=== PATIENT | male | born 1945 | race Hispanic/Latino ===

== ENCOUNTER 2019-07-13 21:02 | Inpatient (IN) | payer MEDICARE, SELFPAY ==
[2019-07-13 21:03] VITALS: BP 137/89; PULSE 111; RESP 26; TEMP 36.3; O2SAT 98; BMI 26.0
--- NOTE | 2019-07-13 21:26 | EKG12_ITS ---
Test Reason : DYSRHYTHMIA Blood Pressure : / mmHG Vent. Rate : 101 BPM Atrial Rate : 101 BPM P-R Int : 154 ms QRS Dur : 106 ms QT Int : 360 ms P-R-T Axes : 062 -73 074 degrees QTc Int : 466 ms Sinus tachycardia Left anterior fascicular block Poor R wave progression Abnormal ECG Confirmed by CHERELLE MALIN, MARINA ([id number]), publications editor SALEEM LAMB ([id number] on 07/15/2019 10:43:49 AM Referred By: Confirmed By:MARINA VILLARREAL MD
[2019-07-13] MEDS: 0.9% Normal Saline 1,000 ML 1000 ML IV (21:28)
--- NOTE | 2019-07-13 21:29 | ED.RN ---
NO OLD EKGS IN MUSE
[2019-07-13] MEDS: Ondansetron 4 MG/2 ML Vial IV (21:30)
[2019-07-13 21:37] LABS: Absolute Lymphocyte Count 0.58 X10^3/uL (0.83-4.51); Absolute Neutrophil Count 22.4 X10^3/uL (2.0-7.7); Basophil# 0.06 X10^3/uL; Basophil% 0.2 % (0-1); Hematocrit 54.5 % (40-54); Hemoglobin 17.1 g/dL (13.0-16.5); Lymphocyte # 0.58 X10^3/ul (4.0); Lymphocyte % 2.4 % (19-41); Mean Corp Hgb Conc 31.4 g/dL (32-36); Mean Corpuscular Hgb 31.5 pg (27.0-32.0); Mean Corpuscular Volume 100.6 fL (80-94); Mean Platelet Vol. 12.5 fl (6.2-12.0); Monocyte# 1.29 X10^3/uL; Monocyte% 5.2 % (0-10); NRBC Flagged by Analyzer 0 % (0-5); Neutrophil % 90.8 % (47-70); POSITIVE DIFFERENTIAL YES; Platelet Count 283 K/mm3 (150-450); RBC Distribution Width CV 12.6 % (11.6-14.6); RBC Distribution Width SD 46.9 fl (35.1-43.9); Red Blood Count 5.42 M/mm3 (4.6-6.2); White Blood Count 24.7 K/mm3 (4.4-11.0)
[2019-07-13 21:41] LABS: Differential Indicated SCAN CRITERIA MET
[2019-07-13 21:54] LABS: Bacteria 0 SEEN /hpf (None Seen); Mucous, Urine 0 SEEN /hpf (<or=2+); Red Blood Cells-Urine 0 SEEN /hpf (0-5); Squamous Epithelial Cells - UA 0 SEEN /hpf (0-5); White Blood Cells 0 SEEN /hpf (0-5)
--- NOTE | 2019-07-13 21:57 | RAD_ITS ---
HISTORY: SOB, NAUSEA/VOMITING, WEAKNESS X1 WEEKPATIENT UNABLE TO COOPERATE WITH BREATHING INSTRUCTIONS EXAM: XR Chest 2 Views: COMPARISON: None FINDINGS: # of images incl. paperwork: 3 Atherosclerotic plaque within the aortic arch Lungs are clear. Heart is not enlarged. Thoracic kyphosis with multiple anterior enthesophytes Pulmonary vascularity is distinct. No effusions. RAD/Chest PA and Lateral IMPRESSION: No acute cardiopulmonary disease perceived. at 2212 Reported and signed by: Shayne Bennett MD Electronically Signed: Shayne Bennett MD at 22:11 EDT Tel , Service support ,
[2019-07-13 21:59] LABS: Color, Urine Yellow (Yellow); Glucose, Dipstick 1000 mg/dl (Normal); Leukocyte Esterase-Dipstick Negative /ul (Negative); Nitrite-Dipstick Negative (Negative); Occult Blood-Urine 25 /ul (Negative); Protein-Dipstick 15 mg/dl (Negative); Specific Gravity, Urine 1.015 (1.002-1.030); Urine Bilirubin Dipstick Negative (Negative); Urine Clarity Clear (Clear); Urine Urobilinogen Normal (Normal)
[2019-07-13 22:01] LABS: Ketone-Dipstick 150 mg/dl (Negative)
[2019-07-13 22:02] LABS: AST(SGOT) 14 U/L (15-37); Alanine Aminotransfer ALT/SGPT 36 U/L (16-61); Albumin, Serum 4.2 g/dL (3.2-5.0); Alkaline Phosphatase 144 U/L (45-117); Anion Gap 35 (5-15); BUN 66 mg/dL (7-18); BUN/Creat Ratio 22.4 RATIO (10-20); Calcium,Total 9.4 mg/dL (8.5-10.1); Chloride 81 mmol/L (98-107); Creatinine, Serum 2.95 mg/dL (0.70-1.30); EST Glomerular Filtration Rate 22 mL/min (>60); Est Glom Filt Rate - Afr Amer 27 mL/min (>60); Estimated Creatinine Clearance 21.47 ml/min; Globulin 4.1 g/dL (2.2-4.2); Glucose 1345 mg/dL (74-106); Lactic Acid 4.3 mmol/L (0.4-1.9); Potassium 4.5 mmol/L (3.5-5.1); Protein, Total 8.3 g/dL (6.4-8.2); Sodium Level 124 mmol/L (136-145)
[2019-07-13 22:04] LABS: Anisocytosis RARE; Differential Comment SEE COMMENTS; Macrocytosis RARE; Platelet Estimate ADEQUATE (ADEQ); Red Cell Morphology N CHROM NORMAL (NORM C&C)
[2019-07-13 22:05] VITALS: BP 173/101; PULSE 105; RESP 24; TEMP 36.6; O2SAT 98
--- NOTE | 2019-07-13 22:16 | HP.PCM_ITS ---
Problem List (1) DKA (diabetic ketoacidoses) Status: Acute Qualifiers: Diabetes mellitus type: other specified (including IGNACIO) Diabetes mellitus complication detail: without coma Qualified Code(s): E13.10 - Other specified diabetes mellitus with ketoacidosis without coma (2) Lactic acidosis Status: Acute (3) GILBERTO (acute kidney injury) Status: Acute (4) Elevated BP without diagnosis of hypertension Status: Acute (5) Alcohol abuse Status: Chronic (6) Former tobacco use Status: Chronic History of Present Illness Date of Admission: 07/13/19 Chief Complaint: Dyspnea, N/V, malaise x 1 week The patient is a 73 y/o M w/ PMHx: EtOH Abuse (notes sober x 3 months), Former Tobacco use not on any medications who presents to the [facility] ED on 07/13/19 with history of dyspnea, increased urination, increased thirst x 1 week with onset now nausea today with emesis x 2 on day of ED presentation with lightheadedness not improving and worsening over the last 24 hours prompting ED presentation. He denies any cough, congestion, fever or chills, body aches or muscle aches, diarrhea but does admit that he has a alteration described per him as a loss of sense of taste starting 4 days prior however notes that he can still smell things. He denies any ill contacts. Work-up in the ED included T 97.9, heart rate initially 111, BP 137/89 with repeat 173/101, respiratory rate 26, 98% on room air, CBC with WBC 24.7, hemoglobin 17.1, platelet 283 with significant left shift with also concurrent lymphopenia, CMP with sodium 124, chloride 81, carbon oxide 8, anion gap 35, BUN/creatinine 66/2.95, glucose 1345, lactic acid 4.3, total bilirubin 1.10, AST/ALT 14/36, alk phos 144, urinalysis with specific gravity 1.015, protein 15, glucose 1000, ketones 150, occult blood 25 otherwise unremarkable, ethyl alcohol 4, chest x-ray with no acute cardiopulmonary findings, EKG w/ sinus tachycardia with no acute evidence of ischemia. In the ED patient administered Zofran, normal saline as well as initiated on an insulin drip. Discussed with ED physician and lower suspicion for COVID but given patient's symptoms to be cautious placed in COVID precautions with COVID testing requested. Past Medical History Past Medical History (Chronic Problems): Chronic Problems Alcohol abuse (Chronic) Former tobacco use (Chronic) Allergies No Known Allergies Allergy (Verified 07/13/19 21:05) Home Medications: Ambulatory Orders Medication Instructions Recorded NK 07/13/19 Surgical History: no surgical history Psychiatric History: No pertinent psych hx Lives: Spouse/ Significant Other Smoking Status: Former smoker Tobacco Use: Non-smoker Alcohol: Sober - Notes sober x 3 months. Drugs: None - *Family History Maternal History Items: - - Patient denies any market maternal or paternal family history including heart disease, diabetes or cancer. Paternal History Items: - - Patient denies any market maternal or paternal family history including heart disease, diabetes or cancer. Review of Systems Constitutional: Reports: Anorexia, Malaise, Weakness, Fatigue. Denies: Chills, Fever, Weight Change HEENT: Denies: Head Aches, Post Nasal Drip, Sinus Congestion, Sinus Drainage, Sore Throat, Visual Changes Cardiovascular: Reports: Light Headedness. Denies: Chest Pain, Chest Pressure, Chest Tightness, Orthopnea, Palpitations, Paroxysmal Noc. Dyspnea, Syncope Respiratory: Reports: Shortness of Breath. Denies: Cough, Shortness of breath at rest, Shortness of breath upon exertion, Sputum production, Wheezing Gastrointestinal: Reports: Nausea, Vomiting. Denies: Abdominal Pain, Constipation, Diarrhea Genitourinary: Denies: Dysuria Musculoskeletal: Denies: Joint Pain, Joint Tenderness, Muscle pain Skin: Denies: Rash, Wounds Neurological: Denies: Numbness, Tingling, Focal weakness Psychiatric: Denies: Anxiety, Depression, Homicidal Ideations, Suicidal Ideations Endocrine: Reports: Polydipsia, Polyuria Hematologic/ Lymphatic: Denies: Easy Bruising, Easy Bleeding VTE Information - Inpt Only VTE Present on Admission: No VTE Mechan Device Prophylaxis: SCD's VTE Pharm Prophylaxis ordered?: Yes Patient Problems: Active and Suspected Problems DKA (diabetic ketoacidoses) (Acute) Lactic acidosis (Acute) GILBERTO (acute kidney injury) (Acute) Elevated BP without diagnosis of hypertension (Acute) Subjective: Seated upright in the ED bed, fatigued and ill-appearing, no obvious distress. Objective: Physical Examination: General: awake, alert, oriented x 3 and cooperative, seated upright in the ED bed, fatigued and ill-appearing, translations via his granddaughter who is present. Skin: normal color, turgor, no icterus, cyanosis. HEENT: AT/NC, EOMI, injected sclera, PERRLA, dry MM, no carotid bruits or JVD noted. Lungs: Diminished breath sounds, greater bases, mildly increased respiratory rate otherwise no obvious distress, no rales, ronchi or wheezing. Heart: Tachycardic with regular rhythm; no gallop, rub audible. Abdomen: soft, NTTP, ND, normal BS, positive HM. Extremities: no cyanosis, clubbing, or edema. Neurological: patient awake, alert, oriented as noted; cognitive function near baseline intact per discussion with granddaughter who is familiar with patient; pupils equally reactive to light and accomodation; cranial nerves II-XII grossly normal, moving all 4 extremities, no focal deficits, strength severely global decrease secondary to acute presentation. Psychiatric: affect appears fatigued, ill-appearing, no acute evidence of depressive or anxiety feelings. - Physical Exam Vitals/I&O's: Vital Signs Temp Pulse Resp BP Pulse Ox 97.9 F 105 H 24 H 173/101 H 98 07/13/19 22:05 07/13/19 22:05 07/13/19 22:05 07/13/19 22:05 07/13/19 22:05 Oxygen Delivery Method Room Air Weight: 170 lb Body Mass Index (BMI) 26.0 Laboratory Results 07/13/19 21:30: WBC 24.7 H, RBC 5.42, Hgb 17.1 H, Hct 54.5 H, MCV 100.6 H, MCH 31.5, MCHC 31.4 L, RDW Std Deviation 46.9 H, RDW Coeff of Oscar 12.6, Plt Count 283, MPV 12.5 H, Immature Gran % (Auto) 1.400 H, Neut % (Auto) 90.8 H, Lymph % (Auto) 2.4 L, [place] % (Auto) 5.2, Eos % (Auto) 0.0, Baso % (Auto) 0.2, Absolute Neuts (auto) 22.4 H, Absolute Lymphs (auto) 0.58 L, Nucleated RBC % 0, Differential Comment SEE COMMENTS, Diff Path Review May foll, Platelet Estimate ADEQUATE, RBC Morphology N CHROM, Anisocytosis RARE, Macrocytosis RARE 07/13/19 21:30: Sodium 124 L, Potassium 4.5, Chloride 81 L, Carbon Dioxide 8.0 L*, Anion Gap 35 H, BUN 66 H, Creatinine 2.95 H, Estim Creat Clear Calc 21.47, Est GFR (MDRD) Af Amer 27 L, Est GFR (MDRD) Non-Af 22 L, BUN/Creatinine Ratio 22.4 H, Glucose 1345 H*, Calcium 9.4, Total Bilirubin 1.10 H, AST 14 L, ALT 36, Alkaline Phosphatase 144 H, Total Protein 8.3 H, Albumin 4.2, Globulin 4.1, Albumin/Globulin Ratio 1.0 07/13/19 21:30: Ethyl Alcohol 4.0 07/13/19 21:30: Lactic Acid 4.3 H* 07/13/19 21:50: Urine Color Yellow, Urine Clarity Clear, Urine pH 5.0, Ur Specific [place] 1.015, Urine Protein 15 H, Urine Glucose (UA) 1000 H, Urine Ketones 150 H, Urine Occult Blood 25 H, Urine Nitrite Negative, Urine Bilirubin Negative, Urine Urobilinogen Normal, Ur Leukocyte Esterase Negative, Urine RBC 0 SEEN, Urine WBC 0 SEEN, Ur Squamous Epith Cells 0 SEEN, Urine Bacteria 0 SEEN, Urine Mucus 0 SEEN Current Medications Sodium Chloride () 1,000 mls @ 1,000 mls/hr IV .Q1H ONE Stop: 07/13/19 22:24 Last Admin: 07/13/19 21:28 Dose: 1,000 mls/hr Documented by: Sodium Chloride () 1,000 mls @ 999 mls/hr IV .Q1H1M ONE Stop: 07/13/19 23:10 Insulin Human Lispro 100 unit/ (Sodium Chloride) 100 mls @ 7.711 mls/hr IV .[id number] [facility]; Protocol Assessment/Plan All Active Problems DKA (diabetic ketoacidoses) (Acute) Lactic acidosis (Acute) GILBERTO (acute kidney injury) (Acute) Elevated BP without diagnosis of hypertension (Acute) The patient is a 73 y/o M w/ PMHx: EtOH Abuse (notes sober x 3 months), Former Tobacco use not on any medications who presents to the [facility] ED on 07/13/19 with history of dyspnea, increased urination, increased thirst x 1 week with onset now nausea today with emesis x 2 on day of ED presentation with lightheadedness not improving and worsening over the last 24 hours prompting ED presentation. 1. DKA w/ Presumed New Onset Diabetes mellitus type II: Patient started on an insulin drip in the ED. Will admit to the ICU with ICU consultation, obtain ABG given notable CMP findings, continue on insulin drip, check serial K+, glucose w/ IVF changes pending these levels, serial chemistry, obtain mag, phos daily w/ repletion as needed, obtain HgbA1c, transition to SC regimen when gap closed w/ overlap on drip, nutrition consultation. Encouraged diet and insulin regimen compliance. Given patient reported alteration to sense of taste COVID testing has been requested but low suspicion. Will maintain on precautions pending these test results. 2. Lactic acidosis: Secondary to #1, admission LA 4.3, continue aggressive h ydration and trend per facility protocol. 3. Presumed Acute kidney injury: Secondary to acute presentation #1. Admission BUN/Cr 66/2.95, unclear prior baseline, will continue to aggressively hydrate as noted, hold any nephrotoxic regimen, if no improvement would obtain FeNa and renal US. 4. Elevated BP without HTN Diagnosis: Initial BP normal range, repeat elevated, continue to closely monitor and add regimen if appropriate, PRN hydralazine in interim. 5. History of alcohol abuse: Noted sobriety x3 months now, ethyl alcohol level unremarkable, case management consulted, magnesium and phosphorus levels requested as noted. Once patient clinically improved with resolution of nausea and emesis would initiate multivitamin thiamine and folic acid. 6. GERD: Maintain on protonix. 7. DVT Prophylaxis: SCDS, heparin. 8. CODE status: Patient does not have a healthcare power of sports attorney nor living will. Granddaughter is present and helping assist with translation. Discussed CODE status at length including difference between FULL code, DNR-CCA and DNR-CC status. Following discussions about the differences in these status, requested Full Code. Advanced Care Planning Face to Face Time: 16 minutes. Inpatient E&M: 79181 Init Hosp L3 Procedures: 61153 Advncd Care Plan 30 Min
[2019-07-13] MEDS: 0.9% Normal Saline 1,000 ML 999 ML IV (22:23)
--- NOTE | 2019-07-13 22:26 | ED.DCSUM_ITS ---
History of Present Illness Chief Complaint: Shortness of Breath Detail of Chief Complaint: Patient reports shortness of breath for the past couple of days. Informant: Patient, Family, - - Family members were interpreters Onset: Days Context: Sudden Onset Timing: Continuous Quality: Shortness of breath, nausea vomiting, polyuria, polydipsia Location: Not applicable Current Severity: Severe Maximum Severity: Severe Worsened by: Nothing Relieved by: Nothing Associated Symptoms: No other symptoms Narrative: Patient is a 73-year-old nonspeaking male who has been in the [place] for the past 3 months. He has no medical problems. Family states he drank daily until 3 months ago. He has had 1 drink in the past week. There is no history of PE or DVT. There is no past medical history. He denies chest pain. He denies abdominal pain. He denies joint pain or swelling. Prior similar symptoms: No Recent Illness/Hospitalization: No Past Medical History - Allergies and Home Meds Allergies/Adverse Reactions: Allergies No Known Allergies Allergy (Verified 07/13/19 21:05) Primary Care Physician: Care Physician,No Primary [Primary Care Provider] - Prior records reviewed: No Past Medical History: None Surgical History: noncontributory Lives: With Family Smoking Status: Never smoker Alcohol: Sober Drugs: None Review of Systems General: Reports: Malaise. Denies: Chills, Fever, Subjective Eyes: Denies: Visual changes - bilaterally, Blurred Vision - bilaterally ENT: Denies: Bilateral ear pain, Rhinorrhea, Sore throat Cardiovascular: Denies: Chest pain, Palpitations Respiratory: Reports: Dyspnea. Denies: Cough, Sputum, Dyspnea on exertion, Orthopnea, Paroxysmal nocturnal dyspnea, -, - Gastrointestinal: Reports: Nausea, Vomiting. Denies: Abdominal pain, Diarrhea, Constipation, Melena, Hematochezia, -, - Genitourinary: Denies: Dysuria, Hematuria, Frequency Musculoskeletal: Denies: Myalgias, Arthralgias, Neck pain, Back pain, Swelling, Extremity Pain, -, - Skin: Denies: Rash, Wounds Neurological: Reports: Weakness. Denies: Headache, Parasthesia, Numbness Psych: Denies: Depression, Anxiety Endocrine: Reports: Polyuria, Polydipsia. Denies: Heat intolerance, Cold intolerance Hematologic: Denies: Easy bruising, Easy bleeding Allergy: Denies: Uticaria, Swelling of the mouth, Swelling of the tongue Physical Exam Vital Signs/Narrative: Vital Signs Temp Pulse Resp BP Pulse Ox 07/13/19 22:05 97.9 F 105 H 24 H 173/101 H 98 07/13/19 21:03 97.4 F L 111 H 26 H 137/89 H 98 Inital Vital Signs reviewed: Yes General: Well nourished, Well developed, No Acute Distress Head: Normocephalic, Atraumatic Eyes: Perrl, EOMI ENT: No rhinorrhea, TM's clear, Dry mucous membranes. Negative for: Nasal congestion, Sinus tenderness Neck: Supple, Nontender, No lymphadenopathy, No JVD Cardiovascular: Regular rhythm, No murmurs, Tachycardia Respiratory: No distress, CTA bilaterally, Chest nontender, - - Patient is tachypneic. Abdomen: Soft, Nontender, Nondistended, Normal bowel sounds Back: Nontender, Normal Inspection. Negative for: CVA tenderness, Spinal tenderness Extremities: Nontender, No edema Skin: Normal color, No rash, No Trauma. Negative for: Cyanosis, Diaphoresis, Jaundice Neurological: Alert, Oriented x3, Cranial nerves II-XII grossly intact, Normal Strength, Normal Sensation, Normal DTR Psychological: Normal affect, Normal Mood Diagnostic/Tx/Re-eval Chest X-Ray - ED: 2 View, Read by Radiologist, Normal, Heart, Lungs, Mediastinum, Bony Structures, No Acute Disease Impressions Chest X-Ray 07/13/19 21:57 IMPRESSION: No acute cardiopulmonary disease perceived. at 2212 Reported and signed by: Shayne Bennett MD Electronically Signed: Shayne Bennett MD at 22:11 EDT Tel , Service support , 07/13/19 21:57 Chest PA and Lateral [RAD] Stat Laboratory Results 07/13/19 07/13/19 07/13/19 21:30 21:30 21:30 WBC 24.7 H RBC 5.42 Hgb 17.1 H Hct 54.5 H MCV 100.6 H MCH 31.5 MCHC 31.4 L RDW Std Deviation 46.9 H RDW Coeff of Oscar 12.6 Plt Count 283 MPV 12.5 H Immature Gran % (Auto) 1.400 H Neut % (Auto) 90.8 H Lymph % (Auto) 2.4 L [place] % (Auto) 5.2 Eos % (Auto) 0.0 Baso % (Auto) 0.2 Absolute Neuts (auto) 22.4 H Absolute Lymphs (auto) 0.58 L Nucleated RBC % 0 Differential Comment SEE COMMENTS Diff Path Review May foll Platelet Estimate ADEQUATE RBC Morphology N CHROM Anisocytosis RARE Macrocytosis RARE Sodium 124 L Potassium 4.5 Chloride 81 L Carbon Dioxide 8.0 L* Anion Gap 35 H BUN 66 H Creatinine 2.95 H Estim Creat Clear Calc 21.47 Est GFR (MDRD) Af Amer 27 L Est GFR (MDRD) Non-Af 22 L BUN/Creatinine Ratio 22.4 H Glucose 1345 H* Lactic Acid Calcium 9.4 Total Bilirubin 1.10 H AST 14 L ALT 36 Alkaline Phosphatase 144 H Total Protein 8.3 H Albumin 4.2 Globulin 4.1 Albumin/Globulin Ratio 1.0 Urine Color Urine Clarity Urine pH Ur Specific [place] Urine Protein Urine Glucose (UA) Urine Ketones Urine Occult Blood Urine Nitrite Urine Bilirubin Urine Urobilinogen Ur Leukocyte Esterase Urine RBC Urine WBC Ur Squamous Epith Cells Urine Bacteria Urine Mucus Ethyl Alcohol 4.0 Acetone Level 07/13/19 07/13/19 07/13/19 21:30 21:30 21:50 WBC RBC Hgb Hct MCV MCH MCHC RDW Std Deviation RDW Coeff of [place] Plt Count MPV Immature Gran % (Auto) Neut % (Auto) Lymph % (Auto) Green % (Auto) Eos % (Auto) Baso % (Auto) Absolute Neuts (auto) Absolute Lymphs (auto) Nucleated RBC % Differential Comment Diff Path Review Platelet Estimate RBC Morphology Anisocytosis Macrocytosis Sodium Potassium Chloride Carbon Dioxide Anion Gap BUN Creatinine Estim Creat Clear Calc Est GFR (MDRD) Af Amer Est GFR (MDRD) Non-Af BUN/Creatinine Ratio Glucose Lactic Acid 4.3 H* Calcium Total Bilirubin AST ALT Alkaline Phosphatase Total Protein Albumin Globulin Albumin/Globulin Ratio Urine Color Yellow Urine Clarity Clear Urine pH 5.0 Ur Specific [place] 1.015 Urine Protein 15 H Urine Glucose (UA) 1000 H Urine Ketones 150 H Urine Occult Blood 25 H Urine Nitrite Negative Urine Bilirubin Negative Urine Urobilinogen Normal Ur Leukocyte Esterase Negative Urine RBC 0 SEEN Urine WBC 0 SEEN Ur Squamous Epith Cells 0 SEEN Urine Bacteria 0 SEEN Urine Mucus 0 SEEN Ethyl Alcohol Acetone Level LARGE H Patient has elevated white count and elevated lactate will obtain blood cultures. Patient does not have source. Suspect the elevated white count are lactate are due to the DKA, stress reaction. - Rhythm Strip Rhythm Strip: Sinus Tach Rate: 122 Ectopy: None - EKG Initial EKG Interpretation: Sinus Tachycardia - Tachycardia rate of 101. There is evidence of a left anterior fascicular block. DE interval is 154 ms. QRS duration 106 ms. QT duration 360 ms. [place] to left. - Medical Decision Making Presents with shortness of breath. He is tachycardic and tachypneic. He is clinically profoundly dehydrated. Fact that he has had increased urination concern patient may have DKA. Doubt AKA. Doubt PE or DVT. Will obtain EKG, chest x-ray and appropriate labs. He did receive 1 L of normal saline. He will receive a second liter of normal saline prior to initiation of insulin at 0.1 units/kg. EKG was obtained to assess for hyperkalemia and ischemia which is not uncommon if patient in DKA. - Critical Care Time Critical care time (excluding procedures): 30-74 minutes - Critical care time 33 minutes including need for family members to obtain history, documentation, treatments., Discussing w/Patient &/or Family/Piece Worker - Use of interpreter for the deaf and history from family members., Discussing w/Consultants, Arranging Admission or Transfer ED Disposition - Plan for ED Patient: Disposition: Acute Care Hospital [facility] Diagnosis: Diabetic ketoacidosis, Leukocytosis, Lactic acidosis due to diabetes mellitus, Acute kidney injury Referrals: Care Physician,No Primary [Primary Care Provider] -
[2019-07-13 22:41] VITALS: BP 165/97; PULSE 105; RESP 24; TEMP 36.6; O2SAT 98
--- NOTE | 2019-07-13 22:53 | ED.RN ---
Dr Phillips notified accucheck reading hi. no need for serum glucose per
[2019-07-13 23:00] VITALS: BP 151/88; PULSE 104; RESP 24; TEMP 36.6; O2SAT 99
[2019-07-13 23:08] LABS: Blood Gas Specimen Type ART
[2019-07-13 23:09] LABS: Allen Test POS; O2 Delivery Device Room Air; SITE R RADIAL; Time Given 2158; pH 7.21 (7.35-7.45)
[2019-07-13 23:10] LABS: Base Excess -23 mmol/L (-2 to +2); Bicarbonate 4.5 mmol/L (22-26); PO2 125 mmHG (75-100); SO2 98 % (95-99); Total Carbon Dioxide < 5 mmol/L; pCO2 11.2 mmHg (35-45)
--- NOTE | 2019-07-13 23:15 | CPS ---
Critical values observed/read by Dr. Phillips. I didn't have enough blood to run another gas due to critically low pH (7.208)
--- NOTE | 2019-07-13 23:47 | ED.RN ---
report called to peter
[2019-07-14] VITALS (33 sets, daily range): BP systolic 102–143; BP diastolic 65–90; PULSE 75–115; RESP 13–24; TEMP 36.8–37.2; O2SAT 96–100; BMI 25.7
[2019-07-14] MEDS: 0.9% Normal Saline 1,000 ML 150 ML IV (00:30)
[2019-07-14 00:46] LABS: Lipase 12853 U/L (73-393); Magnesium 3.4 mg/dL (1.6-2.6); Phosphorus 6.6 mg/dL (2.5-4.9)
[2019-07-14 01:02] LABS: Anion Gap 27 (5-15); BUN 66 mg/dL (7-18); BUN/Creat Ratio 29.3 RATIO (10-20); Calcium,Total 8.2 mg/dL (8.5-10.1); Chloride 98 mmol/L (98-107); Creatinine, Serum 2.25 mg/dL (0.70-1.30); EST Glomerular Filtration Rate 31 mL/min (>60); Est Glom Filt Rate - Afr Amer 37 mL/min (>60); Estimated Creatinine Clearance 28.15 ml/min; Glucose 974 mg/dL (74-106); Potassium 3.6 mmol/L (3.5-5.1); Sodium Level 134 mmol/L (136-145)
[2019-07-14 01:10] LABS: Reflex Lactate? N
[2019-07-14 01:16] LABS: Bedside Glucose > 500 mg/dL (70-110)
[2019-07-14 01:16] LABS: Bedside Glucose > 500 mg/dL (70-110)
[2019-07-14 01:16] LABS: Bedside Glucose > 500 mg/dL (70-110)
[2019-07-14 01:17] LABS: Lactic Acid 2.6 mmol/L (0.4-1.9)
--- NOTE | 2019-07-14 01:43 | US_ITS ---
STUDY: ABDOMINAL ULTRASOUND - RIGHT UPPER QUADRANT REASON FOR VISIT: Male, 73 years old ACUTE PANCREATITIS -- LANGUAGE BARRIER -- COVIG PRECAUTIONS TECHNIQUE: Ultrasound evaluation of the right upper quadrant was performed with real-time and static steel-scale imaging. TECHNICAL QUALITY: Limited. Examination limited by bowel gas. COMPARISON: None. FINDINGS: Liver: The liver measures 14.1 cm. There is normal echogenicity of the liver. The bile ducts are within normal limits. There is hepatic color flow. The direction of portal flow is hepatopetal. There is no demonstrated mass lesion. Gallbladder: Normal distended gallbladder. The gallbladder wall measures 2.5 mm. There is a negative sonographic Shearer''s sign. There is no pericholecystic fluid. There are no gallstones. Common Bile Duct (C.B.D.): The common bile duct measures 3.8 mm. Pancreas: Normal size of the head, body and tail of the pancreas. There is increased echogenicity of the pancreas. There is no demonstrated pancreatic mass or cyst. Right Kidney: Normal size of the right kidney. The right kidney measures 10.6 cm x 5.3 cm x 7.3 cm. Normal renal cortex. The right cortex measures 1.7 cm. There is no demonstrated renal mass or cyst. There is no right hydronephrosis. US/Abdomen Limited IMPRESSION: Normal right upper quadrant ultrasound examination. Electronically Signed: Grover Carlson, at 9:45 EDT , Service support ,
[2019-07-14 02:41] LABS: Glucose 709 mg/dL (74-106)
[2019-07-14 02:56] LABS: Bedside Glucose > 500 mg/dL (70-110)
[2019-07-14 04:06] LABS: Absolute Lymphocyte Count 0.99 X10^3/uL (0.83-4.51); Absolute Neutrophil Count 15.4 X10^3/uL (2.0-7.7); Basophil# 0.02 X10^3/uL; Basophil% 0.1 % (0-1); Hematocrit 44.5 % (40-54); Hemoglobin 15.4 g/dL (13.0-16.5); Lymphocyte # 0.99 X10^3/ul (4.0); Lymphocyte % 5.5 % (19-41); Mean Corp Hgb Conc 34.6 g/dL (32-36); Mean Corpuscular Hgb 31.2 pg (27.0-32.0); Mean Corpuscular Volume 90.1 fL (80-94); Monocyte# 1.48 X10^3/uL; Monocyte% 8.2 % (0-10); NRBC Flagged by Analyzer 0 % (0-5); Neutrophil # 15.44 X10^3/uL (2.7-7.7); Neutrophil % 85.5 % (47-70); POSITIVE MORPHOLOGY YES; Platelet Count 210 K/mm3 (150-450); RBC Distribution Width CV 11.9 % (11.6-14.6); RBC Distribution Width SD 39.3 fl (35.1-43.9); Red Blood Count 4.94 M/mm3 (4.6-6.2); White Blood Count 18.1 K/mm3 (4.4-11.0)
[2019-07-14 04:26] LABS: Blood Gas Specimen Type VEN; O2 Delivery Device Room Air; SITE OTHER
[2019-07-14 04:27] LABS: Time Given 404; VBG BASE EXCESS -19 mmol/L (-1.0-3.5); VBG Bicarbonate 9 mmol/L (22-26); VBG PO2 44 mmHg (25-40); VBG SO2 71 % (50-70); VBG pCO2 23.1 mmHg (41-51); VBG pH 7.21 (7.32-7.42)
[2019-07-14 04:28] LABS: Differential Indicated SCAN CRITERIA MET
[2019-07-14 04:29] LABS: Differential Comment SCANNED
[2019-07-14 04:30] LABS: ALB/GLOB Ratio 0.9 RATIO (0.9-2.4); AST(SGOT) 16 U/L (15-37); Alanine Aminotransfer ALT/SGPT 30 U/L (16-61); Albumin, Serum 3.4 g/dL (3.2-5.0); Alkaline Phosphatase 131 U/L (45-117); Anion Gap 22 (5-15); BUN 68 mg/dL (7-18); BUN/Creat Ratio 33.5 RATIO (10-20); Calcium,Total 8.3 mg/dL (8.5-10.1); Chloride 103 mmol/L (98-107); Cholesterol 163 mg/dL (200); Creatinine, Serum 2.03 mg/dL (0.70-1.30); EST Glomerular Filtration Rate 35 mL/min (>60); Est Glom Filt Rate - Afr Amer 42 mL/min (>60); Globulin 3.6 g/dL (2.2-4.2); Glucose 659 mg/dL (74-106); High Density Lipoprotein 41 mg/dL; Phosphorus 1.2 mg/dL (2.5-4.9); Potassium 4.2 mmol/L (3.5-5.1); Sodium Level 136 mmol/L (136-145); Triglycerides 135 mg/dL; Very Low Density Lipoprotein 27 mg/dL (5-40)
[2019-07-14] MEDS: Sodium Bicarbonate 8.4% 50 ML Syringe 100 MEQ IV (04:42)
[2019-07-14] MEDS: 0.9% Saline Lock 10 ML Syringe IV ×2 (04:45→05:35)
[2019-07-14 04:57] LABS: Reflex Lactate? Y
--- NOTE | 2019-07-14 06:18 | CON.PCM_ITS ---
Reason for Consult Date of Consultation: 07/14/19 Reason for Consultation: Diabetic ketoacidosis History of Present Illness: The patient is a 73-year-old male, with a history as outlined below, who presented to the emergency department on July 12 with complaints of shortness of breath, nausea, vomiting and polyuria. The patient is a citizen of [place], but has been residing with family here in the [place] for the last 3 months. He is non- French speaking. He does have a longstanding history of alcohol dependency, which has apparently been in remission over the last 3 months. History pertinent to the patient's hospitalization was obtained with the assistance of his granddaughter, present at the bedside, who provided translational services. The patient was never previously diagnosed with diabetes mellitus. He previously used to drink a combination of both beer and tequila daily. He has apparently cut back significantly since being in the [facility]. However, he did admit to me that on several days over the course of the last week he did consume beer. On presentation to the emergency department, the patient was noted to be afebrile and hemodynamically stable. He was, nevertheless, tachycardic and tachypneic. Laboratory evaluation revealed an elevated white blood cell count to 25,000. Chemistry profile was notable for a sodium of 124, chloride of 81, bicarbonate of 8.0, anion gap of 35 and creatinine of 2.95. Glucose was elevated to 1345. Hemoglobin A1c was noted to be 11.0. Initial lactate was elevated to 4.3. Lipase was elevated to 12,853. Serum alcohol level was negative. Acetone level was large. COVID testing was negative. The patient was ordered to receive supplemental IV fluid hydration and was placed on a continuous insulin infusion. He was subsequently admitted to the medical intensive care unit for management of diabetic ketoacidosis. Past Medical History Past Medical History (Chronic Problems): Chronic Problems Alcohol abuse (Chronic) Former tobacco use (Chronic) Allergies No Known Allergies Allergy (Verified 07/13/19 21:05) Home Medications: Ambulatory Orders Medication Instructions Recorded NK 07/13/19 Surgical History: no surgical history Psychiatric History: No pertinent psych hx Lives: Spouse/ Significant Other Smoking Status: Never smoker Tobacco Use: Non-smoker Alcohol: Sober - Notes sober x 3 months. Drugs: None - *Family History Maternal History Items: - - Patient denies any market maternal or paternal family history including heart disease, diabetes or cancer. Paternal History Items: - - Patient denies any market maternal or paternal family history including heart disease, diabetes or cancer. Review of Systems Constitutional: Denies: Chills, Fever Eyes: Denies: Blurred vision, Double vision HEENT: Denies: Difficulty Hearing, Difficulty Swallowing Cardiovascular: Denies: Chest Pain, Chest Tightness Respiratory: Reports: Shortness of Breath Gastrointestinal: Reports: Abdominal Pain, Nausea, Vomiting Genitourinary: Reports: Frequency Musculoskeletal: Denies: Joint Pain, Joint Tenderness Skin: Denies: Rash, Wounds Neurological: Denies: Numbness, Tingling, Focal weakness Psychiatric: Denies: Anxiety, Depression, Homicidal Ideations, Suicidal Ideations Hematologic/ Lymphatic: Denies: Easy Bruising, Easy Bleeding Patient Problems: Active and Suspected Problems DKA (diabetic ketoacidoses) (Acute) Lactic acidosis (Acute) GILBERTO (acute kidney injury) (Acute) Elevated BP without diagnosis of hypertension (Acute) Diabetic ketoacidosis (Acute) Leukocytosis (Acute) Lactic acidosis due to diabetes mellitus (Acute) Acute kidney injury (Acute) Objective: The patient's most recent lab work, culture data and imaging studies have all been personally reviewed. Coronavirus PCR was negative. - Physical Exam Vitals/I&O's: Vital Signs Temp Pulse Resp BP Pulse Ox 98.9 F 98 19 H 121/75 H 97 07/14/19 04:00 07/14/19 06:00 07/14/19 06:00 07/14/19 06:00 07/14/19 06:00 Oxygen Delivery Method Room Air Weight: 167 lb 12.348 oz Body Mass Index (BMI) 25.7 Intake and Output for Last 24 Hours 07/12/19 07/13/19 07/14/19 23:59 23:59 23:59 Intake Total 744.69 / 744.69 Output Total 1600 / 1600 Balance -855.31 / -855.31 General: Alert, Cooperative, No apparent distress HEENT: Atraumatic, Normocephalic Oral: No Gingival or Mucosal Lesions/ Ulcerations Neck: Supple, No Nodes, Trachea Midline Lungs: No rhonchi, No wheeze, No rales, Diminished Cardiovascular: Normal S1, Normal S2, No murmurs, Tachycardic Abdomen: Bowel Sounds Present, Soft, Non Tender Extremities: No clubbing, No cyanosis, No edema Skin: No breakdown Musculoskeletal: No Muscle Wasting Lymphatic: No Cervical, Supraclavicular, or Inguinal Adenopathy Neurological: Neuro grossly intact Psych/Mental Status: Normal Affect Labs (Last 48 Hours) 07/13/19 07/13/19 07/13/19 21:30 21:30 21:30 WBC 24.7 H RBC 5.42 Hgb 17.1 H Hct 54.5 H MCV 100.6 H MCH 31.5 MCHC 31.4 L RDW Std Deviation 46.9 H RDW Coeff of Oscar 12.6 Plt Count 283 MPV 12.5 H Immature Gran % (Auto) 1.400 H Neut % (Auto) 90.8 H Lymph % (Auto) 2.4 L [place] % (Auto) 5.2 Eos % (Auto) 0.0 Baso % (Auto) 0.2 Absolute Neuts (auto) 22.4 H Absolute Lymphs (auto) 0.58 L Nucleated RBC % 0 Differential Comment SEE COMMENTS Diff Path Review May foll Platelet Estimate ADEQUATE RBC Morphology N CHROM Anisocytosis RARE Macrocytosis RARE Specimen Type Sample Site pH Bicarbonate Actual POC Total CO2 Base Excess O2 Saturation ABG pCO2 ABG pO2 Rod Test VBG pH VBG pO2 VBG O2 Sat (Calc) VBG O2 Content VBG Base Excess POC Mix VBG pCO2 Pt Tmp O2 Delivery Device Blood Gas Notified Whom Blood Gas Notified Time Sodium 124 L Potassium 4.5 Chloride 81 L Carbon Dioxide 8.0 L* Anion Gap 35 H BUN 66 H Creatinine 2.95 H Estim Creat Clear Calc 21.47 Est GFR (MDRD) Af Amer 27 L Est GFR (MDRD) Non-Af 22 L BUN/Creatinine Ratio 22.4 H Glucose 1345 H* Hemoglobin A1c Lactic Acid Calcium 9.4 Phosphorus Magnesium Total Bilirubin 1.10 H AST 14 L ALT 36 Alkaline Phosphatase 144 H Troponin I Total Protein 8.3 H Albumin 4.2 Globulin 4.1 Albumin/Globulin Ratio 1.0 Triglycerides Cholesterol LDL Cholesterol VLDL Cholesterol HDL Cholesterol Lipase Urine Color Urine Clarity Urine pH Ur Specific [place] Urine Protein Urine Glucose (UA) Urine Ketones Urine Occult Blood Urine Nitrite Urine Bilirubin Urine Urobilinogen Ur Leukocyte Esterase Urine RBC Urine WBC Ur Squamous Epith Cells Urine Bacteria Urine Mucus Ethyl Alcohol 4.0 Acetone Level COVID-19 (MISSY) POC Glucose 07/13/19 07/13/19 07/13/19 21:30 21:30 21:30 WBC RBC Hgb Hct MCV MCH MCHC RDW Std Deviation RDW Coeff of Oscar Plt Count MPV Immature Gran % (Auto) Neut % (Auto) Lymph % (Auto) [place] % (Auto) Eos % (Auto) Baso % (Auto) Absolute Neuts (auto) Absolute Lymphs (auto) Nucleated RBC % Differential Comment Diff Path Review Platelet Estimate RBC Morphology Anisocytosis Macrocytosis Specimen Type Sample Site pH Bicarbonate Actual POC Total CO2 Base Excess O2 Saturation ABG pCO2 ABG pO2 Rod Test VBG pH VBG pO2 VBG O2 Sat (Calc) VBG O2 Content VBG Base Excess POC Mix VBG pCO2 Pt Tmp O2 Delivery Device Blood Gas Notified Whom Blood Gas Notified Time Sodium Potassium Chloride Carbon Dioxide Anion Gap BUN Creatinine Estim Creat Clear Calc Est GFR (MDRD) Af Amer Est GFR (MDRD) Non-Af BUN/Creatinine Ratio Glucose Hemoglobin A1c Lactic Acid 4.3 H* Calcium Phosphorus 6.6 H Magnesium 3.4 H Total Bilirubin AST ALT Alkaline Phosphatase Troponin I 0.017 Total Protein Albumin Globulin Albumin/Globulin Ratio Triglycerides Cholesterol LDL Cholesterol VLDL Cholesterol HDL Cholesterol Lipase 24415 H Urine Color Urine Clarity Urine pH Ur Specific [place] Urine Protein Urine Glucose (UA) Urine Ketones Urine Occult Blood Urine Nitrite Urine Bilirubin Urine Urobilinogen Ur Leukocyte Esterase Urine RBC Urine WBC Ur Squamous Epith Cells Urine Bacteria Urine Mucus Ethyl Alcohol Acetone Level LARGE H COVID-19 (MISSY) POC Glucose 07/13/19 07/13/19 07/13/19 21:30 21:50 21:58 WBC RBC Hgb Hct MCV MCH MCHC RDW Std Deviation RDW Coeff of Oscar Plt Count MPV Immature Gran % (Auto) Neut % (Auto) Lymph % (Auto) [place] % (Auto) Eos % (Auto) Baso % (Auto) Absolute Neuts (auto) Absolute Lymphs (auto) Nucleated RBC % Differential Comment Diff Path Review Platelet Estimate RBC Morphology Anisocytosis Macrocytosis Specimen Type ART Sample Site R RADIAL pH 7.21 L Bicarbonate Actual 4.5 L POC Total CO2 < 5 Base Excess -23 L O2 Saturation 98 ABG pCO2 11.2 L* ABG pO2 125 H Rod Test POS VBG pH VBG pO2 VBG O2 Sat (Calc) VBG O2 Content VBG Base Excess POC Mix VBG pCO2 Pt Tmp O2 Delivery Device Room Air Blood Gas Notified Whom ED Blood Gas Notified Time 215 Sodium Potassium Chloride Carbon Dioxide Anion Gap BUN Creatinine Estim Creat Clear Calc Est GFR (MDRD) Af Amer Est GFR (MDRD) Non-Af BUN/Creatinine Ratio Glucose Hemoglobin A1c 11.0 H Lactic Acid Calcium Phosphorus Magnesium Total Bilirubin AST ALT Alkaline Phosphatase Troponin I Total Protein Albumin Globulin Albumin/Globulin Ratio Triglycerides Cholesterol LDL Cholesterol VLDL Cholesterol HDL Cholesterol Lipase Urine Color Yellow Urine Clarity Clear Urine pH 5.0 Ur Specific [place] 1.015 Urine Protein 15 H Urine Glucose (UA) 1000 H Urine Ketones 150 H Urine Occult Blood 25 H Urine Nitrite Negative Urine Bilirubin Negative Urine Urobilinogen Normal Ur Leukocyte Esterase Negative Urine RBC 0 SEEN Urine WBC 0 SEEN Ur Squamous Epith Cells 0 SEEN Urine Bacteria 0 SEEN Urine Mucus 0 SEEN Ethyl Alcohol Acetone Level COVID-19 (MISSY) POC Glucose 07/13/19 07/13/19 07/13/19 22:29 22:57 23:30 WBC RBC Hgb Hct MCV MCH MCHC RDW Std Deviation RDW Coeff of Oscar Plt Count MPV Immature Gran % (Auto) Neut % (Auto) Lymph % (Auto) [place] % (Auto) Eos % (Auto) Baso % (Auto) Absolute Neuts (auto) Absolute Lymphs (auto) Nucleated RBC % Differential Comment Diff Path Review Platelet Estimate RBC Morphology Anisocytosis Macrocytosis Specimen Type Sample Site pH Bicarbonate Actual POC Total CO2 Base Excess O2 Saturation ABG pCO2 ABG pO2 Rod Test VBG pH VBG pO2 VBG O2 Sat (Calc) VBG O2 Content VBG Base Excess POC Mix VBG pCO2 Pt Tmp O2 Delivery Device Blood Gas Notified Whom Blood Gas Notified Time Sodium Potassium Chloride Carbon Dioxide Anion Gap BUN Creatinine Estim Creat Clear Calc Est GFR (MDRD) Af Amer Est GFR (MDRD) Non-Af BUN/Creatinine Ratio Glucose Hemoglobin A1c Lactic Acid Calcium Phosphorus Magnesium Total Bilirubin AST ALT Alkaline Phosphatase Troponin I Total Protein Albumin Globulin Albumin/Globulin Ratio Triglycerides Cholesterol LDL Cholesterol VLDL Cholesterol HDL Cholesterol Lipase Urine Color Urine Clarity Urine pH Ur Specific [place] Urine Protein Urine Glucose (UA) Urine Ketones Urine Occult Blood Urine Nitrite Urine Bilirubin Urine Urobilinogen Ur Leukocyte Esterase Urine RBC Urine WBC Ur Squamous Epith Cells Urine Bacteria Urine Mucus Ethyl Alcohol Acetone Level COVID-19 (MISSY) POC Glucose > 500 H* > 500 H* > 500 H* 07/14/19 07/14/19 07/14/19 00:19 00:20 00:20 WBC RBC Hgb Hct MCV MCH MCHC RDW Std Deviation RDW Coeff of Oscar Plt Count MPV Immature Gran % (Auto) Neut % (Auto) Lymph % (Auto) [place] % (Auto) Eos % (Auto) Baso % (Auto) Absolute Neuts (auto) Absolute Lymphs (auto) Nucleated RBC % Differential Comment Diff Path Review Platelet Estimate RBC Morphology Anisocytosis Macrocytosis Specimen Type Sample Site pH Bicarbonate Actual POC Total CO2 Base Excess O2 Saturation ABG pCO2 ABG pO2 Rod Test VBG pH VBG pO2 VBG O2 Sat (Calc) VBG O2 Content VBG Base Excess POC Mix VBG pCO2 Pt Tmp O2 Delivery Device Blood Gas Notified Whom Blood Gas Notified Time Sodium 134 L Potassium 3.6 Chloride 98 Carbon Dioxide 9.0 L* Anion Gap 27 H BUN 66 H Creatinine 2.25 H Estim Creat Clear Calc 28.15 Est GFR (MDRD) Af Amer 37 L Est GFR (MDRD) Non-Af 31 L BUN/Creatinine Ratio 29.3 H Glucose 974 H* Hemoglobin A1c Lactic Acid 2.6 H* Calcium 8.2 L Phosphorus Magnesium Total Bilirubin AST ALT Alkaline Phosphatase Troponin I Total Protein Albumin Globulin Albumin/Globulin Ratio Triglycerides Cholesterol LDL Cholesterol VLDL Cholesterol HDL Cholesterol Lipase Urine Color Urine Clarity Urine pH Ur Specific [place] Urine Protein Urine Glucose (UA) Urine Ketones Urine Occult Blood Urine Nitrite Urine Bilirubin Urine Urobilinogen Ur Leukocyte Esterase Urine RBC Urine WBC Ur Squamous Epith Cells Urine Bacteria Urine Mucus Ethyl Alcohol Acetone Level COVID-19 (MISSY) POC Glucose > 500 H* 07/14/19 07/14/19 07/14/19 01:15 02:05 03:55 WBC 18.1 H RBC 4.94 Hgb 15.4 Hct 44.5 MCV 90.1 D MCH 31.2 MCHC 34.6 D RDW Std Deviation 39.3 RDW Coeff of Oscar 11.9 Plt Count 210 MPV 12.0 Immature Gran % (Auto) 0.700 Neut % (Auto) 85.5 H Lymph % (Auto) 5.5 L [place] % (Auto) 8.2 Eos % (Auto) 0.0 Baso % (Auto) 0.1 Absolute Neuts (auto) 15.4 H Absolute Lymphs (auto) 0.99 Nucleated RBC % 0 Differential Comment SCANNED Diff Path Review Platelet Estimate RBC Morphology Anisocytosis Macrocytosis Specimen Type Sample Site pH Bicarbonate Actual POC Total CO2 Base Excess O2 Saturation ABG pCO2 ABG pO2 Rod Test VBG pH VBG pO2 VBG O2 Sat (Calc) VBG O2 Content VBG Base Excess POC Mix VBG pCO2 Pt Tmp O2 Delivery Device Blood Gas Notified Whom Blood Gas Notified Time Sodium Potassium Chloride Carbon Dioxide Anion Gap BUN Creatinine Estim Creat Clear Calc Est GFR (MDRD) Af Amer Est GFR (MDRD) Non-Af BUN/Creatinine Ratio Glucose 709 H* Hemoglobin A1c Lactic Acid Calcium Phosphorus Magnesium Total Bilirubin AST ALT Alkaline Phosphatase Troponin I Total Protein Albumin Globulin Albumin/Globulin Ratio Triglycerides Cholesterol LDL Cholesterol VLDL Cholesterol HDL Cholesterol Lipase Urine Color Urine Clarity Urine pH Ur Specific [place] Urine Protein Urine Glucose (UA) Urine Ketones Urine Occult Blood Urine Nitrite Urine Bilirubin Urine Urobilinogen Ur Leukocyte Esterase Urine RBC Urine WBC Ur Squamous Epith Cells Urine Bacteria Urine Mucus Ethyl Alcohol Acetone Level COVID-19 (MISSY) Pending POC Glucose 07/14/19 07/14/19 07/14/19 03:55 03:58 05:35 WBC RBC Hgb Hct MCV MCH MCHC RDW Std Deviation RDW Coeff of Oscar Plt Count MPV Immature Gran % (Auto) Neut % (Auto) Lymph % (Auto) [place] % (Auto) Eos % (Auto) Baso % (Auto) Absolute Neuts (auto) Absolute Lymphs (auto) Nucleated RBC % Differential Comment Diff Path Review Platelet Estimate RBC Morphology Anisocytosis Macrocytosis Specimen Type VIOLET Sample Site OTHER pH Bicarbonate Actual POC Total CO2 Base Excess O2 Saturation ABG pCO2 ABG pO2 Rod Test VBG pH 7.21 L VBG pO2 44 H VBG O2 Sat (Calc) 71 H VBG O2 Content Pending VBG Base Excess -19 L POC Mix VBG pCO2 Pt Tmp 23.1 L O2 Delivery Device Room Air Blood Gas Notified Whom [facility] Blood Gas Notified Time 404 Sodium 136 Potassium 4.2 Chloride 103 Carbon Dioxide 11.0 L Anion Gap 22 H BUN 68 H Creatinine 2.03 H Estim Creat Clear Calc 31.20 Est GFR (MDRD) Af Amer 42 L Est GFR (MDRD) Non-Af 35 L BUN/Creatinine Ratio 33.5 H Glucose 659 H* Pending Hemoglobin A1c Lactic Acid Calcium 8.3 L Phosphorus 1.2 L Magnesium 3.0 H Total Bilirubin 0.80 AST 16 ALT 30 Alkaline Phosphatase 131 H Troponin I Total Protein 7.0 Albumin 3.4 Globulin 3.6 Albumin/Globulin Ratio 0.9 Triglycerides 135 Cholesterol 163 LDL Cholesterol 95 VLDL Cholesterol 27 HDL Cholesterol 41 Lipase Urine Color Urine Clarity Urine pH Ur Specific [place] Urine Protein Urine Glucose (UA) Urine Ketones Urine Occult Blood Urine Nitrite Urine Bilirubin Urine Urobilinogen Ur Leukocyte Esterase Urine RBC Urine WBC Ur Squamous Epith Cells Urine Bacteria Urine Mucus Ethyl Alcohol Acetone Level COVID-19 (MISSY) POC Glucose Clinical Impression(s) from Imaging Studies Chest X-Ray 07/13/19 21:57 IMPRESSION: No acute cardiopulmonary disease perceived. at 2212 Reported and signed by: Shayne Bennett MD Electronically Signed: Shayne Bennett MD at 22:11 EDT Tel , Service support , Current Medications Acetaminophen (Tylenol) 650 mg PO Q6H PRN PRN PRN Reason: Pain Score 1-10/Temp > 100.7 F Al Hydroxide/Mg Hydroxide (Mylanta Ii) 30 ml PO Q6H PRN PRN PRN Reason: Gastric Burning Albuterol Sulfate (Ventolin Aerosols) 2.5 mg INHALATION Q2H PRN PRN PRN Reason: Dyspnea, wheezing Dextrose (D50w Syringe) 0 gm IV X1 PRN; Protocol PRN Reason: Hypoglycemia Glucagon () 1 mg IM .X1 PRN PRN Reason: Hypoglycemia Guaifenesin (Robitussin) 10 ml PO Q4H PRN PRN PRN Reason: COUGH Heparin Sodium (Porcine) (Heparin Na) 5,000 unit SC Q12 NORAH Hydralazine HCl (Apresoline Iv) 10 mg IV Q4H PRN PRN PRN Reason: SBP > 160 Insulin Human Lispro 100 unit/ (Sodium Chloride) 100 mls @ 7.711 mls/hr IV .[id number] NORAH; Protocol Last Titration: 07/14/19 05:35 Dose: 0.02 units/kg/hr, 1.4 mls/hr Documented by: Pantoprazole Sodium 40 mg/ (Sodium Chloride) 110 mls @ 330 mls/hr IV Q12 [facility] Last Infusion: 07/14/19 00:53 Dose: Infused Documented by: Sodium Chloride () 250 mls @ 15 mls/hr IV .[id number] PRN PRN Reason: Saline Flush Last Infusion: 07/14/19 05:33 Dose: 0 mls/hr Documented by: Potassium Chloride/Sodium Chloride (Kcl 20meq In 0.45% Ns 1000ml) 1,000 mls @ 150 mls/hr IV .[id number] [facility] Last Infusion: 07/14/19 06:07 Dose: 150 mls/hr Documented by: Sodium Phosphate 21 mm/ Sodium (Chloride) 257 mls @ 41.7 mls/hr IV X1 ONE Stop: 07/14/19 10:44 Last Admin: 07/14/19 05:33 Dose: 41.7 mls/hr Documented by: Magnesium Hydroxide (Milk Of Magnesia) 30 ml PO DAILY PRN PRN PRN Reason: Constipation Melatonin (Melatonin) 3 mg PO QHS PRN PRN PRN Reason: INSOMNIA Morphine Sulfate () 2 mg IV Q3H PRN PRN PRN Reason: Pain Score 6-10/10 Nitroglycerin (Nitrostat) 0.4 mg SUBLINGUAL Q5M PRN PRN Reason: CARDIAC/CHEST PAIN Ondansetron HCl (Zofran) 4 mg IV Q8H PRN PRN PRN Reason: NAUSEA/VOMITING Oxycodone HCl (Oxyir) 5 mg PO Q4H PRN PRN PRN Reason: Pain Score 4-5/10 Prochlorperazine Edisylate (Compazine Iv) 5 mg IV Q4H PRN PRN PRN Reason: Breakthrough Nausea/Vomiting Psyllium Hydrophilic Mucilloid (Metamucil) 1 packet PO DAILY PRN PRN PRN Reason: Constipation Senna/Docusate Sodium (Senokot-S, Kathie-Colace) 2 tablet PO BID PRN PRN PRN Reason: Constipation Sodium Chloride () 10 - 40 ml IV UD PRN PRN Reason: SALINE FLUSH Last Admin: 07/14/19 05:35 Dose: 40 ml Documented by: Throat Lozenges (Cepacol Sore Throat Lozenge) 1 lozenge MUCOUS MEM Q2H PRN PRN PRN Reason: SORE THROAT Assessment/Plan Active and Suspected Problems DKA (diabetic ketoacidoses) (Acute) Lactic acidosis (Acute) GILBERTO (acute kidney injury) (Acute) Elevated BP without diagnosis of hypertension (Acute) Diabetic ketoacidosis (Acute) Leukocytosis (Acute) Lactic acidosis due to diabetes mellitus (Acute) Acute kidney injury (Acute) RECOMMENDATIONS: 1. Continue DKA management per protocol with supplemental IV fluid hydration and continuous insulin infusion. 2. Once anion gap has been closed x2, the patient can be transitioned to basal and sliding scale insulin coverage. 3. Recheck lipase level. 4. Abdominal ultrasound is pending. 5. Diabetic education to be provided. 6. Continue appropriate DVT and GI prophylaxis. 7. Monitor for signs of alcohol withdrawal. IMPRESSIONS: 1. Diabetic ketoacidosis The patient reported that he was never previously diagnosed with diabetes. He has a hemoglobin A1c greater than 11. The patient will be managed per protocol with supplemental IV fluids and continuous insulin infusion until anion gap has been closed x2. Following this, the patient will be transitioned to basal insulin and sliding scale coverage. The patient to remain n.p.o. for now. The patient will require diabetic education and outpatient follow-up. 2. Acute pancreatitis Unclear precipitating etiology. The patient does have a longstanding history of alcohol dependency. Although there was initial report that he had been abstinent from alcohol for the last 3 months, he did admit to me that he had consumed alcohol on several occasions over the course of the last week. Therefore, alcohol may be a contributing factor. Right upper quadrant ultrasound is also pending to assess for any gallstones. Plan to continue conservative management with bowel rest and supplemental IV fluids. 3. Acute kidney injury Likely prerenal in etiology. The patient's creatinine and urine output is improving with supplemental IV fluid hydration. Continue to monitor urine output accordingly. No current indication for renal replacement therapy. 4. History of alcohol dependency Continue to monitor for any signs of alcohol withdrawal. This note was generated with T[employer]ation software. It may contain incorrect words, spelling, and punctuation that were not noted in checking the note before signing. Inpatient E&M: 09617 Init Hosp L3
[2019-07-14 06:48] LABS: Glucose 600 mg/dL (74-106)
[2019-07-14 06:48] LABS: VBG Oxygen Content 10 mmol/L (23-33)
--- NOTE | 2019-07-14 07:12 | PN_ITS ---
Patient Problems: Active and Suspected Problems DKA (diabetic ketoacidoses) (Acute) Lactic acidosis (Acute) GILBERTO (acute kidney injury) (Acute) Elevated BP without diagnosis of hypertension (Acute) Diabetic ketoacidosis (Acute) Leukocytosis (Acute) Lactic acidosis due to diabetes mellitus (Acute) Acute kidney injury (Acute) Reason for Visit: DKA, acute pancreatitis Subjective: Patient is a 73-year-old gentleman who presented with 1 week history of progressive generalized weakness shortness of breath nausea and vomiting. Patient assessment on admission was consistent with diabetic ketoacidosis as well as acute pancreatitis. Patient apparently has history of chronic alcohol use. Admitted to the intensive care unit for subsequent management Objective: GENERAL: cooperative HEENT: Atraumatic; EYES; Anicteric, Normal Conjunctiva NECK; supple, normal thyroid, RESPIRATORY: Diminished to auscultation CARDIOVASCULAR: Regular S1 S2, GI: soft, with epigastric tenderness : No Renal angle tenderness; EXTREMITIES: No edema, no clubbing, MUSCULOSKELETAL: no muscle waisting NEURO: Awake; no lateralizing signs. SKIN: No Rash PSYCH; Flat affect Vitals/I&O's: Vital Signs Temp Pulse Resp BP Pulse Ox 98.9 F 98 19 H 121/75 H 97 07/14/19 04:00 07/14/19 06:00 07/14/19 06:00 07/14/19 06:00 07/14/19 06:00 Oxygen Delivery Method Room Air Weight: 76.1 kg Body Mass Index (BMI) 25.7 Intake and Output for Last 24 Hours 07/12/19 07/13/19 07/14/19 23:59 23:59 23:59 Intake Total 951.44 / 951.44 Output Total 1600 / 1600 Balance -648.56 / -648.56 Laboratory Results 07/13/19 21:30: WBC 24.7 H, RBC 5.42, Hgb 17.1 H, Hct 54.5 H, MCV 100.6 H, MCH 31.5, MCHC 31.4 L, RDW Std Deviation 46.9 H, RDW Coeff of Oscar 12.6, Plt Count 283, MPV 12.5 H, Immature Gran % (Auto) 1.400 H, Neut % (Auto) 90.8 H, Lymph % (Auto) 2.4 L, Johnson % (Auto) 5.2, Eos % (Auto) 0.0, Baso % (Auto) 0.2, Absolute Neuts (auto) 22.4 H, Absolute Lymphs (auto) 0.58 L, Nucleated RBC % 0, Differential Comment SEE COMMENTS, Diff Path Review May foll, Platelet Estimate ADEQUATE, RBC Morphology N CHROM, Anisocytosis RARE, Macrocytosis RARE 07/13/19 21:30: Sodium 124 L, Potassium 4.5, Chloride 81 L, Carbon Dioxide 8.0 L*, Anion Gap 35 H, BUN 66 H, Creatinine 2.95 H, Estim Creat Clear Calc 21.47, Est GFR (MDRD) Af Amer 27 L, Est GFR (MDRD) Non-Af 22 L, BUN/Creatinine Ratio 22.4 H, Glucose 1345 H*, Calcium 9.4, Total Bilirubin 1.10 H, AST 14 L, ALT 36, Alkaline Phosphatase 144 H, Total Protein 8.3 H, Albumin 4.2, Globulin 4.1, Albumin/Globulin Ratio 1.0 07/13/19 21:30: Ethyl Alcohol 4.0 07/13/19 21:30: Lactic Acid 4.3 H* 07/13/19 21:30: Acetone Level LARGE H 07/13/19 21:30: Phosphorus 6.6 H, Magnesium 3.4 H, Troponin I 0.017, Lipase 24081 H 07/13/19 21:30: Hemoglobin A1c 11.0 H 07/13/19 21:50: Urine Color Yellow, Urine Clarity Clear, Urine pH 5.0, Ur Specific [place] 1.015, Urine Protein 15 H, Urine Glucose (UA) 1000 H, Urine Ketones 150 H, Urine Occult Blood 25 H, Urine Nitrite Negative, Urine Bilirubin Negative, Urine Urobilinogen Normal, Ur Leukocyte Esterase Negative, Urine RBC 0 SEEN, Urine WBC 0 SEEN, Ur Squamous Epith Cells 0 SEEN, Urine Bacteria 0 SEEN, Urine Mucus 0 SEEN 07/13/19 21:58: Specimen Type ART, Sample Site R RADIAL, pH 7.21 L, Bicarbonate Actual 4.5 L, POC Total CO2 < 5, Base Excess -23 L, O2 Saturation 98, ABG pCO2 11.2 L*, ABG pO2 125 H, Rod Test POS, O2 Delivery Device Room Air, Blood Gas Notified Whom ED , Blood Gas Notified Time 215707/13/19 22:29: POC Glucose > 500 H* 07/13/19 22:57: POC Glucose > 500 H* 07/13/19 23:30: POC Glucose > 500 H* 07/14/19 00:19: POC Glucose > 500 H* 07/14/19 00:20: Sodium 134 L, Potassium 3.6, Chloride 98, Carbon Dioxide 9.0 L*, Anion Gap 27 H, BUN 66 H, Creatinine 2.25 H, Estim Creat Clear Calc 28.15, Est GFR (MDRD) Af Amer 37 L, Est GFR (MDRD) Non-Af 31 L, BUN/Creatinine Ratio 29.3 H , Glucose 974 H*, Calcium 8.2 L 07/14/19 00:20: Lactic Acid 2.6 H* 07/14/19 01:15: COVID-19 (MISSY) Not Detected 07/14/19 02:05: Glucose 709 H* 07/14/19 03:55: WBC 18.1 H, RBC 4.94, Hgb 15.4, Hct 44.5, MCV 90.1 D, MCH 31.2, MCHC 34.6 D, RDW Std Deviation 39.3, RDW Coeff of Oscar 11.9, Plt Count 210, MPV 12.0, Immature Gran % (Auto) 0.700, Neut % (Auto) 85.5 H, Lymph % (Auto) 5.5 L, Johnson % (Auto) 8.2, Eos % (Auto) 0.0, Baso % (Auto) 0.1, Absolute Neuts (auto) 15.4 H, Absolute Lymphs (auto) 0.99, Nucleated RBC % 0, Differential Comment SCANNED 07/14/19 03:55: Sodium 136, Potassium 4.2, Chloride 103, Carbon Dioxide 11.0 L, Anion Gap 22 H, BUN 68 H, Creatinine 2.03 H, Estim Creat Clear Calc 31.20, Est GFR (MDRD) Af Amer 42 L, Est GFR (MDRD) Non-Af 35 L, BUN/Creatinine Ratio 33.5 H , Glucose 659 H*, Calcium 8.3 L, Phosphorus 1.2 L, Magnesium 3.0 H, Total Bilirubin 0.80, AST 16, ALT 30, Alkaline Phosphatase 131 H, Total Protein 7.0, Albumin 3.4, Globulin 3.6, Albumin/Globulin Ratio 0.9, Triglycerides 135, Cholesterol 163, LDL Cholesterol 95, VLDL Cholesterol 27, HDL Cholesterol 41 07/14/19 03:58: Specimen Type VIOLET, Sample Site OTHER, VBG pH 7.21 L, VBG pO2 44 H, VBG O2 Sat (Calc) 71 H, VBG O2 Content 10 L, VBG Base Excess -19 L, POC Mix VBG pCO2 Pt Tmp 23.1 L, O2 Delivery Device Room Air, Blood Gas Notified Whom HOSP , Blood Gas Notified Time 404 07/14/19 05:35: Glucose 600 H* Current Medications Acetaminophen (Tylenol) 650 mg PO Q6H PRN PRN PRN Reason: Pain Score 1-10/Temp > 100.7 F Al Hydroxide/Mg Hydroxide (Mylanta Ii) 30 ml PO Q6H PRN PRN PRN Reason: Gastric Burning Albuterol Sulfate (Ventolin Aerosols) 2.5 mg INHALATION Q2H PRN PRN PRN Reason: Dyspnea, wheezing Dextrose (D50w Syringe) 0 gm IV X1 PRN; Protocol PRN Reason: Hypoglycemia Glucagon () 1 mg IM .X1 PRN PRN Reason: Hypoglycemia Guaifenesin (Robitussin) 10 ml PO Q4H PRN PRN PRN Reason: COUGH Heparin Sodium (Porcine) (Heparin Na) 5,000 unit SC Q12 NORAH Hydralazine HCl (Apresoline Iv) 10 mg IV Q4H PRN PRN PRN Reason: SBP > 160 Insulin Human Lispro 100 unit/ (Sodium Chloride) 100 mls @ 7.711 mls/hr IV .[id number] NORAH; Protocol Last Titration: 07/14/19 06:50 Dose: 0.02 units/kg/hr, 1.4 mls/hr Documented by: Pantoprazole Sodium 40 mg/ (Sodium Chloride) 110 mls @ 330 mls/hr IV Q12 NORAH Last Infusion: 07/14/19 00:53 Dose: Infused Documented by: Sodium Chloride () 250 mls @ 15 mls/hr IV .[id number] PRN PRN Reason: Saline Flush Last Infusion: 07/14/19 05:33 Dose: 0 mls/hr Documented by: Potassium Chloride/Sodium Chloride (Kcl 20meq In 0.45% Ns 1000ml) 1,000 mls @ 150 mls/hr IV .[id number] NORAH Last Infusion: 07/14/19 06:07 Dose: 150 mls/hr Documented by: Sodium Phosphate 21 mm/ Sodium (Chloride) 257 mls @ 41.7 mls/hr IV X1 ONE Stop: 07/14/19 10:44 Last Admin: 07/14/19 05:33 Dose: 41.7 mls/hr Documented by: Magnesium Hydroxide (Milk Of Magnesia) 30 ml PO DAILY PRN PRN PRN Reason: Constipation Melatonin (Melatonin) 3 mg PO QHS PRN PRN PRN Reason: INSOMNIA Morphine Sulfate () 2 mg IV Q3H PRN PRN PRN Reason: Pain Score 6-10/10 Nitroglycerin (Nitrostat) 0.4 mg SUBLINGUAL Q5M PRN PRN Reason: CARDIAC/CHEST PAIN Ondansetron HCl (Zofran) 4 mg IV Q8H PRN PRN PRN Reason: NAUSEA/VOMITING Oxycodone HCl (Oxyir) 5 mg PO Q4H PRN PRN PRN Reason: Pain Score 4-5/10 Prochlorperazine Edisylate (Compazine Iv) 5 mg IV Q4H PRN PRN PRN Reason: Breakthrough Nausea/Vomiting Psyllium Hydrophilic Mucilloid (Metamucil) 1 packet PO DAILY PRN PRN PRN Reason: Constipation Senna/Docusate Sodium (Senokot-S, Kathie-Colace) 2 tablet PO BID PRN PRN PRN Reason: Constipation Sodium Chloride () 10 - 40 ml IV UD PRN PRN Reason: SALINE FLUSH Last Admin: 07/14/19 05:35 Dose: 40 ml Documented by: Throat Lozenges (Cepacol Sore Throat Lozenge) 1 lozenge MUCOUS MEM Q2H PRN PRN PRN Reason: SORE THROAT STROKE Vital Signs/Narrative: Vital Signs Temp Pulse Resp BP BP Pulse Ox 07/14/19 06:00 98 19 H 121/75 H 97 07/14/19 05:00 103 H 20 H 117/69 98 07/14/19 04:00 98.9 F 100 21 H 126/75 H 98 Medical Necessity - Tobacco Use Smoking Status: Never smoker Tobacco Use: Non-smoker Assessment/Plan All Active Problems DKA (diabetic ketoacidoses) (Acute) Lactic acidosis (Acute) GILBERTO (acute kidney injury) (Acute) Elevated BP without diagnosis of hypertension (Acute) Diabetic ketoacidosis (Acute) Leukocytosis (Acute) Lactic acidosis due to diabetes mellitus (Acute) Acute kidney injury (Acute) Patient is a 73-year-old gentleman who presented with 1 week history of progressive generalized weakness shortness of breath nausea and vomiting. Patient assessment on admission was consistent with diabetic ketoacidosis as well as acute pancreatitis. Patient apparently has history of chronic alcohol use. Admitted to the intensive care unit for subsequent management 1. Diabetic ketoacidosis ?New onset diabetic admitted to the intensive care unit. Managed with aggressive IV fluids and correction of electrolytes as well as use of insulin. Patient still remains in DKA 2. Acute kidney injury ?possibly pressure stated by above patient being managed with IV fluids with monitoring of electrolytes 3. Acute pancreatitis -And has history of alcohol use however denies any use of alcohol for the past 3 months. Patient being managed conservatively with bowel rest pain meds as well as use of PPI. He also had right upper quadrant ultrasound performed to rule out gallstones 4. Leukocytosis with relative lymphopenia -COVID ruled out 5. Elevated d-dimer ?Ordered venous duplex to rule out DVT. Do plan to obtain CT of the chest once patient kidney function improved patient was covered with therapeutic Lovenox whilst waiting for the kidney function to return to baseline 6. Lactic acidosis ?Sepsis ruled out patient lactic acidosis attributed to patient's DKA 7. DVT prophylaxis ?Patient on Lovenox Inpatient E&M: [id number] [facility] L3
[2019-07-14 08:30] LABS: Fibrinogen 258 mg/dl (203-444)
[2019-07-14 08:31] LABS: Anion Gap 18 (5-15); BUN 64 mg/dL (7-18); CPK Total, Creatine Kinase 123 U/L (39-308); Calcium,Total 8.2 mg/dL (8.5-10.1); Chloride 107 mmol/L (98-107); Creatinine, Serum 1.83 mg/dL (0.70-1.30); EST Glomerular Filtration Rate 39 mL/min (>60); Est Glom Filt Rate - Afr Amer 47 mL/min (>60); Estimated Creatinine Clearance 34.62 ml/min; Ferritin 533 ng/mL (26-388); Glucose 553 mg/dL (74-106); LDH 165 U/L (87-241); Potassium 4.5 mmol/L (3.5-5.1); Sodium Level 140 mmol/L (136-145)
[2019-07-14 08:56] LABS: D-Dimer Quantitative (DVT/PE) 1.45 FEU/ug/m (0.27-0.49)
[2019-07-14] MEDS: Heparin Injection (Vial) 5,000 UNIT/ML VIAL 5000 UNIT SC (09:28)
--- NOTE | 2019-07-14 09:33 | VDLE_ITS ---
Reason For Study: Elevated D-dimer RIGHT LEFT GSV is normal. GSV is normal. CFV is compressible, spontaneous, phasic, CFV is compressible, spontaneous, phasic, competent and demonstrates normal competent, and demonstrates normal augmentation. augmentation. FV is compressible, spontaneous, phasic, FV is compressible, spontaneous, phasic, competent and demonstrates normal competent and demonstrates normal augmentation. augmentation. POP V is compressible, spontaneous, phasic, POP V is compressible, spontaneous, phasic, competent and demonstrates normal competent and demonstrates normal augmentation. augmentation. T/P Trunk is compressible. T/P Trunk is compressible. PTV is compressible. PTV is compressible. RT PerV is compressible. LT PerV is compressible. Procedure Exam performed portable in patient room. A preliminary report was called and/or faxed to ICU. Interpretation Summary No evidence for acute deep venous thrombosis bilateral lower extremities with patent and compressible bilateral great saphenous veins. Ordering Physician: Kirby Leonard Performed By: Suzy Delatorre RVT
--- NOTE | 2019-07-14 09:45 | CASEMGMT ---
FIOR HERNANDEZ Face to Face with patient for initial transition planning/care coordination assessment. RN CM introduced self and role at [facility]. Patient lying in bed, alert and oriented. Patient does not speak Frisian, granddaughter at bedside to interpret. Patient willing to participate in assessment and is able to answer all questions appropriately. Care providers, pharmacy, and demographics verified. Patient wishes to discharge home, denies need for home health at this time. Patient and granddaughter state they have no further needs or concerns at this time. CM to follow for discharge planning needs that may arise. PCP: No PCP, list provided Specialists: None, will need to get established with ear flap binder Preferred Pharmacy: [facility] retail Insurance: [facility] Prescription Benefit: none Living Will/HPOA: none LNOK: daughter, granddaughter Living Arrangements: Patient lives with daughter and granddaughter in 2 story home with bed and bath on main level of house. 2 steps to enter the home. Patient independent at home. Transportation: daughter, granddaughter DME/HHC: Patient has cane at home. Denies any HHC or SNF. Disposition Plan: Patient to discharge home with family support and follow-up plans in place. Suzy SANDERSON, RN, CM
[2019-07-14 10:36] LABS: Bedside Glucose 464 mg/dL (70-110)
[2019-07-14 10:37] LABS: Procalcitonin 0.87 ng/mL (0.00-0.09)
[2019-07-14 10:58] LABS: Lipase 5068 U/L (73-393)
[2019-07-14 12:20] LABS: Bedside Glucose 421 mg/dL (70-110)
[2019-07-14 12:29] LABS: Pathologist Review Reviewed
[2019-07-14 12:49] LABS: Anion Gap 19 (5-15); BUN 57 mg/dL (7-18); BUN/Creat Ratio 32.9 RATIO (10-20); Calcium,Total 8.4 mg/dL (8.5-10.1); Chloride 112 mmol/L (98-107); Creatinine, Serum 1.73 mg/dL (0.70-1.30); EST Glomerular Filtration Rate 42 mL/min (>60); Est Glom Filt Rate - Afr Amer 50 mL/min (>60); Estimated Creatinine Clearance 36.62 ml/min; Glucose 458 mg/dL (74-106); Potassium 3.9 mmol/L (3.5-5.1); Sodium Level 146 mmol/L (136-145)
[2019-07-14 14:21] LABS: Bedside Glucose 411 mg/dL (70-110)
[2019-07-14 16:16] LABS: Bedside Glucose 383 mg/dL (70-110)
[2019-07-14 17:56] LABS: Anion Gap 17 (5-15); BUN 46 mg/dL (7-18); BUN/Creat Ratio 32.4 RATIO (10-20); Calcium,Total 7.9 mg/dL (8.5-10.1); Chloride 119 mmol/L (98-107); Creatinine, Serum 1.42 mg/dL (0.70-1.30); EST Glomerular Filtration Rate 52 mL/min (>60); Est Glom Filt Rate - Afr Amer 63 mL/min (>60); Estimated Creatinine Clearance 44.61 ml/min; Glucose 385 mg/dL (74-106); Potassium 3.8 mmol/L (3.5-5.1); Sodium Level 149 mmol/L (136-145)
[2019-07-14 18:35] LABS: Bedside Glucose 310 mg/dL (70-110)
[2019-07-14 20:06] LABS: Bedside Glucose 318 mg/dL (70-110)
[2019-07-14] MEDS: Enoxaparin 80 MG/0.8 ML Syringe 70 MG SC (21:06)
[2019-07-14 21:11] LABS: Bedside Glucose 338 mg/dL (70-110)
[2019-07-14 22:25] LABS: Bedside Glucose 268 mg/dL (70-110)
[2019-07-14 22:55] LABS: Anion Gap 11 (5-15); BUN 38 mg/dL (7-18); BUN/Creat Ratio 27.9 RATIO (10-20); Calcium,Total 7.8 mg/dL (8.5-10.1); Chloride 119 mmol/L (98-107); Creatinine, Serum 1.36 mg/dL (0.70-1.30); EST Glomerular Filtration Rate 55 mL/min (>60); Est Glom Filt Rate - Afr Amer 66 mL/min (>60); Estimated Creatinine Clearance 46.58 ml/min; Glucose 298 mg/dL (74-106); Potassium 3.6 mmol/L (3.5-5.1); Sodium Level 150 mmol/L (136-145)
[2019-07-14 23:11] LABS: Bedside Glucose 308 mg/dL (70-110)
[2019-07-14] MEDS: Potassium Chloride 10mEq/100mL 10 MEQ/100 ML IV.SOLN. 100 MEQ IV BOLUS (23:39)
[2019-07-15] VITALS (17 sets, daily range): BP systolic 104–146; BP diastolic 65–83; PULSE 59–86; RESP 11–18; TEMP 36.6–36.8; O2SAT 98–100
[2019-07-15 00:06] LABS: Bedside Glucose 271 mg/dL (70-110)
[2019-07-15] MEDS: Potassium Chloride 10mEq/100mL 10 MEQ/100 ML IV.SOLN. 100 MEQ IV BOLUS ×3 (00:46→03:07)
[2019-07-15 01:06] LABS: Bedside Glucose 257 mg/dL (70-110)
[2019-07-15 02:06] LABS: Bedside Glucose 235 mg/dL (70-110)
[2019-07-15 02:09] LABS: Absolute Lymphocyte Count 1.53 X10^3/uL (0.83-4.51); Absolute Neutrophil Count 11.7 X10^3/uL (2.0-7.7); Basophil# 0.02 X10^3/uL; Basophil% 0.1 % (0-1); Hematocrit 38.4 % (40-54); Hemoglobin 13.4 g/dL (13.0-16.5); Lymphocyte # 1.53 X10^3/ul (4.0); Lymphocyte % 10.7 % (19-41); Mean Corp Hgb Conc 34.9 g/dL (32-36); Mean Corpuscular Hgb 31.7 pg (27.0-32.0); Mean Corpuscular Volume 90.8 fL (80-94); Mean Platelet Vol. 11.7 fl (6.2-12.0); Monocyte# 1.02 X10^3/uL; Monocyte% 7.1 % (0-10); NRBC Flagged by Analyzer 0 % (0-5); Neutrophil # 11.68 X10^3/uL (2.7-7.7); Neutrophil % 81.7 % (47-70); Platelet Count 190 K/mm3 (150-450); RBC Distribution Width CV 12.5 % (11.6-14.6); RBC Distribution Width SD 41.1 fl (35.1-43.9); Red Blood Count 4.23 M/mm3 (4.6-6.2); White Blood Count 14.3 K/mm3 (4.4-11.0)
[2019-07-15 02:30] LABS: ALB/GLOB Ratio 1.1 RATIO (0.9-2.4); AST(SGOT) 17 U/L (15-37); Alanine Aminotransfer ALT/SGPT 23 U/L (16-61); Albumin, Serum 3.1 g/dL (3.2-5.0); Alkaline Phosphatase 89 U/L (45-117); Anion Gap 11 (5-15); BUN 34 mg/dL (7-18); BUN/Creat Ratio 25.2 RATIO (10-20); Calcium,Total 7.8 mg/dL (8.5-10.1); Chloride 120 mmol/L (98-107); Creatinine, Serum 1.35 mg/dL (0.70-1.30); EST Glomerular Filtration Rate 55 mL/min (>60); Est Glom Filt Rate - Afr Amer 67 mL/min (>60); Estimated Creatinine Clearance 46.92 ml/min; Globulin 2.9 g/dL (2.2-4.2); Glucose 241 mg/dL (74-106); Potassium 3.8 mmol/L (3.5-5.1); Sodium Level 151 mmol/L (136-145)
[2019-07-15] MEDS: Dext 5%-0.45% NS 1,000 ML 150 ML IV (02:45)
[2019-07-15 04:21] LABS: Bedside Glucose 214 mg/dL (70-110)
[2019-07-15 06:11] LABS: Bedside Glucose 216 mg/dL (70-110)
[2019-07-15 06:57] LABS: Anion Gap 9 (5-15); BUN 28 mg/dL (7-18); BUN/Creat Ratio 22.8 RATIO (10-20); Calcium,Total 7.7 mg/dL (8.5-10.1); Chloride 118 mmol/L (98-107); Creatinine, Serum 1.23 mg/dL (0.70-1.30); EST Glomerular Filtration Rate 62 mL/min (>60); Est Glom Filt Rate - Afr Amer 74 mL/min (>60); Glucose 225 mg/dL (74-106); Lipase 1128 U/L (73-393); Potassium 3.5 mmol/L (3.5-5.1); Sodium Level 148 mmol/L (136-145)
--- NOTE | 2019-07-15 06:59 | PN_ITS ---
Subjective: The patient was seen and examined at the bedside this morning. Events from the last 24 hours have been reviewed. The patient is currently afebrile, hemodynamically stable and maintaining appropriate oxygen saturations on room air. Creatinine is improved this morning to 1.23. Blood sugars are under much better control. Lipase has improved significantly to 1128. The patient denies the presence of abdominal pain, nausea or vomiting. Objective: The patient's most recent lab work, culture data and imaging studies have all been personally reviewed. Abdominal ultrasound was largely unremarkable. There was no evidence of gallstones. Lower extremity Doppler study was negative for the presence of DVTs. General: Alert, No apparent distress HEENT: Atraumatic, Normocephalic Oral: Moist Mucosa, No Gingival or Mucosal Lesions/ Ulcerations Neck: Supple, No Nodes, Trachea Midline Lungs: Diminished Cardiovascular: Regular rate, Regular Rhythm, Normal S1, Normal S2 Abdomen: Bowel Sounds Present, Soft, Non Tender Extremities: No clubbing, No cyanosis, No edema Skin: No breakdown Musculoskeletal: No Tenderness to Palpation of Joints or Extremities, No Muscle Wasting Lymphatic: No Cervical, Supraclavicular, or Inguinal Adenopathy Neurological: Neuro grossly intact Psych/Mental Status: Normal Affect, Appropriate Vital Signs Temp Pulse Resp BP Pulse Ox 97.9 F 67 11 L 125/69 H 99 07/15/19 04:00 07/15/19 06:00 07/15/19 06:00 07/15/19 06:00 07/15/19 06:00 Oxygen Delivery Method Room Air Weight: 166 lb 10.711 oz Body Mass Index (BMI) 25.7 Finger Stick Blood Glucose 216 Intake and Output for Last 24 Hours 07/13/19 07/14/19 07/15/19 23:59 23:59 23:59 Intake Total 4099.43 / 4102.32 1040.96 / 1040.96 Output Total 4850 / 4850 500 / 500 Balance -750.57 / -747.68 540.96 / 540.96 Labs (Last 48 Hours) 07/13/19 07/13/19 07/13/19 21:30 21:30 21:30 WBC 24.7 H RBC 5.42 Hgb 17.1 H Hct 54.5 H MCV 100.6 H MCH 31.5 MCHC 31.4 L RDW Std Deviation 46.9 H RDW Coeff of Oscar 12.6 Plt Count 283 MPV 12.5 H Immature Gran % (Auto) 1.400 H Neut % (Auto) 90.8 H Lymph % (Auto) 2.4 L [place] % (Auto) 5.2 Eos % (Auto) 0.0 Baso % (Auto) 0.2 Absolute Neuts (auto) 22.4 H Absolute Lymphs (auto) 0.58 L Nucleated RBC % 0 Differential Comment SEE COMMENTS Diff Path Review Reviewed Platelet Estimate ADEQUATE RBC Morphology N CHROM Anisocytosis RARE Macrocytosis RARE Fibrinogen D-Dimer Quant (PE/DVT) Specimen Type Sample Site pH Bicarbonate Actual POC Total CO2 Base Excess O2 Saturation ABG pCO2 ABG pO2 Rod Test VBG pH VBG pO2 VBG O2 Sat (Calc) VBG O2 Content VBG Base Excess POC Mix VBG pCO2 Pt Tmp O2 Delivery Device Blood Gas Notified Whom Blood Gas Notified Time Sodium 124 L Potassium 4.5 Chloride 81 L Carbon Dioxide 8.0 L* Anion Gap 35 H BUN 66 H Creatinine 2.95 H Estim Creat Clear Calc 21.47 Est GFR (MDRD) Af Amer 27 L Est GFR (MDRD) Non-Af 22 L BUN/Creatinine Ratio 22.4 H Glucose 1345 H* Hemoglobin A1c Lactic Acid Calcium 9.4 Phosphorus Magnesium Ferritin Total Bilirubin 1.10 H AST 14 L ALT 36 Alkaline Phosphatase 144 H Lactate Dehydrogenase Total Creatine Kinase Troponin I C-React Prot Ext Range Total Protein 8.3 H Albumin 4.2 Globulin 4.1 Albumin/Globulin Ratio 1.0 Triglycerides Cholesterol LDL Cholesterol VLDL Cholesterol HDL Cholesterol Lipase Procalcitonin Urine Color Urine Clarity Urine pH Ur Specific [place] Urine Protein Urine Glucose (UA) Urine Ketones Urine Occult Blood Urine Nitrite Urine Bilirubin Urine Urobilinogen Ur Leukocyte Esterase Urine RBC Urine WBC Ur Squamous Epith Cells Urine Bacteria Urine Mucus Ethyl Alcohol 4.0 Acetone Level COVID-19 (MISSY) POC Glucose 07/13/19 07/13/19 07/13/19 21:30 21:30 21:30 WBC RBC Hgb Hct MCV MCH MCHC RDW Std Deviation RDW Coeff of Oscar Plt Count MPV Immature Gran % (Auto) Neut % (Auto) Lymph % (Auto) [place] % (Auto) Eos % (Auto) Baso % (Auto) Absolute Neuts (auto) Absolute Lymphs (auto) Nucleated RBC % Differential Comment Diff Path Review Platelet Estimate RBC Morphology Anisocytosis Macrocytosis Fibrinogen D-Dimer Quant (PE/DVT) Specimen Type Sample Site pH Bicarbonate Actual POC Total CO2 Base Excess O2 Saturation ABG pCO2 ABG pO2 Rod Test VBG pH VBG pO2 VBG O2 Sat (Calc) VBG O2 Content VBG Base Excess POC Mix VBG pCO2 Pt Tmp O2 Delivery Device Blood Gas Notified Whom Blood Gas Notified Time Sodium Potassium Chloride Carbon Dioxide Anion Gap BUN Creatinine Estim Creat Clear Calc Est GFR (MDRD) Af Amer Est GFR (MDRD) Non-Af BUN/Creatinine Ratio Glucose Hemoglobin A1c Lactic Acid 4.3 H* Calcium Phosphorus 6.6 H Magnesium 3.4 H Ferritin Total Bilirubin AST ALT Alkaline Phosphatase Lactate Dehydrogenase Total Creatine Kinase Troponin I 0.017 C-React Prot Ext Range Total Protein Albumin Globulin Albumin/Globulin Ratio Triglycerides Cholesterol LDL Cholesterol VLDL Cholesterol HDL Cholesterol Lipase 75620 H Procalcitonin Urine Color Urine Clarity Urine pH Ur Specific [place] Urine Protein Urine Glucose (UA) Urine Ketones Urine Occult Blood Urine Nitrite Urine Bilirubin Urine Urobilinogen Ur Leukocyte Esterase Urine RBC Urine WBC Ur Squamous Epith Cells Urine Bacteria Urine Mucus Ethyl Alcohol Acetone Level LARGE H COVID-19 (MISSY) POC Glucose 07/13/19 07/13/19 07/13/19 21:30 21:50 21:58 WBC RBC Hgb Hct MCV MCH MCHC RDW Std Deviation RDW Coeff of Oscar Plt Count MPV Immature Gran % (Auto) Neut % (Auto) Lymph % (Auto) [place] % (Auto) Eos % (Auto) Baso % (Auto) Absolute Neuts (auto) Absolute Lymphs (auto) Nucleated RBC % Differential Comment Diff Path Review Platelet Estimate RBC Morphology Anisocytosis Macrocytosis Fibrinogen D-Dimer Quant (PE/DVT) Specimen Type ART Sample Site R RADIAL pH 7.21 L Bicarbonate Actual 4.5 L POC Total CO2 < 5 Base Excess -23 L O2 Saturation 98 ABG pCO2 11.2 L* ABG pO2 125 H Rod Test POS VBG pH VBG pO2 VBG O2 Sat (Calc) VBG O2 Content VBG Base Excess POC Mix VBG pCO2 Pt Tmp O2 Delivery Device Room Air Blood Gas Notified Whom ED Blood Gas Notified Time 2158 Sodium Potassium Chloride Carbon Dioxide Anion Gap BUN Creatinine Estim Creat Clear Calc Est GFR (MDRD) Af Amer Est GFR (MDRD) Non-Af BUN/Creatinine Ratio Glucose Hemoglobin A1c 11.0 H Lactic Acid Calcium Phosphorus Magnesium Ferritin Total Bilirubin AST ALT Alkaline Phosphatase Lactate Dehydrogenase Total Creatine Kinase Troponin I C-React Prot Ext Range Total Protein Albumin Globulin Albumin/Globulin Ratio Triglycerides Cholesterol LDL Cholesterol VLDL Cholesterol HDL Cholesterol Lipase Procalcitonin Urine Color Yellow Urine Clarity Clear Urine pH 5.0 Ur Specific [place] 1.015 Urine Protein 15 H Urine Glucose (UA) 1000 H Urine Ketones 150 H Urine Occult Blood 25 H Urine Nitrite Negative Urine Bilirubin Negative Urine Urobilinogen Normal Ur Leukocyte Esterase Negative Urine RBC 0 SEEN Urine WBC 0 SEEN Ur Squamous Epith Cells 0 SEEN Urine Bacteria 0 SEEN Urine Mucus 0 SEEN Ethyl Alcohol Acetone Level COVID-19 (MISSY) POC Glucose 07/13/19 07/13/19 07/13/19 22:29 22:57 23:30 WBC RBC Hgb Hct MCV MCH MCHC RDW Std Deviation RDW Coeff of Oscar Plt Count MPV Immature Gran % (Auto) Neut % (Auto) Lymph % (Auto) [place] % (Auto) Eos % (Auto) Baso % (Auto) Absolute Neuts (auto) Absolute Lymphs (auto) Nucleated RBC % Differential Comment Diff Path Review Platelet Estimate RBC Morphology Anisocytosis Macrocytosis Fibrinogen D-Dimer Quant (PE/DVT) Specimen Type Sample Site pH Bicarbonate Actual POC Total CO2 Base Excess O2 Saturation ABG pCO2 ABG pO2 Rod Test VBG pH VBG pO2 VBG O2 Sat (Calc) VBG O2 Content VBG Base Excess POC Mix VBG pCO2 Pt Tmp O2 Delivery Device Blood Gas Notified Whom Blood Gas Notified Time Sodium Potassium Chloride Carbon Dioxide Anion Gap BUN Creatinine Estim Creat Clear Calc Est GFR (MDRD) Af Amer Est GFR (MDRD) Non-Af BUN/Creatinine Ratio Glucose Hemoglobin A1c Lactic Acid Calcium Phosphorus Magnesium Ferritin Total Bilirubin AST ALT Alkaline Phosphatase Lactate Dehydrogenase Total Creatine Kinase Troponin I C-React Prot Ext Range Total Protein Albumin Globulin Albumin/Globulin Ratio Triglycerides Cholesterol LDL Cholesterol VLDL Cholesterol HDL Cholesterol Lipase Procalcitonin Urine Color Urine Clarity Urine pH Ur Specific [place] Urine Protein Urine Glucose (UA) Urine Ketones Urine Occult Blood Urine Nitrite Urine Bilirubin Urine Urobilinogen Ur Leukocyte Esterase Urine RBC Urine WBC Ur Squamous Epith Cells Urine Bacteria Urine Mucus Ethyl Alcohol Acetone Level COVID-19 (MISSY) POC Glucose > 500 H* > 500 H* > 500 H* 07/14/19 07/14/19 07/14/19 00:19 00:20 00:20 WBC RBC Hgb Hct MCV MCH MCHC RDW Std Deviation RDW Coeff of Oscar Plt Count MPV Immature Gran % (Auto) Neut % (Auto) Lymph % (Auto) [place] % (Auto) Eos % (Auto) Baso % (Auto) Absolute Neuts (auto) Absolute Lymphs (auto) Nucleated RBC % Differential Comment Diff Path Review Platelet Estimate RBC Morphology Anisocytosis Macrocytosis Fibrinogen D-Dimer Quant (PE/DVT) Specimen Type Sample Site pH Bicarbonate Actual POC Total CO2 Base Excess O2 Saturation ABG pCO2 ABG pO2 Rod Test VBG pH VBG pO2 VBG O2 Sat (Calc) VBG O2 Content VBG Base Excess POC Mix VBG pCO2 Pt Tmp O2 Delivery Device Blood Gas Notified Whom Blood Gas Notified Time Sodium 134 L Potassium 3.6 Chloride 98 Carbon Dioxide 9.0 L* Anion Gap 27 H BUN 66 H Creatinine 2.25 H Estim Creat Clear Calc 28.15 Est GFR (MDRD) Af Amer 37 L Est GFR (MDRD) Non-Af 31 L BUN/Creatinine Ratio 29.3 H Glucose 974 H* Hemoglobin A1c Lactic Acid 2.6 H* Calcium 8.2 L Phosphorus Magnesium Ferritin Total Bilirubin AST ALT Alkaline Phosphatase Lactate Dehydrogenase Total Creatine Kinase Troponin I C-React Prot Ext Range Total Protein Albumin Globulin Albumin/Globulin Ratio Triglycerides Cholesterol LDL Cholesterol VLDL Cholesterol HDL Cholesterol Lipase Procalcitonin Urine Color Urine Clarity Urine pH Ur Specific [place] Urine Protein Urine Glucose (UA) Urine Ketones Urine Occult Blood Urine Nitrite Urine Bilirubin Urine Urobilinogen Ur Leukocyte Esterase Urine RBC Urine WBC Ur Squamous Epith Cells Urine Bacteria Urine Mucus Ethyl Alcohol Acetone Level COVID-19 (MISSY) POC Glucose > 500 H* 07/14/19 07/14/19 07/14/19 01:15 02:05 03:55 WBC 18.1 H RBC 4.94 Hgb 15.4 Hct 44.5 MCV 90.1 D MCH 31.2 MCHC 34.6 D RDW Std Deviation 39.3 RDW Coeff of Oscar 11.9 Plt Count 210 MPV 12.0 Immature Gran % (Auto) 0.700 Neut % (Auto) 85.5 H Lymph % (Auto) 5.5 L [place] % (Auto) 8.2 Eos % (Auto) 0.0 Baso % (Auto) 0.1 Absolute Neuts (auto) 15.4 H Absolute Lymphs (auto) 0.99 Nucleated RBC % 0 Differential Comment SCANNED Diff Path Review Platelet Estimate RBC Morphology Anisocytosis Macrocytosis Fibrinogen D-Dimer Quant (PE/DVT) Specimen Type Sample Site pH Bicarbonate Actual POC Total CO2 Base Excess O2 Saturation ABG pCO2 ABG pO2 Rod Test VBG pH VBG pO2 VBG O2 Sat (Calc) VBG O2 Content VBG Base Excess POC Mix VBG pCO2 Pt Tmp O2 Delivery Device Blood Gas Notified Whom Blood Gas Notified Time Sodium Potassium Chloride Carbon Dioxide Anion Gap BUN Creatinine Estim Creat Clear Calc Est GFR (MDRD) Af Amer Est GFR (MDRD) Non-Af BUN/Creatinine Ratio Glucose 709 H* Hemoglobin A1c Lactic Acid Calcium Phosphorus Magnesium Ferritin Total Bilirubin AST ALT Alkaline Phosphatase Lactate Dehydrogenase Total Creatine Kinase Troponin I C-React Prot Ext Range Total Protein Albumin Globulin Albumin/Globulin Ratio Triglycerides Cholesterol LDL Cholesterol VLDL Cholesterol HDL Cholesterol Lipase Procalcitonin Urine Color Urine Clarity Urine pH Ur Specific [place] Urine Protein Urine Glucose (UA) Urine Ketones Urine Occult Blood Urine Nitrite Urine Bilirubin Urine Urobilinogen Ur Leukocyte Esterase Urine RBC Urine WBC Ur Squamous Epith Cells Urine Bacteria Urine Mucus Ethyl Alcohol Acetone Level COVID-19 (MISSY) Not Detected POC Glucose 07/14/19 07/14/19 07/14/19 03:55 03:58 05:35 WBC RBC Hgb Hct MCV MCH MCHC RDW Std Deviation RDW Coeff of Oscar Plt Count MPV Immature Gran % (Auto) Neut % (Auto) Lymph % (Auto) [place] % (Auto) Eos % (Auto) Baso % (Auto) Absolute Neuts (auto) Absolute Lymphs (auto) Nucleated RBC % Differential Comment Diff Path Review Platelet Estimate RBC Morphology Anisocytosis Macrocytosis Fibrinogen D-Dimer Quant (PE/DVT) Specimen Type VIOLET Sample Site OTHER pH Bicarbonate Actual POC Total CO2 Base Excess O2 Saturation ABG pCO2 ABG pO2 Rod Test VBG pH 7.21 L VBG pO2 44 H VBG O2 Sat (Calc) 71 H VBG O2 Content 10 L VBG Base Excess -19 L POC Mix VBG pCO2 Pt Tmp 23.1 L O2 Delivery Device Room Air Blood Gas Notified Whom [facility] Blood Gas Notified Time 404 Sodium 136 Potassium 4.2 Chloride 103 Carbon Dioxide 11.0 L Anion Gap 22 H BUN 68 H Creatinine 2.03 H Estim Creat Clear Calc 31.20 Est GFR (MDRD) Af Amer 42 L Est GFR (MDRD) Non-Af 35 L BUN/Creatinine Ratio 33.5 H Glucose 659 H* 600 H* Hemoglobin A1c Lactic Acid Calcium 8.3 L Phosphorus 1.2 L Magnesium 3.0 H Ferritin Total Bilirubin 0.80 AST 16 ALT 30 Alkaline Phosphatase 131 H Lactate Dehydrogenase Total Creatine Kinase Troponin I C-React Prot Ext Range Total Protein 7.0 Albumin 3.4 Globulin 3.6 Albumin/Globulin Ratio 0.9 Triglycerides 135 Cholesterol 163 LDL Cholesterol 95 VLDL Cholesterol 27 HDL Cholesterol 41 Lipase Procalcitonin Urine Color Urine Clarity Urine pH Ur Specific [place] Urine Protein Urine Glucose (UA) Urine Ketones Urine Occult Blood Urine Nitrite Urine Bilirubin Urine Urobilinogen Ur Leukocyte Esterase Urine RBC Urine WBC Ur Squamous Epith Cells Urine Bacteria Urine Mucus Ethyl Alcohol Acetone Level COVID-19 (MISSY) POC Glucose 07/14/19 07/14/19 07/14/19 07:55 07:55 07:55 WBC RBC Hgb Hct MCV MCH MCHC RDW Std Deviation RDW Coeff of Oscar Plt Count MPV Immature Gran % (Auto) Neut % (Auto) Lymph % (Auto) [place] % (Auto) Eos % (Auto) Baso % (Auto) Absolute Neuts (auto) Absolute Lymphs (auto) Nucleated RBC % Differential Comment Diff Path Review Platelet Estimate RBC Morphology Anisocytosis Macrocytosis Fibrinogen 258 D-Dimer Quant (PE/DVT) 1.45 H* Specimen Type Sample Site pH Bicarbonate Actual POC Total CO2 Base Excess O2 Saturation ABG pCO2 ABG pO2 Rod Test VBG pH VBG pO2 VBG O2 Sat (Calc) VBG O2 Content VBG Base Excess POC Mix VBG pCO2 Pt Tmp O2 Delivery Device Blood Gas Notified Whom Blood Gas Notified Time Sodium 140 Potassium 4.5 Chloride 107 Carbon Dioxide 15.0 L Anion Gap 18 H BUN 64 H Creatinine 1.83 H Estim Creat Clear Calc 34.62 Est GFR (MDRD) Af Amer 47 L Est GFR (MDRD) Non-Af 39 L BUN/Creatinine Ratio 35.0 H Glucose 553 H* Hemoglobin A1c Lactic Acid Calcium 8.2 L Phosphorus Magnesium Ferritin 533 H Total Bilirubin AST ALT Alkaline Phosphatase Lactate Dehydrogenase 165 Total Creatine Kinase 123 Troponin I 0.043 C-React Prot Ext Range 38.00 H Total Protein Albumin Globulin Albumin/Globulin Ratio Triglycerides Cholesterol LDL Cholesterol VLDL Cholesterol HDL Cholesterol Lipase Procalcitonin 0.87 H Urine Color Urine Clarity Urine pH Ur Specific [place] Urine Protein Urine Glucose (UA) Urine Ketones Urine Occult Blood Urine Nitrite Urine Bilirubin Urine Urobilinogen Ur Leukocyte Esterase Urine RBC Urine WBC Ur Squamous Epith Cells Urine Bacteria Urine Mucus Ethyl Alcohol Acetone Level COVID-19 (MISSY) POC Glucose 07/14/19 07/14/19 07/14/19 07:55 10:30 11:35 WBC RBC Hgb Hct MCV MCH MCHC RDW Std Deviation RDW Coeff of Oscar Plt Count MPV Immature Gran % (Auto) Neut % (Auto) Lymph % (Auto) [place] % (Auto) Eos % (Auto) Baso % (Auto) Absolute Neuts (auto) Absolute Lymphs (auto) Nucleated RBC % Differential Comment Diff Path Review Platelet Estimate RBC Morphology Anisocytosis Macrocytosis Fibrinogen D-Dimer Quant (PE/DVT) Specimen Type Sample Site pH Bicarbonate Actual POC Total CO2 Base Excess O2 Saturation ABG pCO2 ABG pO2 Rod Test VBG pH VBG pO2 VBG O2 Sat (Calc) VBG O2 Content VBG Base Excess POC Mix VBG pCO2 Pt Tmp O2 Delivery Device Blood Gas Notified Whom Blood Gas Notified Time Sodium 146 H Potassium 3.9 Chloride 112 H Carbon Dioxide 15.0 L Anion Gap 19 H BUN 57 H Creatinine 1.73 H Estim Creat Clear Calc 36.62 Est GFR (MDRD) Af Amer 50 L Est GFR (MDRD) Non-Af 42 L BUN/Creatinine Ratio 32.9 H Glucose 458 H* Hemoglobin A1c Lactic Acid Calcium 8.4 L Phosphorus Magnesium Ferritin Total Bilirubin AST ALT Alkaline Phosphatase Lactate Dehydrogenase Total Creatine Kinase Troponin I C-React Prot Ext Range Total Protein Albumin Globulin Albumin/Globulin Ratio Triglycerides Cholesterol LDL Cholesterol VLDL Cholesterol HDL Cholesterol Lipase 5068 H Procalcitonin Urine Color Urine Clarity Urine pH Ur Specific [place] Urine Protein Urine Glucose (UA) Urine Ketones Urine Occult Blood Urine Nitrite Urine Bilirubin Urine Urobilinogen Ur Leukocyte Esterase Urine RBC Urine WBC Ur Squamous Epith Cells Urine Bacteria Urine Mucus Ethyl Alcohol Acetone Level COVID-19 (MISSY) POC Glucose 464 H* 07/14/19 07/14/19 07/14/19 12:13 14:14 16:10 WBC RBC Hgb Hct MCV MCH MCHC RDW Std Deviation RDW Coeff of Oscar Plt Count MPV Immature Gran % (Auto) Neut % (Auto) Lymph % (Auto) [place] % (Auto) Eos % (Auto) Baso % (Auto) Absolute Neuts (auto) Absolute Lymphs (auto) Nucleated RBC % Differential Comment Diff Path Review Platelet Estimate RBC Morphology Anisocytosis Macrocytosis Fibrinogen D-Dimer Quant (PE/DVT) Specimen Type Sample Site pH Bicarbonate Actual POC Total CO2 Base Excess O2 Saturation ABG pCO2 ABG pO2 Rod Test VBG pH VBG pO2 VBG O2 Sat (Calc) VBG O2 Content VBG Base Excess POC Mix VBG pCO2 Pt Tmp O2 Delivery Device Blood Gas Notified Whom Blood Gas Notified Time Sodium Potassium Chloride Carbon Dioxide Anion Gap BUN Creatinine Estim Creat Clear Calc Est GFR (MDRD) Af Amer Est GFR (MDRD) Non-Af BUN/Creatinine Ratio Glucose Hemoglobin A1c Lactic Acid Calcium Phosphorus Magnesium Ferritin Total Bilirubin AST ALT Alkaline Phosphatase Lactate Dehydrogenase Total Creatine Kinase Troponin I C-React Prot Ext Range Total Protein Albumin Globulin Albumin/Globulin Ratio Triglycerides Cholesterol LDL Cholesterol VLDL Cholesterol HDL Cholesterol Lipase Procalcitonin Urine Color Urine Clarity Urine pH Ur Specific [place] Urine Protein Urine Glucose (UA) Urine Ketones Urine Occult Blood Urine Nitrite Urine Bilirubin Urine Urobilinogen Ur Leukocyte Esterase Urine RBC Urine WBC Ur Squamous Epith Cells Urine Bacteria Urine Mucus Ethyl Alcohol Acetone Level COVID-19 (MISSY) POC Glucose 421 H 411 H 383 H 07/14/19 07/14/19 07/14/19 16:18 17:30 18:10 WBC RBC Hgb Hct MCV MCH MCHC RDW Std Deviation RDW Coeff of Oscar Plt Count MPV Immature Gran % (Auto) Neut % (Auto) Lymph % (Auto) [place] % (Auto) Eos % (Auto) Baso % (Auto) Absolute Neuts (auto) Absolute Lymphs (auto) Nucleated RBC % Differential Comment Diff Path Review Platelet Estimate RBC Morphology Anisocytosis Macrocytosis Fibrinogen D-Dimer Quant (PE/DVT) Specimen Type Sample Site pH Bicarbonate Actual POC Total CO2 Base Excess O2 Saturation ABG pCO2 ABG pO2 Rod Test VBG pH VBG pO2 VBG O2 Sat (Calc) VBG O2 Content VBG Base Excess POC Mix VBG pCO2 Pt Tmp O2 Delivery Device Blood Gas Notified Whom Blood Gas Notified Time Sodium Cancelled 149 H Potassium Cancelled 3.8 Chloride Cancelled 119 H Carbon Dioxide Cancelled 13.0 L Anion Gap Cancelled 17 H BUN Cancelled 46 H Creatinine Cancelled 1.42 H Estim Creat Clear Calc Cancelled 44.61 Est GFR (MDRD) Af Amer Cancelled 63 Est GFR (MDRD) Non-Af Cancelled 52 L BUN/Creatinine Ratio Cancelled 32.4 H Glucose Cancelled 385 H Hemoglobin A1c Lactic Acid Calcium Cancelled 7.9 L Phosphorus Magnesium Ferritin Total Bilirubin AST ALT Alkaline Phosphatase Lactate Dehydrogenase Total Creatine Kinase Troponin I C-React Prot Ext Range Total Protein Albumin Globulin Albumin/Globulin Ratio Triglycerides Cholesterol LDL Cholesterol VLDL Cholesterol HDL Cholesterol Lipase Procalcitonin Urine Color Urine Clarity Urine pH Ur Specific [place] Urine Protein Urine Glucose (UA) Urine Ketones Urine Occult Blood Urine Nitrite Urine Bilirubin Urine Urobilinogen Ur Leukocyte Esterase Urine RBC Urine WBC Ur Squamous Epith Cells Urine Bacteria Urine Mucus Ethyl Alcohol Acetone Level COVID-19 (MISSY) POC Glucose Cancelled 07/14/19 07/14/19 07/14/19 18:30 19:59 21:02 WBC RBC Hgb Hct MCV MCH MCHC RDW Std Deviation RDW Coeff of Oscar Plt Count MPV Immature Gran % (Auto) Neut % (Auto) Lymph % (Auto) [place] % (Auto) Eos % (Auto) Baso % (Auto) Absolute Neuts (auto) Absolute Lymphs (auto) Nucleated RBC % Differential Comment Diff Path Review Platelet Estimate RBC Morphology Anisocytosis Macrocytosis Fibrinogen D-Dimer Quant (PE/DVT) Specimen Type Sample Site pH Bicarbonate Actual POC Total CO2 Base Excess O2 Saturation ABG pCO2 ABG pO2 Rod Test VBG pH VBG pO2 VBG O2 Sat (Calc) VBG O2 Content VBG Base Excess POC Mix VBG pCO2 Pt Tmp O2 Delivery Device Blood Gas Notified Whom Blood Gas Notified Time Sodium Potassium Chloride Carbon Dioxide Anion Gap BUN Creatinine Estim Creat Clear Calc Est GFR (MDRD) Af Amer Est GFR (MDRD) Non-Af BUN/Creatinine Ratio Glucose Hemoglobin A1c Lactic Acid Calcium Phosphorus Magnesium Ferritin Total Bilirubin AST ALT Alkaline Phosphatase Lactate Dehydrogenase Total Creatine Kinase Troponin I C-React Prot Ext Range Total Protein Albumin Globulin Albumin/Globulin Ratio Triglycerides Cholesterol LDL Cholesterol VLDL Cholesterol HDL Cholesterol Lipase Procalcitonin Urine Color Urine Clarity Urine pH Ur Specific [place] Urine Protein Urine Glucose (UA) Urine Ketones Urine Occult Blood Urine Nitrite Urine Bilirubin Urine Urobilinogen Ur Leukocyte Esterase Urine RBC Urine WBC Ur Squamous Epith Cells Urine Bacteria Urine Mucus Ethyl Alcohol Acetone Level COVID-19 (MISSY) POC Glucose 310 H 318 H 338 H 07/14/19 07/14/19 07/14/19 22:15 22:19 23:08 WBC RBC Hgb Hct MCV MCH MCHC RDW Std Deviation RDW Coeff of Oscar Plt Count MPV Immature Gran % (Auto) Neut % (Auto) Lymph % (Auto) [place] % (Auto) Eos % (Auto) Baso % (Auto) Absolute Neuts (auto) Absolute Lymphs (auto) Nucleated RBC % Differential Comment Diff Path Review Platelet Estimate RBC Morphology Anisocytosis Macrocytosis Fibrinogen D-Dimer Quant (PE/DVT) Specimen Type Sample Site pH Bicarbonate Actual POC Total CO2 Base Excess O2 Saturation ABG pCO2 ABG pO2 Rod Test VBG pH VBG pO2 VBG O2 Sat (Calc) VBG O2 Content VBG Base Excess POC Mix VBG pCO2 Pt Tmp O2 Delivery Device Blood Gas Notified Whom Blood Gas Notified Time Sodium 150 H Potassium 3.6 Chloride 119 H Carbon Dioxide 20.0 L Anion Gap 11 BUN 38 H Creatinine 1.36 H Estim Creat Clear Calc 46.58 Est GFR (MDRD) Af Amer 66 Est GFR (MDRD) Non-Af 55 L BUN/Creatinine Ratio 27.9 H Glucose 298 H Hemoglobin A1c Lactic Acid Calcium 7.8 L Phosphorus Magnesium Ferritin Total Bilirubin AST ALT Alkaline Phosphatase Lactate Dehydrogenase Total Creatine Kinase Troponin I C-React Prot Ext Range Total Protein Albumin Globulin Albumin/Globulin Ratio Triglycerides Cholesterol LDL Cholesterol VLDL Cholesterol HDL Cholesterol Lipase Procalcitonin Urine Color Urine Clarity Urine pH Ur Specific [place] Urine Protein Urine Glucose (UA) Urine Ketones Urine Occult Blood Urine Nitrite Urine Bilirubin Urine Urobilinogen Ur Leukocyte Esterase Urine RBC Urine WBC Ur Squamous Epith Cells Urine Bacteria Urine Mucus Ethyl Alcohol Acetone Level COVID-19 (MISSY) POC Glucose 268 H 308 H 07/15/19 07/15/19 07/15/19 00:01 01:01 01:59 WBC RBC Hgb Hct MCV MCH MCHC RDW Std Deviation RDW Coeff of Oscar Plt Count MPV Immature Gran % (Auto) Neut % (Auto) Lymph % (Auto) [place] % (Auto) Eos % (Auto) Baso % (Auto) Absolute Neuts (auto) Absolute Lymphs (auto) Nucleated RBC % Differential Comment Diff Path Review Platelet Estimate RBC Morphology Anisocytosis Macrocytosis Fibrinogen D-Dimer Quant (PE/DVT) Specimen Type Sample Site pH Bicarbonate Actual POC Total CO2 Base Excess O2 Saturation ABG pCO2 ABG pO2 Rod Test VBG pH VBG pO2 VBG O2 Sat (Calc) VBG O2 Content VBG Base Excess POC Mix VBG pCO2 Pt Tmp O2 Delivery Device Blood Gas Notified Whom Blood Gas Notified Time Sodium Potassium Chloride Carbon Dioxide Anion Gap BUN Creatinine Estim Creat Clear Calc Est GFR (MDRD) Af Amer Est GFR (MDRD) Non-Af BUN/Creatinine Ratio Glucose Hemoglobin A1c Lactic Acid Calcium Phosphorus Magnesium Ferritin Total Bilirubin AST ALT Alkaline Phosphatase Lactate Dehydrogenase Total Creatine Kinase Troponin I C-React Prot Ext Range Total Protein Albumin Globulin Albumin/Globulin Ratio Triglycerides Cholesterol LDL Cholesterol VLDL Cholesterol HDL Cholesterol Lipase Procalcitonin Urine Color Urine Clarity Urine pH Ur Specific [place] Urine Protein Urine Glucose (UA) Urine Ketones Urine Occult Blood Urine Nitrite Urine Bilirubin Urine Urobilinogen Ur Leukocyte Esterase Urine RBC Urine WBC Ur Squamous Epith Cells Urine Bacteria Urine Mucus Ethyl Alcohol Acetone Level COVID-19 (MISSY) POC Glucose 271 H 257 H 235 H 07/15/19 07/15/19 07/15/19 02:00 02:00 02:00 WBC 14.3 H RBC 4.23 L Hgb 13.4 Hct 38.4 L MCV 90.8 MCH 31.7 MCHC 34.9 RDW Std Deviation 41.1 RDW Coeff of Oscar 12.5 Plt Count 190 MPV 11.7 Immature Gran % (Auto) 0.400 Neut % (Auto) 81.7 H Lymph % (Auto) 10.7 L [place] % (Auto) 7.1 Eos % (Auto) 0.0 Baso % (Auto) 0.1 Absolute Neuts (auto) 11.7 H Absolute Lymphs (auto) 1.53 Nucleated RBC % 0 Differential Comment Diff Path Review Platelet Estimate RBC Morphology Anisocytosis Macrocytosis Fibrinogen D-Dimer Quant (PE/DVT) Specimen Type Sample Site pH Bicarbonate Actual POC Total CO2 Base Excess O2 Saturation ABG pCO2 ABG pO2 Rod Test VBG pH VBG pO2 VBG O2 Sat (Calc) VBG O2 Content VBG Base Excess POC Mix VBG pCO2 Pt Tmp O2 Delivery Device Blood Gas Notified Whom Blood Gas Notified Time Sodium 151 H Cancelled Potassium 3.8 Cancelled Chloride 120 H Cancelled Carbon Dioxide 20.0 L Cancelled Anion Gap 11 Cancelled BUN 34 H Cancelled Creatinine 1.35 H Cancelled Estim Creat Clear Calc 46.92 Cancelled Est GFR (MDRD) Af Amer 67 Cancelled Est GFR (MDRD) Non-Af 55 L Cancelled BUN/Creatinine Ratio 25.2 H Cancelled Glucose 241 H Cancelled Hemoglobin A1c Lactic Acid Calcium 7.8 L Cancelled Phosphorus Magnesium 3.0 H Ferritin Total Bilirubin 0.70 AST 17 ALT 23 Alkaline Phosphatase 89 Lactate Dehydrogenase Total Creatine Kinase Troponin I C-React Prot Ext Range Total Protein 6.0 L Albumin 3.1 L Globulin 2.9 Albumin/Globulin Ratio 1.1 Triglycerides Cholesterol LDL Cholesterol VLDL Cholesterol HDL Cholesterol Lipase Procalcitonin Urine Color Urine Clarity Urine pH Ur Specific [place] Urine Protein Urine Glucose (UA) Urine Ketones Urine Occult Blood Urine Nitrite Urine Bilirubin Urine Urobilinogen Ur Leukocyte Esterase Urine RBC Urine WBC Ur Squamous Epith Cells Urine Bacteria Urine Mucus Ethyl Alcohol Acetone Level COVID-19 (MISSY) POC Glucose 07/15/19 07/15/19 07/15/19 04:13 06:05 06:05 WBC RBC Hgb Hct MCV MCH MCHC RDW Std Deviation RDW Coeff of Oscar Plt Count MPV Immature Gran % (Auto) Neut % (Auto) Lymph % (Auto) [place] % (Auto) Eos % (Auto) Baso % (Auto) Absolute Neuts (auto) Absolute Lymphs (auto) Nucleated RBC % Differential Comment Diff Path Review Platelet Estimate RBC Morphology Anisocytosis Macrocytosis Fibrinogen D-Dimer Quant (PE/DVT) Specimen Type Sample Site pH Bicarbonate Actual POC Total CO2 Base Excess O2 Saturation ABG pCO2 ABG pO2 Rod Test VBG pH VBG pO2 VBG O2 Sat (Calc) VBG O2 Content VBG Base Excess POC Mix VBG pCO2 Pt Tmp O2 Delivery Device Blood Gas Notified Whom Blood Gas Notified Time Sodium 148 H Potassium 3.5 Chloride 118 H Carbon Dioxide 21.0 Anion Gap 9 BUN 28 H Creatinine 1.23 Estim Creat Clear Calc 51.50 Est GFR (MDRD) Af Amer 74 Est GFR (MDRD) Non-Af 62 BUN/Creatinine Ratio 22.8 H Glucose 225 H Hemoglobin A1c Lactic Acid Calcium 7.7 L Phosphorus Magnesium Ferritin Total Bilirubin AST ALT Alkaline Phosphatase Lactate Dehydrogenase Total Creatine Kinase Troponin I C-React Prot Ext Range Total Protein Albumin Globulin Albumin/Globulin Ratio Triglycerides Cholesterol LDL Cholesterol VLDL Cholesterol HDL Cholesterol Lipase 1128 H Procalcitonin Urine Color Urine Clarity Urine pH Ur Specific [place] Urine Protein Urine Glucose (UA) Urine Ketones Urine Occult Blood Urine Nitrite Urine Bilirubin Urine Urobilinogen Ur Leukocyte Esterase Urine RBC Urine WBC Ur Squamous Epith Cells Urine Bacteria Urine Mucus Ethyl Alcohol Acetone Level COVID-19 (MISSY) POC Glucose 214 H 216 H Clinical Impression(s) from Imaging Studies Chest X-Ray 07/13/19 21:57 IMPRESSION: No acute cardiopulmonary disease perceived. at 2212 Reported and signed by: Shayne Bennett MD Electronically Signed: Shayne Bennett MD at 22:11 EDT Tel , Service support , Abdomen Ultrasound 07/14/19 01:43 IMPRESSION: Normal right upper quadrant ultrasound examination. Electronically Signed: Grover Armstrongtobin, at 9:45 EDT , Service support , Medical Necessity - Tobacco Use Smoking Status: Never smoker Tobacco Use: Non-smoker Assessment/Plan All Active Problems DKA (diabetic ketoacidoses) (Acute) Lactic acidosis (Acute) GILBERTO (acute kidney injury) (Acute) Elevated BP without diagnosis of hypertension (Acute) Diabetic ketoacidosis (Acute) Leukocytosis (Acute) Lactic acidosis due to diabetes mellitus (Acute) Acute kidney injury (Acute) RECOMMENDATIONS: 1. Transition from continuous insulin to basal and sliding scale insulin coverage. 2. Okay to advance diet from my perspective today. Start with clears this morning and advance diet if the patient tolerates. 3. Diabetic education to be provided. 4. Continue to monitor for signs of alcohol withdrawal. 5. If the patient tolerates p.o. intake, supplemental fluids can be discontinued. IMPRESSIONS: 1. Diabetic ketoacidosis Resolved. The patient reported that he was never previously diagnosed with diabetes. He has a hemoglobin A1c greater than 11. Plan to transition the patient to basal and sliding scale insulin coverage today. His diet will be cautiously advanced over the course of the day. If the patient tolerates p.o. intake, supplemental fluids will be discontinued. Diabetic education to be provided. The patient will require an appointment to establish care with a primary care provider and endocrinology upon discharge. 2. Acute pancreatitis Improved. Unclear precipitating etiology. The patient does have a longstanding history of alcohol dependency. Although there was initial report that he had been abstinent from alcohol for the last 3 months, he did admit to me that he had consumed alcohol on several occasions over the course of the last week. Therefore, alcohol may be a contributing factor. Right upper quadrant ultrasound was unremarkable and showed no evidence of gallstones. Plan to continue conservative management. The patient will be provided with clear liquids this morning, with plans to advance his diet if he remains asymptomatic. 3. Acute kidney injury Improved. Likely prerenal in etiology. The patient's creatinine and urine output improved with supplemental IV fluid hydration. Continue to monitor urine output accordingly. No current indication for renal replacement therapy. 4. History of alcohol dependency Continue to monitor for any signs of alcohol withdrawal. This note was generated with [employer] dictation software. It may contain incorrect words, spelling, and punctuation that were not noted in checking the note before signing. Inpatient E&M: [id number] Subs Hosp L3
[2019-07-15 07:11] LABS: Bedside Glucose 218 mg/dL (70-110)
--- NOTE | 2019-07-15 07:12 | PN_ITS ---
Patient Problems: Active and Suspected Problems DKA (diabetic ketoacidoses) (Acute) Lactic acidosis (Acute) GILBERTO (acute kidney injury) (Acute) Elevated BP without diagnosis of hypertension (Acute) Diabetic ketoacidosis (Acute) Leukocytosis (Acute) Lactic acidosis due to diabetes mellitus (Acute) Acute kidney injury (Acute) Reason for Visit: DKA Subjective: Patient DKA resolved however still complains of epigastric discomfort. Objective: GENERAL: cooperative HEENT: Atraumatic; EYES; Anicteric, Normal Conjunctiva NECK; supple, normal thyroid, RESPIRATORY: Diminished to auscultation CARDIOVASCULAR: Regular S1 S2, GI: soft, with epigastric tenderness : No Renal angle tenderness; EXTREMITIES: No edema, no clubbing, MUSCULOSKELETAL: no muscle waisting NEURO: Awake; no lateralizing signs. SKIN: No Rash PSYCH; Flat affect Vitals/I&O's: Vital Signs Temp Pulse Resp BP Pulse Ox 97.9 F 62 12 121/71 H 100 07/15/19 04:00 07/15/19 07:00 07/15/19 07:00 07/15/19 07:00 07/15/19 07:00 Oxygen Delivery Method Room Air Weight: 75.6 kg Body Mass Index (BMI) 25.7 Finger Stick Blood Glucose 218 Intake and Output for Last 24 Hours 07/13/19 07/14/19 07/15/19 23:59 23:59 23:59 Intake Total 4099.43 / 4102.32 1045.36 / 1045.36 Output Total 4850 / 4850 500 / 500 Balance -750.57 / -747.68 545.36 / 545.36 Laboratory Results 07/13/19 21:30: Diff Path Review Reviewed 07/14/19 07:55: Fibrinogen 258, D-Dimer Quant (PE/DVT) 1.45 H* 07/14/19 07:55: Sodium 140, Potassium 4.5, Chloride 107, Carbon Dioxide 15.0 L, Anion Gap 18 H, BUN 64 H, Creatinine 1.83 H, Estim Creat Clear Calc 34.62, Est GFR (MDRD) Af Amer 47 L, Est GFR (MDRD) Non-Af 39 L, BUN/Creatinine Ratio 35.0 H , Glucose 553 H*, Calcium 8.2 L, Ferritin 533 H, Lactate Dehydrogenase 165, Total Creatine Kinase 123, Troponin I 0.043, C-React Prot Ext Range 38.00 H 07/14/19 07:55: Procalcitonin 0.87 H 07/14/19 07:55: Lipase 5068 H 07/14/19 10:30: POC Glucose 464 H* 07/14/19 11:35: Sodium 146 H, Potassium 3.9, Chloride 112 H, Carbon Dioxide 15.0 L, Anion Gap 19 H, BUN 57 H, Creatinine 1.73 H, Estim Creat Clear Calc 36.62, Est GFR (MDRD) Af Amer 50 L, Est GFR (MDRD) Non-Af 42 L, BUN/Creatinine Ratio 32.9 H, Glucose 458 H*, Calcium 8.4 L 07/14/19 12:13: POC Glucose 421 H 07/14/19 14:14: POC Glucose 411 H 07/14/19 16:10: POC Glucose 383 H 07/14/19 16:18: Sodium Cancelled, Potassium Cancelled, Chloride Cancelled, Carbon Dioxide Cancelled, Anion Gap Cancelled, BUN Cancelled, Creatinine Cancelled, Estim Creat Clear Calc Cancelled, Est GFR (MDRD) Af Amer Cancelled, Est GFR (MDRD) Non-Af Cancelled, BUN/Creatinine Ratio Cancelled, Glucose Cancelled, Calcium Cancelled 07/14/19 17:30: Sodium 149 H, Potassium 3.8, Chloride 119 H, Carbon Dioxide 13.0 L, Anion Gap 17 H, BUN 46 H, Creatinine 1.42 H, Estim Creat Clear Calc 44.61, Est GFR (MDRD) Af Amer 63, Est GFR (MDRD) Non-Af 52 L, BUN/Creatinine Ratio 32.4 H, Glucose 385 H, Calcium 7.9 L 07/14/19 18:10: POC Glucose Cancelled 07/14/19 18:30: POC Glucose 310 H 07/14/19 19:59: POC Glucose 318 H 07/14/19 21:02: POC Glucose 338 H 07/14/19 22:15: Sodium 150 H, Potassium 3.6, Chloride 119 H, Carbon Dioxide 20.0 L, Anion Gap 11, BUN 38 H, Creatinine 1.36 H, Estim Creat Clear Calc 46.58, Est GFR (MDRD) Af Amer 66, Est GFR (MDRD) Non-Af 55 L, BUN/Creatinine Ratio 27.9 H, Glucose 298 H, Calcium 7.8 L 07/14/19 22:19: POC Glucose 268 H 07/14/19 23:08: POC Glucose 308 H 07/15/19 00:01: POC Glucose 271 H 07/15/19 01:01: POC Glucose 257 H 07/15/19 01:59: POC Glucose 235 H 07/15/19 02:00: WBC 14.3 H, RBC 4.23 L, Hgb 13.4, Hct 38.4 L, MCV 90.8, MCH 31.7, MCHC 34.9, RDW Std Deviation 41.1, RDW Coeff of Oscar 12.5, Plt Count 190, MPV 11.7, Immature Gran % (Auto) 0.400, Neut % (Auto) 81.7 H, Lymph % (Auto) 10.7 L, [place] % (Auto) 7.1, Eos % (Auto) 0.0, Baso % (Auto) 0.1, Absolute Neuts (auto) 11.7 H, Absolute Lymphs (auto) 1.53, Nucleated RBC % 0 07/15/19 02:00: Sodium 151 H, Potassium 3.8, Chloride 120 H, Carbon Dioxide 20.0 L, Anion Gap 11, BUN 34 H, Creatinine 1.35 H, Estim Creat Clear Calc 46.92, Est GFR (MDRD) Af Amer 67, Est GFR (MDRD) Non-Af 55 L, BUN/Creatinine Ratio 25.2 H, Glucose 241 H, Calcium 7.8 L, Magnesium 3.0 H, Total Bilirubin 0.70, AST 17, ALT 23, Alkaline Phosphatase 89, Total Protein 6.0 L, Albumin 3.1 L, Globulin 2.9, A lbumin/Globulin Ratio 1.1 07/15/19 02:00: Sodium Cancelled, Potassium Cancelled, Chloride Cancelled, Carbon Dioxide Cancelled, Anion Gap Cancelled, BUN Cancelled, Creatinine C ancelled, Estim Creat Clear Calc Cancelled, Est GFR (MDRD) Af Amer Cancelled, Est GFR (MDRD) Non-Af Cancelled, BUN/Creatinine Ratio Cancelled, Glucose Cancelled, Calcium Cancelled 07/15/19 04:13: POC Glucose 214 H 07/15/19 06:05: Sodium 148 H, Potassium 3.5, Chloride 118 H, Carbon Dioxide 21.0, Anion Gap 9, BUN 28 H, Creatinine 1.23, Estim Creat Clear Calc 51.50, Est GFR (MDRD) Af Amer 74, Est GFR (MDRD) Non-Af 62, BUN/Creatinine Ratio 22.8 H, Glucose 225 H, Calcium 7.7 L, Lipase 1128 H 07/15/19 06:05: POC Glucose 216 H 07/15/19 07:05: POC Glucose 218 H Current Medications Acetaminophen (Tylenol) 650 mg PO Q6H PRN PRN PRN Reason: Pain Score 1-10/Temp > 100.7 F Al Hydroxide/Mg Hydroxide (Mylanta Ii) 30 ml PO Q6H PRN PRN PRN Reason: Gastric Burning Albuterol Sulfate (Ventolin Aerosols) 2.5 mg INHALATION Q2H PRN PRN PRN Reason: Dyspnea, wheezing Dextrose (D50w Syringe) 0 gm IV X1 PRN; Protocol PRN Reason: Hypoglycemia Enoxaparin Sodium (Lovenox) 70 mg SC Q12 NORAH Last Admin: 07/14/19 21:06 Dose: 70 mg Documented by: Glucagon () 1 mg IM .X1 PRN PRN Reason: Hypoglycemia Guaifenesin (Robitussin) 10 ml PO Q4H PRN PRN PRN Reason: COUGH Hydralazine HCl (Apresoline Iv) 10 mg IV Q4H PRN PRN PRN Reason: SBP > 160 Insulin Human Lispro 100 unit/ (Sodium Chloride) 100 mls @ 7.711 mls/hr IV .[id number] NORAH; Protocol Last Titration: 07/15/19 07:03 Dose: 0.07 units/kg/hr, 5.4 mls/hr Documented by: Pantoprazole Sodium 40 mg/ (Sodium Chloride) 110 mls @ 330 mls/hr IV Q12 NORAH Last Infusion: 07/14/19 21:26 Dose: Infused Documented by: Sodium Chloride () 250 mls @ 15 mls/hr IV .[id number] PRN PRN Reason: Saline Flush Last Infusion: 07/15/19 04:07 Dose: 15 mls/hr Documented by: Dextrose/Sodium Chloride () 1,000 mls @ 150 mls/hr IV .[id number] NORAH Last Admin: 07/15/19 02:45 Dose: 150 mls/hr Documented by: Magnesium Hydroxide (Milk Of Magnesia) 30 ml PO DAILY PRN PRN PRN Reason: Constipation Melatonin (Melatonin) 3 mg PO QHS PRN PRN PRN Reason: INSOMNIA Morphine Sulfate () 2 mg IV Q3H PRN PRN PRN Reason: Pain Score 6-10/10 Nitroglycerin (Nitrostat) 0.4 mg SUBLINGUAL Q5M PRN PRN Reason: CARDIAC/CHEST PAIN Ondansetron HCl (Zofran) 4 mg IV Q8H PRN PRN PRN Reason: NAUSEA/VOMITING Oxycodone HCl (Oxyir) 5 mg PO Q4H PRN PRN PRN Reason: Pain Score 4-5/10 Prochlorperazine Edisylate (Compazine Iv) 5 mg IV Q4H PRN PRN PRN Reason: Breakthrough Nausea/Vomiting Psyllium Hydrophilic Mucilloid (Metamucil) 1 packet PO DAILY PRN PRN PRN Reason: Constipation Senna/Docusate Sodium (Senokot-S, Kathie-Colace) 2 tablet PO BID PRN PRN PRN Reason: Constipation Sodium Chloride () 10 - 40 ml IV UD PRN PRN Reason: SALINE FLUSH Last Admin: 07/14/19 05:35 Dose: 40 ml Documented by: Throat Lozenges (Cepacol Sore Throat Lozenge) 1 lozenge MUCOUS MEM Q2H PRN PRN PRN Reason: SORE THROAT STROKE Vital Signs/Narrative: Vital Signs Temp Pulse Resp BP Pulse Ox 07/15/19 07:00 62 12 121/71 H 100 07/15/19 06:00 67 11 L 125/69 H 99 07/15/19 05:00 68 13 145/77 H 100 07/15/19 04:00 97.9 F 66 13 104/65 100 07/15/19 03:13 72 Medical Necessity - Tobacco Use Smoking Status: Never smoker Tobacco Use: Non-smoker Assessment/Plan All Active Problems DKA (diabetic ketoacidoses) (Acute) Lactic acidosis (Acute) GILBERTO (acute kidney injury) (Acute) Elevated BP without diagnosis of hypertension (Acute) Diabetic ketoacidosis (Acute) Leukocytosis (Acute) Lactic acidosis due to diabetes mellitus (Acute) Acute kidney injury (Acute) Patient is a 73-year-old gentleman who presented with 1 week history of progressive generalized weakness shortness of breath nausea and vomiting. Patient assessment on admission was consistent with diabetic ketoacidosis as well as acute pancreatitis. Patient apparently has history of chronic alcohol use. Admitted to the intensive care unit for subsequent management 1. Diabetic ketoacidosis ?New onset diabetic admitted to the intensive care unit. Managed with aggressive IV fluids and correction of electrolytes as well as use of insulin. Patient still remains in DKA ?07/15/2019: DKA resolved did initiate long-acting insulin in addition to scheduled pre-meal insulin with correction factor sliding scale. Patient was also started on clear liquids. Ordered diabetic education. 2. Acute kidney injury ?possibly pressure stated by above patient being managed with IV fluids with monitoring of electrolytes ?07/15/2019 kidney function continues to improve 3. Acute pancreatitis -And has history of alcohol use however denies any use of alcohol for the past 3 months. Patient being managed conservatively with bowel rest pain meds as well as use of PPI. He also had right upper quadrant ultrasound performed to rule out gallstones -07/15/2019: Gallbladder ultrasound was unremarkable 4. Hypernatremia -secondary to patient IV fluid resuscitation; start IV fluid with subsequent monitoring of electrolytes 5. Elevated d-dimer ?Ordered venous duplex to rule out DVT. Do plan to obtain CT of the chest once patient kidney function improved patient was covered with therapeutic Lovenox whilst waiting for the kidney function to return to baseline -07/15/2019 CTA ordered for further evaluation 6. Lactic acidosis ?Sepsis ruled out patient lactic acidosis attributed to patient's DKA 7. Leukocytosis with relative lymphopenia -COVID ruled out 8. DVT prophylaxis ?Patient on Lovenox Clinical Impression(s) from Imaging Studies Chest X-Ray 07/13/19 21:57 IMPRESSION: No acute cardiopulmonary disease perceived. at 2212 Reported and signed by: Shayne Bennett MD Electronically Signed: Shayne Bennett MD at 22:11 EDT Tel , Service support , Abdomen Ultrasound 07/14/19 01:43 IMPRESSION: Normal right upper quadrant ultrasound examination. Electronically Signed: Grover Carlson, at 9:45 EDT , Service support , Inpatient E&M: [id number] Subs Hosp L2
--- NOTE | 2019-07-15 09:18 | CT_ITS ---
STUDY: CTA CHEST REASON FOR EXAM: Male, 73 years old. ELEVATED D-DIMER, SOB, N/V RADIATION DOSAGE (If Supplied By Facility): CTDIvol = ( 7.38 ) mGy, DLP = ( 331.66 ) mGycm TECHNIQUE: The examination was performed with the intravenous administration of [id number] 100ML. Post-processing of the angiographic images was performed, with multiplanar reformation and 3D reconstruction. Individualized dose optimization techniques were used for this CT. COMPARISON: None. FINDINGS: Normal enhancement of the main pulmonary artery and right and left pulmonary arteries. Normal enhancement of the bilateral peripheral pulmonary arteries. There is no demonstrated pulmonary embolism. Normal thoracic aorta and visualized great vessels. There is no demonstrated aortic dissection. Normal heart and pericardium. There are visualized mediastinal lymph nodes, which are within normal size limits, and with normal morphology. Normal hilar regions. Normal visualized trachea and bronchi. The lungs are well expanded. Findings suggestive of a mild degree of scarring at the lung apices. Minimal increased linear markings at the lung bases suggestive of atelectasis. This is slightly more prominent at the left lung base. Normal pleura. Normal chest wall structures. There are degenerative changes of thoracic spine. Normal visualized upper abdomen. CT/CTA Chest W/WO Contrast IMPRESSION: Mild increased markings at the lung bases suggestive of linear atelectasis. No evidence of pulmonary embolism. Electronically Signed: Grover Carlson, at 14:45 EDT , Service support ,
[2019-07-15 10:05] LABS: Bedside Glucose 168 mg/dL (70-110)
[2019-07-15 10:25] LABS: Bedside Glucose 208 mg/dL (70-110)
[2019-07-15 10:45] LABS: Bedside Glucose 166 mg/dL (70-110)
[2019-07-15] MEDS: 0.9% Saline Lock 10 ML Syringe IV (11:19)
[2019-07-15] MEDS: Enoxaparin 80 MG/0.8 ML Syringe 70 MG SC ×2 (11:19→21:33)
[2019-07-15 12:00] LABS: Bedside Glucose 172 mg/dL (70-110)
[2019-07-15] MEDS: Insulin Lispro 100 UNIT/ML INSULN.PEN SC ×2 (12:55→17:06)
[2019-07-15 15:06] LABS: Bedside Glucose 283 mg/dL (70-110)
[2019-07-15 15:10] LABS: Bedside Glucose 220 mg/dL (70-110)
[2019-07-15 21:46] LABS: Bedside Glucose 237 mg/dL (70-110)
[2019-07-16 02:02] VITALS: BP 114/67; PULSE 69; RESP 16; TEMP 36.8; O2SAT 97
[2019-07-16 06:04] LABS: Absolute Lymphocyte Count 2.14 X10^3/uL (0.83-4.51); Absolute Neutrophil Count 4.7 X10^3/uL (2.0-7.7); Basophil# 0.01 X10^3/uL; Basophil% 0.1 % (0-1); Eosinophil# 0.02 X10^3/uL; Eosinophils% 0.3 % (0-5); Hematocrit 33.2 % (40-54); Hemoglobin 11.1 g/dL (13.0-16.5); Lymphocyte # 2.14 X10^3/ul (4.0); Lymphocyte % 28.8 % (19-41); Mean Corp Hgb Conc 33.4 g/dL (32-36); Mean Corpuscular Hgb 31.3 pg (27.0-32.0); Mean Corpuscular Volume 93.5 fL (80-94); Mean Platelet Vol. 12.1 fl (6.2-12.0); Monocyte# 0.49 X10^3/uL; Monocyte% 6.6 % (0-10); NRBC Flagged by Analyzer 0 % (0-5); Neutrophil # 4.74 X10^3/uL (2.7-7.7); Neutrophil % 63.9 % (47-70); Platelet Count 132 K/mm3 (150-450); RBC Distribution Width CV 12.8 % (11.6-14.6); RBC Distribution Width SD 43.5 fl (35.1-43.9); Red Blood Count 3.55 M/mm3 (4.6-6.2); White Blood Count 7.4 K/mm3 (4.4-11.0)
[2019-07-16 06:27] LABS: ALB/GLOB Ratio 0.9 RATIO (0.9-2.4); AST(SGOT) 19 U/L (15-37); Alanine Aminotransfer ALT/SGPT 23 U/L (16-61); Albumin, Serum 2.5 g/dL (3.2-5.0); Alkaline Phosphatase 74 U/L (45-117); Anion Gap 8 (5-15); BUN 16 mg/dL (7-18); BUN/Creat Ratio 21.2 RATIO (10-20); Calcium,Total 7.3 mg/dL (8.5-10.1); Chloride 110 mmol/L (98-107); Creatinine, Serum 0.75 mg/dL (0.70-1.30); EST Glomerular Filtration Rate 108 mL/min (>60); Est Glom Filt Rate - Afr Amer 131 mL/min (>60); Estimated Creatinine Clearance 63.35 ml/min; Globulin 2.8 g/dL (2.2-4.2); Glucose 217 mg/dL (74-106); Potassium 2.9 mmol/L (3.5-5.1); Protein, Total 5.3 g/dL (6.4-8.2); Sodium Level 141 mmol/L (136-145)
[2019-07-16 06:40] LABS: Bedside Glucose 194 mg/dL (70-110)
--- NOTE | 2019-07-16 07:11 | PN_ITS ---
Patient Problems: Active and Suspected Problems DKA (diabetic ketoacidoses) (Acute) Lactic acidosis (Acute) GILBERTO (acute kidney injury) (Acute) Elevated BP without diagnosis of hypertension (Acute) Diabetic ketoacidosis (Acute) Leukocytosis (Acute) Lactic acidosis due to diabetes mellitus (Acute) Acute kidney injury (Acute) Reason for Visit: Follow-up new onset diabetes and DKA Subjective: Was transferred from the intensive care unit to regular nursing floor. His acute kidney injury has resolved. Potassium this morning is 2.9. Objective: GENERAL: cooperative HEENT: Atraumatic; EYES; Anicteric, Normal Conjunctiva NECK; supple, normal thyroid, RESPIRATORY: Diminished to auscultation CARDIOVASCULAR: Regular S1 S2, GI: soft, with epigastric tenderness : No Renal angle tenderness; EXTREMITIES: No edema, no clubbing, MUSCULOSKELETAL: no muscle waisting NEURO: Awake; no lateralizing signs. SKIN: No Rash PSYCH; Flat affect Vitals/I&O's: Vital Signs Temp Pulse Resp BP Pulse Ox 98.3 F 69 16 114/67 97 07/16/19 02:02 07/16/19 02:02 07/16/19 02:02 07/16/19 02:02 07/16/19 02:02 Oxygen Delivery Method Room Air Weight: 75.6 kg Body Mass Index (BMI) 25.7 Finger Stick Blood Glucose 172 Intake and Output for Last 24 Hours 07/14/19 07/15/19 07/16/19 23:59 23:59 23:59 Intake Total 4099.43 / 4102.32 4487.52 / 5087.52 1518.33 / 1518.33 Output Total 4850 / 4850 1000 / 1740 1165 / 1165 Balance -750.57 / -747.68 3487.52 / 3347.52 353.33 / 353.33 Laboratory Results 07/15/19 08:08: POC Glucose 208 H 07/15/19 09:46: POC Glucose 168 H 07/15/19 10:38: POC Glucose 166 H 07/15/19 11:56: POC Glucose 172 H 07/15/19 14:07: POC Glucose 220 H 07/15/19 15:01: POC Glucose 283 H 07/15/19 21:35: POC Glucose 237 H 07/16/19 05:29: WBC 7.4, RBC 3.55 L, Hgb 11.1 L, Hct 33.2 L, MCV 93.5, MCH 31.3, MCHC 33.4, RDW Std Deviation 43.5, RDW Coeff of Oscar 12.8, Plt Count 132 L, MPV 12.1 H, Immature Gran % (Auto) 0.300, Neut % (Auto) 63.9, Lymph % (Auto) 28.8, Wolfe % (Auto) 6.6, Eos % (Auto) 0.3, Baso % (Auto) 0.1, Absolute Neuts (auto) 4.7, Absolute Lymphs (auto) 2.14, Nucleated RBC % 0 07/16/19 05:29: Sodium 141, Potassium 2.9 L, Chloride 110 H, Carbon Dioxide 23.0, Anion Gap 8, BUN 16, Creatinine 0.75, Estim Creat Clear Calc 63.35, Est GFR (MDRD) Af Amer 131, Est GFR (MDRD) Non-Af 108, BUN/Creatinine Ratio 21.2 H, Glucose 217 H, Calcium 7.3 L, Total Bilirubin 1.20 H, AST 19, ALT 23, Alkaline Phosphatase 74, Total Protein 5.3 L, Albumin 2.5 L, Globulin 2.8, Albumin/Globulin Ratio 0.9 07/16/19 06:34: POC Glucose 194 H Current Medications Acetaminophen (Tylenol) 650 mg PO Q6H PRN PRN PRN Reason: Pain Score 1-10/Temp > 100.7 F Al Hydroxide/Mg Hydroxide (Mylanta Ii) 30 ml PO Q6H PRN PRN PRN Reason: Gastric Burning Albuterol Sulfate (Ventolin Aerosols) 2.5 mg INHALATION Q2H PRN PRN PRN Reason: Dyspnea, wheezing Dextrose (D50w Syringe) 0 gm IV X1 PRN; Protocol PRN Reason: Hypoglycemia Enoxaparin Sodium (Lovenox) 70 mg SC Q12 [facility] Last Admin: 07/15/19 21:33 Dose: 70 mg Documented by: Glucagon () 1 mg IM .X1 PRN PRN Reason: Hypoglycemia Guaifenesin (Robitussin) 10 ml PO Q4H PRN PRN PRN Reason: COUGH Hydralazine HCl (Apresoline Iv) 10 mg IV Q4H PRN PRN PRN Reason: SBP > 160 Pantoprazole Sodium 40 mg/ (Sodium Chloride) 110 mls @ 330 mls/hr IV Q12 [facility] Last Infusion: 07/15/19 21:52 Dose: Infused Documented by: Sodium Chloride () 250 mls @ 15 mls/hr IV .[id number] PRN PRN Reason: Saline Flush Last Infusion: 07/15/19 09:57 Dose: Infused Documented by: Potassium Chloride/Sodium Chloride (Kcl 20meq In 0.45% Ns 1000ml) 1,000 mls @ 100 mls/hr IV .Q10H [facility] Last Admin: 07/16/19 06:03 Dose: 100 mls/hr Documented by: Potassium Chloride () 10 meq in 100 mls @ 100 mls/hr IV BOLUS Q1H [facility] Stop: 07/16/19 11:14 Insulin Glargine (Lantus (Bkc)) 20 units SC BREAKFAST [facility] Last Admin: 07/15/19 09:50 Dose: 20 u Documented by: Insulin Glargine (Lantus (Bkc)) 20 units SC QHS [facility] Last Admin: 07/15/19 21:36 Dose: 20 units Documented by: Insulin Human Lispro (Humalog Kwikpen (Bkc)) 5 unit SC BREAKFAST [facility] Last Admin: 07/15/19 10:03 Dose: Not Given Documented by: Insulin Human Lispro (Humalog Kwikpen (Bkc)) 5 unit SC DINNER [facility] Last Admin: 07/15/19 17:06 Dose: 5 units Documented by: Insulin Human Lispro (Humalog Kwikpen (Bkc)) 5 unit SC LUNCH [facility] Last Admin: 07/15/19 12:55 Dose: 5 u Documented by: Magnesium Hydroxide (Milk Of Magnesia) 30 ml PO DAILY PRN PRN PRN Reason: Constipation Nitroglycerin (Nitrostat) 0.4 mg SUBLINGUAL Q5M PRN PRN Reason: CARDIAC/CHEST PAIN Ondansetron HCl (Zofran) 4 mg IV Q8H PRN PRN PRN Reason: NAUSEA/VOMITING Potassium Chloride (K-Dur) 40 meq PO X1 ONE Stop: 07/16/19 07:12 Potassium Chloride (K-Dur) 20 meq PO BIDCM [facility] Prochlorperazine Edisylate (Compazine Iv) 5 mg IV Q4H PRN PRN PRN Reason: Breakthrough Nausea/Vomiting Psyllium Hydrophilic Mucilloid (Metamucil) 1 packet PO DAILY PRN PRN PRN Reason: Constipation Senna/Docusate Sodium (Senokot-S, Kathie-Colace) 2 tablet PO BID PRN PRN PRN Reason: Constipation Sodium Chloride () 10 - 40 ml IV UD PRN PRN Reason: SALINE FLUSH Last Admin: 07/15/19 11:19 Dose: 30 ml Documented by: Throat Lozenges (Cepacol Sore Throat Lozenge) 1 lozenge MUCOUS MEM Q2H PRN PRN PRN Reason: SORE THROAT Medical Necessity - Tobacco Use Smoking Status: Never smoker Tobacco Use: Non-smoker Assessment/Plan All Active Problems DKA (diabetic ketoacidoses) (Acute) Lactic acidosis (Acute) GILBERTO (acute kidney injury) (Acute) Elevated BP without diagnosis of hypertension (Acute) Diabetic ketoacidosis (Acute) Leukocytosis (Acute) Lactic acidosis due to diabetes mellitus (Acute) Acute kidney injury (Acute) Patient is a 73-year-old gentleman who presented with 1 week history of progressive generalized weakness shortness of breath nausea and vomiting. Patient assessment on admission was consistent with diabetic ketoacidosis as well as acute pancreatitis. Patient apparently has history of chronic alcohol use. Admitted to the intensive care unit for subsequent management 1. Diabetic ketoacidosis ?New onset diabetic admitted to the intensive care unit. Managed with aggressive IV fluids and correction of electrolytes as well as use of insulin. Patient still remains in DKA ?07/15/2019: DKA resolved did initiate long-acting insulin in addition to scheduled pre-meal insulin with correction factor sliding scale. Patient was also started on clear liquids. Ordered diabetic education. -07/16/2019 patient continues to improve did advance patient activities. 2. Acute kidney injury ?possibly pressure stated by above patient being managed with IV fluids with monitoring of electrolytes ?07/15/2019 kidney function continues to improve ?07/16/2019: Acute kidney injury resolved 3. Acute pancreatitis -And has history of alcohol use however denies any use of alcohol for the past 3 months. Patient being managed conservatively with bowel rest pain meds as well as use of PPI. He also had right upper quadrant ultrasound performed to rule out gallstones -07/15/2019: Gallbladder ultrasound was unremarkable 4. Hypernatremia -secondary to patient IV fluid resuscitation; start IV fluid with subsequent monitoring of electrolytes 5. Elevated d-dimer ?Ordered venous duplex to rule out DVT. Do plan to obtain CT of the chest once patient kidney function improved patient was covered with therapeutic Lovenox whilst waiting for the kidney function to return to baseline -07/15/2019 CTA ordered for further evaluation -07/16/2019; CTA of the chest was negative for PE 6. Lactic acidosis ?Sepsis ruled out patient lactic acidosis attributed to patient's DKA 7. Leukocytosis with relative lymphopenia -COVID ruled out 8. DVT prophylaxis ?Patient on Lovenox 9. Hypokalemia ?Corrected per protocol Inpatient E&M: [id number] Subs Hosp L2
[2019-07-16 08:02] VITALS: BP 128/74; PULSE 64; RESP 16; TEMP 36.7; O2SAT 97
--- NOTE | 2019-07-16 08:02 | PCM.PN.PUL ---
Patient Problems: Active and Suspected Problems DKA (diabetic ketoacidoses) (Acute) Lactic acidosis (Acute) GILBERTO (acute kidney injury) (Acute) Elevated BP without diagnosis of hypertension (Acute) Diabetic ketoacidosis (Acute) Leukocytosis (Acute) Lactic acidosis due to diabetes mellitus (Acute) Acute kidney injury (Acute) Subjective: The patient was seen and examined at the bedside this morning. Events from the last 24 hours have been reviewed. The patient is currently afebrile, hemodynamically stable and maintaining appropriate oxygen saturations on room air. Blood glucose levels are under better control. Potassium is low this morning at 2.9. The patient has remained clinically stable following transfer out of the intensive care unit. Objective: The patient's most recent lab work, culture data and imaging studies have all been personally reviewed. Abdominal ultrasound was largely unremarkable. There was no evidence of gallstones. Lower extremity Doppler study was negative for the presence of DVTs. CTA chest showed no evidence for pulmonary emboli. - Physical Exam Vitals/I&O's: Vital Signs Temp Pulse Resp BP Pulse Ox 98.3 F 69 16 114/67 97 07/16/19 02:02 07/16/19 02:02 07/16/19 02:02 07/16/19 02:02 07/16/19 02:02 Oxygen Delivery Method Room Air Weight: 166 lb 10.711 oz Body Mass Index (BMI) 25.7 Finger Stick Blood Glucose 172 Intake and Output for Last 24 Hours 07/14/19 07/15/19 07/16/19 23:59 23:59 23:59 Intake Total 4099.43 / 4102.32 4487.52 / 5087.52 1518.33 / 1518.33 Output Total 4850 / 4850 1000 / 1740 1165 / 1165 Balance -750.57 / -747.68 3487.52 / 3347.52 353.33 / 353.33 General: Alert, Cooperative, No apparent distress HEENT: Atraumatic, Normocephalic Oral: No Gingival or Mucosal Lesions/ Ulcerations Neck: Supple, No Nodes, Trachea Midline Lungs: Normal air movement, No rhonchi, No wheeze, No rales Cardiovascular: Regular rate, Regular Rhythm, Normal S1, Normal S2 Abdomen: Bowel Sounds Present, Soft, Non Tender Extremities: No clubbing, No cyanosis, No edema Skin: No breakdown Musculoskeletal: No Tenderness to Palpation of Joints or Extremities Lymphatic: No Cervical, Supraclavicular, or Inguinal Adenopathy Neurological: Neuro grossly intact Psych/Mental Status: Normal Affect, Appropriate Labs (Last 48 Hours) 07/13/19 07/14/19 07/14/19 21:30 07:55 07:55 WBC RBC Hgb Hct MCV MCH MCHC RDW Std Deviation RDW Coeff of Oscar Plt Count MPV Immature Gran % (Auto) Neut % (Auto) Lymph % (Auto) [place] % (Auto) Eos % (Auto) Baso % (Auto) Absolute Neuts (auto) Absolute Lymphs (auto) Nucleated RBC % Diff Path Review Reviewed Fibrinogen 258 D-Dimer Quant (PE/DVT) 1.45 H* Sodium 140 Potassium 4.5 Chloride 107 Carbon Dioxide 15.0 L Anion Gap 18 H BUN 64 H Creatinine 1.83 H Estim Creat Clear Calc 34.62 Est GFR (MDRD) Af Amer 47 L Est GFR (MDRD) Non-Af 39 L BUN/Creatinine Ratio 35.0 H Glucose 553 H* Calcium 8.2 L Magnesium Ferritin 533 H Total Bilirubin AST ALT Alkaline Phosphatase Lactate Dehydrogenase 165 Total Creatine Kinase 123 Troponin I 0.043 C-React Prot Ext Range 38.00 H Total Protein Albumin Globulin Albumin/Globulin Ratio Lipase Procalcitonin POC Glucose 07/14/19 07/14/19 07/14/19 07:55 07:55 10:30 WBC RBC Hgb Hct MCV MCH MCHC RDW Std Deviation RDW Coeff of Oscar Plt Count MPV Immature Gran % (Auto) Neut % (Auto) Lymph % (Auto) [place] % (Auto) Eos % (Auto) Baso % (Auto) Absolute Neuts (auto) Absolute Lymphs (auto) Nucleated RBC % Diff Path Review Fibrinogen D-Dimer Quant (PE/DVT) Sodium Potassium Chloride Carbon Dioxide Anion Gap BUN Creatinine Estim Creat Clear Calc Est GFR (MDRD) Af Amer Est GFR (MDRD) Non-Af BUN/Creatinine Ratio Glucose Calcium Magnesium Ferritin Total Bilirubin AST ALT Alkaline Phosphatase Lactate Dehydrogenase Total Creatine Kinase Troponin I C-React Prot Ext Range Total Protein Albumin Globulin Albumin/Globulin Ratio Lipase 5068 H Procalcitonin 0.87 H POC Glucose 464 H* 07/14/19 07/14/19 07/14/19 11:35 12:13 14:14 WBC RBC Hgb Hct MCV MCH MCHC RDW Std Deviation RDW Coeff of Oscar Plt Count MPV Immature Gran % (Auto) Neut % (Auto) Lymph % (Auto) [place] % (Auto) Eos % (Auto) Baso % (Auto) Absolute Neuts (auto) Absolute Lymphs (auto) Nucleated RBC % Diff Path Review Fibrinogen D-Dimer Quant (PE/DVT) Sodium 146 H Potassium 3.9 Chloride 112 H Carbon Dioxide 15.0 L Anion Gap 19 H BUN 57 H Creatinine 1.73 H Estim Creat Clear Calc 36.62 Est GFR (MDRD) Af Amer 50 L Est GFR (MDRD) Non-Af 42 L BUN/Creatinine Ratio 32.9 H Glucose 458 H* Calcium 8.4 L Magnesium Ferritin Total Bilirubin AST ALT Alkaline Phosphatase Lactate Dehydrogenase Total Creatine Kinase Troponin I C-React Prot Ext Range Total Protein Albumin Globulin Albumin/Globulin Ratio Lipase Procalcitonin POC Glucose 421 H 411 H 07/14/19 07/14/19 07/14/19 16:10 16:18 17:30 WBC RBC Hgb Hct MCV MCH MCHC RDW Std Deviation RDW Coeff of Oscar Plt Count MPV Immature Gran % (Auto) Neut % (Auto) Lymph % (Auto) [place] % (Auto) Eos % (Auto) Baso % (Auto) Absolute Neuts (auto) Absolute Lymphs (auto) Nucleated RBC % Diff Path Review Fibrinogen D-Dimer Quant (PE/DVT) Sodium Cancelled 149 H Potassium Cancelled 3.8 Chloride Cancelled 119 H Carbon Dioxide Cancelled 13.0 L Anion Gap Cancelled 17 H BUN Cancelled 46 H Creatinine Cancelled 1.42 H Estim Creat Clear Calc Cancelled 44.61 Est GFR (MDRD) Af Amer Cancelled 63 Est GFR (MDRD) Non-Af Cancelled 52 L BUN/Creatinine Ratio Cancelled 32.4 H Glucose Cancelled 385 H Calcium Cancelled 7.9 L Magnesium Ferritin Total Bilirubin AST ALT Alkaline Phosphatase Lactate Dehydrogenase Total Creatine Kinase Troponin I C-React Prot Ext Range Total Protein Albumin Globulin Albumin/Globulin Ratio Lipase Procalcitonin POC Glucose 383 H 07/14/19 07/14/19 07/14/19 18:10 18:30 19:59 WBC RBC Hgb Hct MCV MCH MCHC RDW Std Deviation RDW Coeff of Oscar Plt Count MPV Immature Gran % (Auto) Neut % (Auto) Lymph % (Auto) [place] % (Auto) Eos % (Auto) Baso % (Auto) Absolute Neuts (auto) Absolute Lymphs (auto) Nucleated RBC % Diff Path Review Fibrinogen D-Dimer Quant (PE/DVT) Sodium Potassium Chloride Carbon Dioxide Anion Gap BUN Creatinine Estim Creat Clear Calc Est GFR (MDRD) Af Amer Est GFR (MDRD) Non-Af BUN/Creatinine Ratio Glucose Calcium Magnesium Ferritin Total Bilirubin AST ALT Alkaline Phosphatase Lactate Dehydrogenase Total Creatine Kinase Troponin I C-React Prot Ext Range Total Protein Albumin Globulin Albumin/Globulin Ratio Lipase Procalcitonin POC Glucose Cancelled 310 H 318 H 07/14/19 07/14/19 07/14/19 21:02 22:15 22:19 WBC RBC Hgb Hct MCV MCH MCHC RDW Std Deviation RDW Coeff of Oscar Plt Count MPV Immature Gran % (Auto) Neut % (Auto) Lymph % (Auto) [place] % (Auto) Eos % (Auto) Baso % (Auto) Absolute Neuts (auto) Absolute Lymphs (auto) Nucleated RBC % Diff Path Review Fibrinogen D-Dimer Quant (PE/DVT) Sodium 150 H Potassium 3.6 Chloride 119 H Carbon Dioxide 20.0 L Anion Gap 11 BUN 38 H Creatinine 1.36 H Estim Creat Clear Calc 46.58 Est GFR (MDRD) Af Amer 66 Est GFR (MDRD) Non-Af 55 L BUN/Creatinine Ratio 27.9 H Glucose 298 H Calcium 7.8 L Magnesium Ferritin Total Bilirubin AST ALT Alkaline Phosphatase Lactate Dehydrogenase Total Creatine Kinase Troponin I C-React Prot Ext Range Total Protein Albumin Globulin Albumin/Globulin Ratio Lipase Procalcitonin POC Glucose 338 H 268 H 07/14/19 07/15/19 07/15/19 23:08 00:01 01:01 WBC RBC Hgb Hct MCV MCH MCHC RDW Std Deviation RDW Coeff of Oscar Plt Count MPV Immature Gran % (Auto) Neut % (Auto) Lymph % (Auto) [place] % (Auto) Eos % (Auto) Baso % (Auto) Absolute Neuts (auto) Absolute Lymphs (auto) Nucleated RBC % Diff Path Review Fibrinogen D-Dimer Quant (PE/DVT) Sodium Potassium Chloride Carbon Dioxide Anion Gap BUN Creatinine Estim Creat Clear Calc Est GFR (MDRD) Af Amer Est GFR (MDRD) Non-Af BUN/Creatinine Ratio Glucose Calcium Magnesium Ferritin Total Bilirubin AST ALT Alkaline Phosphatase Lactate Dehydrogenase Total Creatine Kinase Troponin I C-React Prot Ext Range Total Protein Albumin Globulin Albumin/Globulin Ratio Lipase Procalcitonin POC Glucose 308 H 271 H 257 H 07/15/19 07/15/19 07/15/19 01:59 02:00 02:00 WBC 14.3 H RBC 4.23 L Hgb 13.4 Hct 38.4 L MCV 90.8 MCH 31.7 MCHC 34.9 RDW Std Deviation 41.1 RDW Coeff of Oscar 12.5 Plt Count 190 MPV 11.7 Immature Gran % (Auto) 0.400 Neut % (Auto) 81.7 H Lymph % (Auto) 10.7 L [place] % (Auto) 7.1 Eos % (Auto) 0.0 Baso % (Auto) 0.1 Absolute Neuts (auto) 11.7 H Absolute Lymphs (auto) 1.53 Nucleated RBC % 0 [address] Review Fibrinogen D-Dimer Quant (PE/DVT) Sodium 151 H Potassium 3.8 Chloride 120 H Carbon Dioxide 20.0 L Anion Gap 11 BUN 34 H Creatinine 1.35 H Estim Creat Clear Calc 46.92 Est GFR (MDRD) Af Amer 67 Est GFR (MDRD) Non-Af 55 L BUN/Creatinine Ratio 25.2 H Glucose 241 H Calcium 7.8 L Magnesium 3.0 H Ferritin Total Bilirubin 0.70 AST 17 ALT 23 Alkaline Phosphatase 89 Lactate Dehydrogenase Total Creatine Kinase Troponin I C-React Prot Ext Range Total Protein 6.0 L Albumin 3.1 L Globulin 2.9 Albumin/Globulin Ratio 1.1 Lipase Procalcitonin POC Glucose 235 H 07/15/19 07/15/19 07/15/19 02:00 04:13 06:05 WBC RBC Hgb Hct MCV MCH MCHC RDW Std Deviation RDW Coeff of Oscar Plt Count MPV Immature Gran % (Auto) Neut % (Auto) Lymph % (Auto) [place] % (Auto) Eos % (Auto) Baso % (Auto) Absolute Neuts (auto) Absolute Lymphs (auto) Nucleated RBC % Diff Path Review Fibrinogen D-Dimer Quant (PE/DVT) Sodium Cancelled 148 H Potassium Cancelled 3.5 Chloride Cancelled 118 H Carbon Dioxide Cancelled 21.0 Anion Gap Cancelled 9 BUN Cancelled 28 H Creatinine Cancelled 1.23 Estim Creat Clear Calc Cancelled 51.50 Est GFR (MDRD) Af Amer Cancelled 74 Est GFR (MDRD) Non-Af Cancelled 62 BUN/Creatinine Ratio Cancelled 22.8 H Glucose Cancelled 225 H Calcium Cancelled 7.7 L Magnesium Ferritin Total Bilirubin AST ALT Alkaline Phosphatase Lactate Dehydrogenase Total Creatine Kinase Troponin I C-React Prot Ext Range Total Protein Albumin Globulin Albumin/Globulin Ratio Lipase 1128 H Procalcitonin POC Glucose 214 H 07/15/19 07/15/19 07/15/19 06:05 07:05 08:08 WBC RBC Hgb Hct MCV MCH MCHC RDW Std Deviation RDW Coeff of Oscar Plt Count MPV Immature Gran % (Auto) Neut % (Auto) Lymph % (Auto) [place] % (Auto) Eos % (Auto) Baso % (Auto) Absolute Neuts (auto) Absolute Lymphs (auto) Nucleated RBC % Diff Path Review Fibrinogen D-Dimer Quant (PE/DVT) Sodium Potassium Chloride Carbon Dioxide Anion Gap BUN Creatinine Estim Creat Clear Calc Est GFR (MDRD) Af Amer Est GFR (MDRD) Non-Af BUN/Creatinine Ratio Glucose Calcium Magnesium Ferritin Total Bilirubin AST ALT Alkaline Phosphatase Lactate Dehydrogenase Total Creatine Kinase Troponin I C-React Prot Ext Range Total Protein Albumin Globulin Albumin/Globulin Ratio Lipase Procalcitonin POC Glucose 216 H 218 H 208 H 07/15/19 07/15/19 07/15/19 09:46 10:38 11:56 WBC RBC Hgb Hct MCV MCH MCHC RDW Std Deviation RDW Coeff of Oscar Plt Count MPV Immature Gran % (Auto) Neut % (Auto) Lymph % (Auto) [place] % (Auto) Eos % (Auto) Baso % (Auto) Absolute Neuts (auto) Absolute Lymphs (auto) Nucleated RBC % Diff Path Review Fibrinogen D-Dimer Quant (PE/DVT) Sodium Potassium Chloride Carbon Dioxide Anion Gap BUN Creatinine Estim Creat Clear Calc Est GFR (MDRD) Af Amer Est GFR (MDRD) Non-Af BUN/Creatinine Ratio Glucose Calcium Magnesium Ferritin Total Bilirubin AST ALT Alkaline Phosphatase Lactate Dehydrogenase Total Creatine Kinase Troponin I C-React Prot Ext Range Total Protein Albumin Globulin Albumin/Globulin Ratio Lipase Procalcitonin POC Glucose 168 H 166 H 172 H 07/15/19 07/15/19 07/15/19 14:07 15:01 21:35 WBC RBC Hgb Hct MCV MCH MCHC RDW Std Deviation RDW Coeff of Oscar Plt Count MPV Immature Gran % (Auto) Neut % (Auto) Lymph % (Auto) [place] % (Auto) Eos % (Auto) Baso % (Auto) Absolute Neuts (auto) Absolute Lymphs (auto) Nucleated RBC % Diff Path Review Fibrinogen D-Dimer Quant (PE/DVT) Sodium Potassium Chloride Carbon Dioxide Anion Gap BUN Creatinine Estim Creat Clear Calc Est GFR (MDRD) Af Amer Est GFR (MDRD) Non-Af BUN/Creatinine Ratio Glucose Calcium Magnesium Ferritin Total Bilirubin AST ALT Alkaline Phosphatase Lactate Dehydrogenase Total Creatine Kinase Troponin I C-React Prot Ext Range Total Protein Albumin Globulin Albumin/Globulin Ratio Lipase Procalcitonin POC Glucose 220 H 283 H 237 H 07/16/19 07/16/19 07/16/19 05:29 05:29 06:34 WBC 7.4 RBC 3.55 L Hgb 11.1 L Hct 33.2 L MCV 93.5 MCH 31.3 MCHC 33.4 RDW Std Deviation 43.5 RDW Coeff of Oscar 12.8 Plt Count 132 L MPV 12.1 H Immature Gran % (Auto) 0.300 Neut % (Auto) 63.9 Lymph % (Auto) 28.8 [place] % (Auto) 6.6 Eos % (Auto) 0.3 Baso % (Auto) 0.1 Absolute Neuts (auto) 4.7 Absolute Lymphs (auto) 2.14 Nucleated RBC % 0 [address] Path Review Fibrinogen D-Dimer Quant (PE/DVT) Sodium 141 Potassium 2.9 L Chloride 110 H Carbon Dioxide 23.0 Anion Gap 8 BUN 16 Creatinine 0.75 Estim Creat Clear Calc 63.35 Est GFR (MDRD) Af Amer 131 Est GFR (MDRD) Non-Af 108 BUN/Creatinine Ratio 21.2 H Glucose 217 H Calcium 7.3 L Magnesium Ferritin Total Bilirubin 1.20 H AST 19 ALT 23 Alkaline Phosphatase 74 Lactate Dehydrogenase Total Creatine Kinase Troponin I C-React Prot Ext Range Total Protein 5.3 L Albumin 2.5 L Globulin 2.8 Albumin/Globulin Ratio 0.9 Lipase Procalcitonin POC Glucose 194 H Clinical Impression(s) from Imaging Studies Chest X-Ray 07/13/19 21:57 IMPRESSION: No acute cardiopulmonary disease perceived. at 2212 Reported and signed by: Shayne Bennett MD Electronically Signed: Shayne Bennett MD at 22:11 EDT Tel , Service support , Abdomen Ultrasound 07/14/19 01:43 IMPRESSION: Normal right upper quadrant ultrasound examination. Electronically Signed: Grover Aponteradha, at 9:45 EDT , Service support , Chest CTA 07/15/19 09:18 IMPRESSION: Mild increased markings at the lung bases suggestive of linear atelectasis. No evidence of pulmonary embolism. Electronically Signed: Grover Robyn, at 14:45 EDT , Service support , Current Medications Acetaminophen (Tylenol) 650 mg PO Q6H PRN PRN PRN Reason: Pain Score 1-10/Temp > 100.7 F Al Hydroxide/Mg Hydroxide (Mylanta Ii) 30 ml PO Q6H PRN PRN PRN Reason: Gastric Burning Albuterol Sulfate (Ventolin Aerosols) 2.5 mg INHALATION Q2H PRN PRN PRN Reason: Dyspnea, wheezing Dextrose (D50w Syringe) 0 gm IV X1 PRN; Protocol PRN Reason: Hypoglycemia Enoxaparin Sodium (Lovenox) 70 mg SC Q12 [facility] Last Admin: 07/15/19 21:33 Dose: 70 mg Documented by: Glucagon () 1 mg IM .X1 PRN PRN Reason: Hypoglycemia Guaifenesin (Robitussin) 10 ml PO Q4H PRN PRN PRN Reason: COUGH Hydralazine HCl (Apresoline Iv) 10 mg IV Q4H PRN PRN PRN Reason: SBP > 160 Pantoprazole Sodium 40 mg/ (Sodium Chloride) 110 mls @ 330 mls/hr IV Q12 NORAH Last Infusion: 07/15/19 21:52 Dose: Infused Documented by: Sodium Chloride () 250 mls @ 15 mls/hr IV .[id number] PRN PRN Reason: Saline Flush Last Infusion: 07/15/19 09:57 Dose: Infused Documented by: Potassium Chloride/Sodium Chloride (Kcl 20meq In 0.45% Ns 1000ml) 1,000 mls @ 100 mls/hr IV .Q10H [facility] Last Admin: 07/16/19 06:03 Dose: 100 mls/hr Documented by: Potassium Chloride () 10 meq in 100 mls @ 100 mls/hr IV BOLUS Q1H [facility] Stop: 07/16/19 11:14 Insulin Glargine (Lantus (Bkc)) 20 units SC BREAKFAST [facility] Last Admin: 07/15/19 09:50 Dose: 20 u Documented by: Insulin Glargine (Lantus (Bkc)) 20 units SC QHS [facility] Last Admin: 07/15/19 21:36 Dose: 20 units Documented by: Insulin Human Lispro (Humalog Kwikpen (Bkc)) 5 unit SC BREAKFAST [facility] Last Admin: 07/15/19 10:03 Dose: Not Given Documented by: Insulin Human Lispro (Humalog Kwikpen (Bkc)) 5 unit SC DINNER [facility] Last Admin: 07/15/19 17:06 Dose: 5 units Documented by: Insulin Human Lispro (Humalog Kwikpen (Bkc)) 5 unit SC LUNCH [facility] Last Admin: 07/15/19 12:55 Dose: 5 u Documented by: Magnesium Hydroxide (Milk Of Magnesia) 30 ml PO DAILY PRN PRN PRN Reason: Constipation Nitroglycerin (Nitrostat) 0.4 mg SUBLINGUAL Q5M PRN PRN Reason: CARDIAC/CHEST PAIN Ondansetron HCl (Zofran) 4 mg IV Q8H PRN PRN PRN Reason: NAUSEA/VOMITING Potassium Chloride (K-Dur) [facility] Prochlorperazine Edisylate (Compazine Iv) 5 mg IV Q4H PRN PRN PRN Reason: Breakthrough Nausea/Vomiting Psyllium Hydrophilic Mucilloid (Metamucil) 1 packet PO DAILY PRN PRN PRN Reason: Constipation Senna/Docusate Sodium (Senokot-S, Kathie-Colace) 2 tablet PO BID PRN PRN PRN Reason: Constipation Sodium Chloride () 10 - 40 ml IV UD PRN PRN Reason: SALINE FLUSH Last Admin: 07/15/19 11:19 Dose: 30 ml Documented by: Throat Lozenges (Cepacol Sore Throat Lozenge) 1 lozenge MUCOUS MEM Q2H PRN PRN PRN Reason: SORE THROAT Medical Necessity - Tobacco Use Smoking Status: Never smoker Tobacco Use: Non-smoker Assessment/Plan All Active Problems DKA (diabetic ketoacidoses) (Acute) Lactic acidosis (Acute) GILBERTO (acute kidney injury) (Acute) Elevated BP without diagnosis of hypertension (Acute) Diabetic ketoacidosis (Acute) Leukocytosis (Acute) Lactic acidosis due to diabetes mellitus (Acute) Acute kidney injury (Acute) RECOMMENDATIONS: 1. Continue basal and sliding scale insulin coverage. 2. Aggressive potassium repletion. 3. Discontinue systemic anticoagulation. 4. Encourage incentive spirometer use while in bed and mobilize patient as tolerated. 5. Given the lack of further ICU or pulmonary needs, will sign off. Please call with any additional questions. IMPRESSIONS: 1. Diabetic ketoacidosis Resolved. The patient reported that he was never previously diagnosed with diabetes. He has a hemoglobin A1c greater than 11. Plan to continue basal and sliding scale insulin coverage. Diabetic education to be provided. The patient will require an appointment to establish care with a primary care provider and endocrinology upon discharge. 2. Acute pancreatitis Improved. Unclear precipitating etiology. The patient does have a longstanding history of alcohol dependency. Although there was initial report that he had been abstinent from alcohol for the last 3 months, he did admit to me that he had consumed alcohol on several occasions over the course of the last week. Therefore, alcohol may be a contributing factor. Right upper quadrant ultrasound was unremarkable and showed no evidence of gallstones. The patient is tolerating a diet without issue. 3. Acute kidney injury Improved. Likely prerenal in etiology. The patient's creatinine and urine output improved with supplemental IV fluid hydration. Continue to monitor urine output accordingly. No current indication for renal replacement therapy. 4. History of alcohol dependency Continue to monitor for any signs of alcohol withdrawal. This note was generated with Scripted dictation software. It may contain incorrect words, spelling, and punctuation that were not noted in checking the note before signing. Inpatient E&M: 20366 Subs Hosp L2
[2019-07-16] MEDS: Potassium Chloride 10mEq/100mL 10 MEQ/100 ML IV.SOLN. 100 MEQ IV BOLUS ×4 (08:19→13:40)
[2019-07-16] MEDS: Insulin Lispro 100 UNIT/ML INSULN.PEN SC ×3 (08:20→18:32)
[2019-07-16] MEDS: Enoxaparin 40 MG/0.4 ML Syringe SC (10:00)
[2019-07-16] MEDS: Pantoprazole Sodium 40 MG Tablet PO (10:02)
--- NOTE | 2019-07-16 11:59 | CASEMGMT ---
Social Work Pt presenting with history of alcohol use. SW met with pt and granddaughter in room. Pt is non Martiniquais speaking and granddaughter is present in room and willing to interpret for pt. Granddaughter stating pt has told her and physicians that he did drink while in [place] but since he has been here visiting his family for the last three months he has not drank. About a week ago he started drinking beer again. SW presented option of programs to assist pt in alcohol cessation and provided written information on 180 in Pashto and Martiniquais. Pt was accepting of information and per granddaughter, pt states he is aware that alcohol use is not good for him and he would like information on stopping. Pt will review information with his family and once home and he has spoke with family he will contact [facility] for followup services. TENNILLE Wilson
[2019-07-16 12:06] LABS: Bedside Glucose 260 mg/dL (70-110)
[2019-07-16 14:00] VITALS: BP 130/74; PULSE 68; RESP 16; TEMP 36.6; O2SAT 97
[2019-07-16 18:51] LABS: Bedside Glucose 237 mg/dL (70-110)
[2019-07-16 20:04] VITALS: BP 117/66; PULSE 71; RESP 18; TEMP 36.4; O2SAT 97
[2019-07-16] MEDS: 0.9% Saline Lock 10 ML Syringe IV (21:53)
[2019-07-16 22:06] LABS: Bedside Glucose 291 mg/dL (70-110)
[2019-07-17 02:50] VITALS: BP 133/73; PULSE 67; RESP 16; TEMP 36.5; O2SAT 97
[2019-07-17 06:57] LABS: Absolute Lymphocyte Count 1.77 X10^3/uL (0.83-4.51); Absolute Neutrophil Count 1.5 X10^3/uL (2.0-7.7); Basophil# 0.01 X10^3/uL; Basophil% 0.3 % (0-1); Eosinophil# 0.05 X10^3/uL; Eosinophils% 1.3 % (0-5); Hematocrit 33.5 % (40-54); Hemoglobin 11.6 g/dL (13.0-16.5); Lymphocyte # 1.77 X10^3/ul (4.0); Lymphocyte % 47.7 % (19-41); Mean Corp Hgb Conc 34.6 g/dL (32-36); Mean Corpuscular Volume 89.6 fL (80-94); Mean Platelet Vol. 11.8 fl (6.2-12.0); Monocyte# 0.39 X10^3/uL; Monocyte% 10.5 % (0-10); NRBC Flagged by Analyzer 0 % (0-5); Neutrophil # 1.48 X10^3/uL (2.7-7.7); Neutrophil % 39.9 % (47-70); Platelet Count 117 K/mm3 (150-450); RBC Distribution Width CV 11.9 % (11.6-14.6); RBC Distribution Width SD 38.5 fl (35.1-43.9); Red Blood Count 3.74 M/mm3 (4.6-6.2); White Blood Count 3.7 K/mm3 (4.4-11.0)
[2019-07-17 07:25] LABS: AST(SGOT) 19 U/L (15-37); Alanine Aminotransfer ALT/SGPT 21 U/L (16-61); Albumin, Serum 2.6 g/dL (3.2-5.0); Alkaline Phosphatase 73 U/L (45-117); Anion Gap 6 (5-15); BUN 12 mg/dL (7-18); BUN/Creat Ratio 18.8 RATIO (10-20); Calcium,Total 7.8 mg/dL (8.5-10.1); Chloride 109 mmol/L (98-107); Creatinine, Serum 0.64 mg/dL (0.70-1.30); EST Glomerular Filtration Rate 131 mL/min (>60); Est Glom Filt Rate - Afr Amer 159 mL/min (>60); Estimated Creatinine Clearance 63.35 ml/min; Globulin 2.7 g/dL (2.2-4.2); Glucose 179 mg/dL (74-106); Protein, Total 5.3 g/dL (6.4-8.2); Sodium Level 141 mmol/L (136-145)
[2019-07-17] MEDS: Insulin Lispro 100 UNIT/ML INSULN.PEN SC (08:17)
--- NOTE | 2019-07-17 08:47 | DCINST_ITS ---
- Discharge Diagnoses Current Active Problems: Current Active and Chronic Problems DKA (diabetic ketoacidoses) (Acute) Lactic acidosis (Acute) GILBERTO (acute kidney injury) (Acute) Elevated BP without diagnosis of hypertension (Acute) Alcohol abuse (Chronic) Former tobacco use (Chronic) Diabetic ketoacidosis (Acute) Leukocytosis (Acute) Lactic acidosis due to diabetes mellitus (Acute) Acute kidney injury (Acute) You will use the following diet at home:: Calorie/Carbohydrate Controlled (specify 1200, 1400, etc) - 1800 Discharge Activity: Return to Normal Activity Allergies/Adverse Reactions: Allergies No Known Allergies Allergy (Verified 07/13/19 21:05) Medications to take at Discharge Glipizide 5 mg PO DAILY #60 tab 07/17/19 Pantoprazole Sodium [Protonix] 40 mg PO DAILY #30 tab 07/17/19 Potassium Chloride [K-Dur] 20 meq PO BIDCM #60 tab 07/17/19 metFORMIN HCl [Glucophage] 1,000 mg PO BIDCM #120 tab 07/17/19 The following prescriptions were given: Glipizide 5 mg PO DAILY #60 tab Transmission Status: Pending to [id number] metFORMIN HCl [Glucophage] 1,000 mg PO BIDCM #120 tab Transmission Status: Pending to [facility] Potassium Chloride [K-Dur] 20 meq PO BIDCM #60 tab Transmission Status: Pending to [facility] Pantoprazole Sodium [Protonix] 40 mg PO DAILY #30 tab Transmission Status: Pending to [id number] Primary Care Physician: Care Physician,No Primary [Primary Care Provider] - Test Results: Test results from this visit will be discussed in further detail at your follow- up appointment, if applicable. Proposed Discharge Date: 07/17/19
[2019-07-17 08:50] VITALS: BP 124/71; PULSE 61; RESP 18; TEMP 37; O2SAT 98
[2019-07-17 09:49] VITALS: PULSE 61
[2019-07-17 10:00] VITALS: BP 124/71; PULSE 61; RESP 18; TEMP 37; O2SAT 98
[2019-07-17] MEDS: Enoxaparin 40 MG/0.4 ML Syringe SC (10:07)
[2019-07-17] MEDS: Pantoprazole Sodium 40 MG Tablet PO (10:08)
--- NOTE | 2019-07-21 12:09 | CASEMGMT ---
Social Work Followup Call: Date of Discharge: 07/17/19 Reason for followup: alcohol abuse Time spent coke oven mason: 30 minutes SW spoke with pt granddaughter who states pt is having no concerns with alcohol however, there is concern about blood glucose. BG level last evening 400 and this morning 250. Per granddaughter, pt taking medication as ordered but not following diet. Pt does not have PCP. OTILIO conferred with Shagufta Gunn RNCM. Recommended to granddaughter to continue taking medication and to follow diet as laid out by inventory taker who saw pt in the hospital and continue to monitor BG. SW scheduled appointment with Dr. Her on 08/03/19 at 2:00. Granddaughter made aware of appointment time and that this is first available appointment. Encouraged pt to utilize urgent care if BG continues to be high. Granddaughter expressing understanding. No further SW needs at this time. TENNILLE Wilson
--- NOTE | 2019-07-24 14:06 | DS.PCM_ITS ---
Discharge Date and Diagnosis Date of Admission: 07/13/19 Date of Discharge: 07/17/19 - Primary Discharge Diagnosis Acute Problems: new onset Diabetes DKA - Secondary Discharge Diagnosis Chronic Problems: Chronic Problems Alcohol abuse (Chronic) Former tobacco use (Chronic) Hospital Course and Treatment Summary of Care Provided: [ Patient is a 73-year-old gentleman who presented with 1 week history of progressive generalized weakness shortness of breath nausea and vomiting. Patient assessment on admission was consistent with diabetic ketoacidosis as well as acute pancreatitis. Patient apparently has history of chronic alcohol use. Admitted to the intensive care unit for subsequent management 1. Diabetic ketoacidosis ?New onset diabetic admitted to the intensive care unit. Managed with aggressive IV fluids and correction of electrolytes as well as use of insulin. Patient still remains in DKA ?07/15/2019: DKA resolved did initiate long-acting insulin in addition to schedu led pre-meal insulin with correction factor sliding scale. Patient was also started on clear liquids. Ordered diabetic education. -07/16/2019 patient continues to improve did advance patient activities. 2. Acute kidney injury ?possibly pressure stated by above patient being managed with IV fluids with monitoring of electrolytes ?07/15/2019 kidney function continues to improve ?07/16/2019: Acute kidney injury resolved 3. Acute pancreatitis -And has history of alcohol use however denies any use of alcohol for the past 3 months. Patient being managed conservatively with bowel rest pain meds as well as use of PPI. He also had right upper quadrant ultrasound performed to rule out gallstones -07/15/2019: Gallbladder ultrasound was unremarkable 4. Hypernatremia -secondary to patient IV fluid resuscitation; start IV fluid with subsequent monitoring of electrolytes 5. Elevated d-dimer ?Ordered venous duplex to rule out DVT. Do plan to obtain CT of the chest once patient kidney function improved patient was covered with therapeutic Lovenox whilst waiting for the kidney function to return to baseline -07/15/2019 CTA ordered for further evaluation -07/16/2019; CTA of the chest was negative for PE 6. Lactic acidosis ?Sepsis ruled out patient lactic acidosis attributed to patient's DKA 7. Leukocytosis with relative lymphopenia -COVID ruled out 8. DVT prophylaxis ?Patient on Lovenox - Physical Exam Vitals/I&O's: Vital Signs Temp Pulse Resp BP Pulse Ox 98.6 F 61 18 124/71 H 98 07/17/19 10:00 06/06/20 10:00 07/17/19 10:00 07/17/19 10:00 07/17/19 10:00 Oxygen Delivery Method Room Air Weight: 77.6 kg Body Mass Index (BMI) 25.7 Finger Stick Blood Glucose 172 General: Oriented x3 HEENT: Atraumatic Neck: No JVD Lungs: Clear to auscultation Extremities: No clubbing Discharge Diet: 1800 Calorie Control Diet Discharge Activity: Return to Normal Activity Home Medications: Medications to take at Discharge Glipizide 5 mg PO DAILY #60 tab 07/17/19 Pantoprazole Sodium [Protonix] 40 mg PO DAILY #30 tab 07/17/19 Potassium Chloride [K-Dur] 20 meq PO BIDCM #60 tab 07/17/19 metFORMIN HCl [Glucophage] 1,000 mg PO BIDCM #120 tab 07/17/19 Following Prescrptions Were Given to Patient: Glipizide 5 mg PO DAILY #60 tab Transmission Status: Received by [id number] metFORMIN HCl [Glucophage] 1,000 mg PO BIDCM #120 tab Transmission Status: Received by [id number] Potassium Chloride [K-Dur] 20 meq PO BIDCM #60 tab Transmission Status: Received by [id number] Pantoprazole Sodium [Protonix] 40 mg PO DAILY #30 tab Transmission Status: Received by [id number] Primary Care Physician: Care Physician,No Primary [Primary Care Provider] - Please follow up with your Primary Care Physician in: in 1-2 weeks Disposition: Home Minutes spent on discharge:: 35 Patient Condition:: Stable Medical Necessity - Tobacco Use Smoking Status: Former smoker Tobacco Use: Non-smoker Meaningful Use Info Meaningful Use Diagnoses (Choose all that apply): None applicable Inpatient E&M: 38830 Disch Hosp
== END 2019-07-17 10:41 | disposition home or self-care (01) | DRG 637 ==
LOC: ED 22:35 → ICU 22:52 → MS3 07-15 14:15
PROVIDERS: Internal Medicine Critical Care Medicine; Admitting Provider Family Medicine; Emergency Provider Emergency Medicine; Visit Provider Internal Medicine
DX: E11.10 Type 2 diabetes mellitus with ketoacidosis without coma (principal); K85.90 Acute pancreatitis without necrosis or infection, unspecified; N17.9 Acute kidney failure, unspecified; E87.0 Hyperosmolality and hypernatremia; Z87.891 Personal history of nicotine dependence; K21.9 Gastro-esophageal reflux disease without esophagitis; F10.20 Alcohol dependence, uncomplicated; D72.810 Lymphocytopenia; Z66 Do not resuscitate; I44.4 Left anterior fascicular block; E87.6 Hypokalemia; Y90.9 Presence of alcohol in blood, level not specified
CPT/HCPCS: 36415; 36600; 71046; 71275; 76705; 80048; 80053; 80061; 80320; 81001; 82009; 82550; 82728; 82803; 82947; 82962; 83036; 83605; 83615; 83690; 83735; 84100; 84145; 84484; 85025; 85379; 85384; 86140; 87635; 93005; 93970; 94799; 96360; 97802; 97803; 99251; 99285; J7030; J7040; J7050; Q9967; A4216; G0463; G0480; J2405; J7799; U0003

== ENCOUNTER 2019-07-21 14:59 | Emergency (ER) | payer MEDICARE, SELFPAY ==
[2019-07-14 00:10] VITALS: BMI 25.7
[2019-07-21 15:02] VITALS: BP 125/77; PULSE 76; RESP 16; TEMP 36.2; O2SAT 97; BMI 27.5
--- NOTE | 2019-07-21 16:13 | ED.DCSUM_ITS ---
History of Present Illness Chief Complaint: Hyperglycemia Narrative: Patient is a 73-year-old male who presents with elevated blood sugar. He was recently admitted for new onset diabetes and DKA. He seemed tired yesterday and continues to have polyuria and polydipsia. He has been monitoring his blood sugars at home and has been greater than 400 at times. He denies any pain vomiting diarrhea. And asked about scheduled follow-up patient and visitor uncertain if he has a physician that he is supposed to follow-up with. Past Medical History - Allergies and Home Meds Allergies/Adverse Reactions: Allergies No Known Allergies Allergy (Verified 07/21/19 15:05) Primary Care Physician: Care Physician,No Primary [Primary Care Provider] - Past Medical History: - - Diabetes Surgical History: no surgical history Smoking Status: Never smoker - Family History Maternal Family History: Reports: - - Patient denies any market maternal or paternal family history including heart disease, diabetes or cancer. Paternal Family History: Reports: - - Patient denies any market maternal or paternal family history including heart disease, diabetes or cancer. Review of Systems All systems negative except as indicated General: Denies: Fever Eyes: Denies: Visual changes - bilaterally ENT: Denies: Bilateral ear pain Cardiovascular: Denies: Chest pain Respiratory: Denies: Dyspnea Gastrointestinal: Denies: Abdominal pain, Nausea, Vomiting, Diarrhea Musculoskeletal: Denies: Myalgias, Arthralgias Skin: Denies: Rash Neurological: Denies: Headache Endocrine: Reports: Polyuria, Polydipsia Allergy: Denies: Uticaria Physical Exam Vital Signs/Narrative: Vital Signs Temp Pulse Resp BP Pulse Ox 07/21/19 15:02 97.2 F L 76 16 125/77 H 97 Inital Vital Signs reviewed: Yes General: Well nourished Head: Normocephalic Eyes: EOMI ENT: Moist mucous membranes Neck: Supple Cardiovascular: Regular rate, Regular rhythm Respiratory: No distress, CTA bilaterally Abdomen: Soft, Nontender Skin: Normal color Neurological: Alert Psychological: Normal affect Diagnostic/Tx/Re-eval Laboratory Results 07/21/19 07/21/19 07/21/19 16:51 16:51 16:51 WBC 6.1 RBC 3.87 L Hgb 12.1 L Hct 36.4 L MCV 94.1 H D MCH 31.3 MCHC 33.2 RDW Std Deviation 40.2 RDW Coeff of Oscar 11.9 Plt Count 175 MPV 11.8 Immature Gran % (Auto) 2.100 H Neut % (Auto) 52.6 Lymph % (Auto) 28.0 [place] % (Auto) 15.0 H Eos % (Auto) 1.8 Baso % (Auto) 0.5 Absolute Neuts (auto) 3.2 Absolute Lymphs (auto) 1.70 Nucleated RBC % 0 VBG pH VBG pO2 VBG O2 Sat (Calc) VBG O2 Content VBG Base Excess POC Mix VBG pCO2 Pt Tmp Sodium 134 L Potassium 4.0 Chloride 98 Carbon Dioxide 29.0 Anion Gap 7 BUN 13 Creatinine 0.91 Estim Creat Clear Calc 67.19 Est GFR (MDRD) Af Amer 106 Est GFR (MDRD) Non-Af 87 BUN/Creatinine Ratio 14.3 Glucose 264 H Calcium 8.5 Acetone Level NEGATIVE 07/21/19 17:03 WBC RBC Hgb Hct MCV MCH MCHC RDW Std Deviation RDW Coeff of Oscar Plt Count MPV Immature Gran % (Auto) Neut % (Auto) Lymph % (Auto) [place] % (Auto) Eos % (Auto) Baso % (Auto) Absolute Neuts (auto) Absolute Lymphs (auto) Nucleated RBC % VBG pH 7.43 H VBG pO2 30 VBG O2 Sat (Calc) 59 VBG O2 Content 26 VBG Base Excess 0 POC Mix VBG pCO2 Pt Tmp 37.0 L Sodium Potassium Chloride Carbon Dioxide Anion Gap BUN Creatinine Estim Creat Clear Calc Est GFR (MDRD) Af Amer Est GFR (MDRD) Non-Af BUN/Creatinine Ratio Glucose Calcium Acetone Level - Medical Decision Making Patient was given IV fluids. Labs notable for glucose of 264. No elevated anion gap, serum ketones, acidosis. We did have social work give him resources including for the diabetic clinic. We confirmed that he has follow-up scheduled with Dr. Her and made sure they knew when adn where this appointment was. Patient discharged. ED Disposition - Plan for ED Patient: Disposition: Home or Assisted Living Diagnosis: Hyperglycemia due to diabetes mellitus Instructions: ED Diabetes Overview, ED Diabetic Hyperglycemia Referrals: Care Physician,No Primary [Primary Care Provider] - Lopez Her MD [STAFF PHYSICIAN] -
--- NOTE | 2019-07-21 16:35 | CM.ED ---
Social Work Consult: Resources Informant: Dr. Mariah Lemus requesting social work services to assist with establishing follow-up care for patient in the community as patient reports to not be sure if patient has follow scheduled with doctors. Per chart review, patient has follow-up call today with health social work professor and was set up with a new patient appointment with Dr. Her on August 03, 2019 at 2:00pm. Met with patient and patient daughter in room. Introduced self as well as health social work professor role. Patient primary spoken language is [place]ian. Patient daughter interpreting for this health social work professor. Patient confirmed to not be sure if patient has any follow up appointments with doctors. This health social work professor provided patient/patient daughter with written information on above appointment time and date. Patient daughter also voiced concerned about patient being able to manage recommended diet at home. This health social work professor educated patient/patient daughter on Diabetic Clinic resource. This health social work professor did confirm that the Diabetic Clinic is still open and meeting with patients 1:1. This health social work professor provided patient with rack card for the Diabetic Clinic and educated patient daughter that a doctors order will need to be obtained from Dr. Her to begin the clinic. Patient/patient daughter voiced understanding. Patient/patient daughter voiced no further needs. Updated Dr. Lemus on social work assessment and resources provided. Allison Gay MSW, NAMRATA
[2019-07-21] MEDS: 0.9% Normal Saline 1,000 ML 999 ML IV ×2 (16:40→17:46)
[2019-07-21 17:04] LABS: Absolute Neutrophil Count 3.2 X10^3/uL (2.0-7.7); Basophil# 0.03 X10^3/uL; Basophil% 0.5 % (0-1); Eosinophil# 0.11 X10^3/uL; Eosinophils% 1.8 % (0-5); Hematocrit 36.4 % (40-54); Hemoglobin 12.1 g/dL (13.0-16.5); Mean Corp Hgb Conc 33.2 g/dL (32-36); Mean Corpuscular Hgb 31.3 pg (27.0-32.0); Mean Corpuscular Volume 94.1 fL (80-94); Mean Platelet Vol. 11.8 fl (6.2-12.0); Monocyte# 0.91 X10^3/uL; NRBC Flagged by Analyzer 0 % (0-5); Neutrophil % 52.6 % (47-70); Platelet Count 175 K/mm3 (150-450); RBC Distribution Width CV 11.9 % (11.6-14.6); RBC Distribution Width SD 40.2 fl (35.1-43.9); Red Blood Count 3.87 M/mm3 (4.6-6.2); White Blood Count 6.1 K/mm3 (4.4-11.0)
[2019-07-21 17:16] LABS: VBG BASE EXCESS 0 mmol/L (-1.0-3.5); VBG Bicarbonate 25 mmol/L (22-26); VBG Oxygen Content 26 mmol/L (23-33); VBG PO2 30 mmHg (25-40); VBG SO2 59 % (50-70); VBG pH 7.43 (7.32-7.42)
[2019-07-21 17:18] LABS: Anion Gap 7 (5-15); BUN 13 mg/dL (7-18); BUN/Creat Ratio 14.3 RATIO (10-20); Calcium,Total 8.5 mg/dL (8.5-10.1); Chloride 98 mmol/L (98-107); Creatinine, Serum 0.91 mg/dL (0.70-1.30); EST Glomerular Filtration Rate 87 mL/min (>60); Est Glom Filt Rate - Afr Amer 106 mL/min (>60); Estimated Creatinine Clearance 67.19 ml/min; Glucose 264 mg/dL (74-106); Sodium Level 134 mmol/L (136-145)
[2019-07-21 17:45] VITALS: BP 117/70; PULSE 63; RESP 18; O2SAT 98
[2019-07-21 18:13] LABS: Blood Gas Specimen Type VEN
[2019-07-21 19:16] VITALS: RESP 16
== END 2019-07-21 19:16 | disposition home or self-care (01) ==
PROVIDERS: Emergency Provider Emergency Medicine
DX: E11.10 Type 2 diabetes mellitus with ketoacidosis without coma (principal)
CPT/HCPCS: 80048; 82009; 85025; 96360; 96361; 99283; J7030; A4216

== ENCOUNTER → 2019-08-03 14:58 | Outpatient (CLI) | payer MEDICARE, SELFPAY ==
[2019-08-03 14:15] VITALS: BMI 27.5
[2019-08-03 17:40] LABS: Absolute Neutrophil Count 2.5 X10^3/uL (2.0-7.7); Basophil# 0.03 X10^3/uL; Basophil% 0.6 % (0-1); Eosinophil# 0.14 X10^3/uL; Eosinophils% 2.7 % (0-5); Hematocrit 37.8 % (40-54); Hemoglobin 12.3 g/dL (13.0-16.5); Lymphocyte % 36.5 % (19-41); Mean Corp Hgb Conc 32.5 g/dL (32-36); Mean Corpuscular Hgb 31.7 pg (27.0-32.0); Mean Corpuscular Volume 97.4 fL (80-94); Mean Platelet Vol. 11.4 fl (6.2-12.0); Monocyte# 0.58 X10^3/uL; Monocyte% 11.1 % (0-10); NRBC Flagged by Analyzer 0 % (0-5); Neutrophil # 2.54 X10^3/uL (2.7-7.7); Neutrophil % 48.7 % (47-70); Platelet Count 241 K/mm3 (150-450); RBC Distribution Width CV 13.6 % (11.6-14.6); RBC Distribution Width SD 47.6 fl (35.1-43.9); Red Blood Count 3.88 M/mm3 (4.6-6.2); White Blood Count 5.2 K/mm3 (4.4-11.0)
[2019-08-03 18:03] LABS: AST(SGOT) 27 U/L (15-37); Alanine Aminotransfer ALT/SGPT 34 U/L (16-61); Albumin, Serum 3.8 g/dL (3.2-5.0); Alkaline Phosphatase 70 U/L (45-117); Amylase 110 U/L (25-115); Anion Gap 8 (5-15); BUN 15 mg/dL (7-18); BUN/Creat Ratio 16.2 RATIO (10-20); Calcium,Total 9.4 mg/dL (8.5-10.1); Chloride 103 mmol/L (98-107); Creatinine, Serum 0.92 mg/dL (0.70-1.30); EST Glomerular Filtration Rate 86 mL/min (>60); Est Glom Filt Rate - Afr Amer 103 mL/min (>60); Globulin 3.7 g/dL (2.2-4.2); Glucose 90 mg/dL (74-106); Lipase 846 U/L (73-393); Potassium 4.7 mmol/L (3.5-5.1); Protein, Total 7.5 g/dL (6.4-8.2); Sodium Level 137 mmol/L (136-145)
[2019-08-03 18:20] LABS: Microalbumin,Random Urine 7.8 mg/L (NO RANGE EST.)
== END ==
PROVIDERS: PCP Internal Medicine; Referring Provider Internal Medicine; Visit Provider Internal Medicine
DX: K85.90 Acute pancreatitis without necrosis or infection, unspecified (principal); E11.10 Type 2 diabetes mellitus with ketoacidosis without coma
CPT/HCPCS: 36415; 80053; 82043; 82150; 82570; 83690; 85025

== ENCOUNTER → 2019-09-07 13:35 | Outpatient (CLI) | payer MEDICARE, SELFPAY ==
[2019-09-07 13:13] VITALS: BMI 27.5
[2019-09-07 15:42] LABS: ALB/GLOB Ratio 1.1 RATIO (0.9-2.4); AST(SGOT) 25 U/L (15-37); Alanine Aminotransfer ALT/SGPT 34 U/L (16-61); Albumin, Serum 4.3 g/dL (3.2-5.0); Alkaline Phosphatase 76 U/L (45-117); Anion Gap 7 (5-15); BUN 21 mg/dL (7-18); BUN/Creat Ratio 20.8 RATIO (10-20); Calcium,Total 9.3 mg/dL (8.5-10.1); Chloride 105 mmol/L (98-107); Creatinine, Serum 1.01 mg/dL (0.70-1.30); EST Glomerular Filtration Rate 77 mL/min (>60); Est Glom Filt Rate - Afr Amer 93 mL/min (>60); Globulin 3.9 g/dL (2.2-4.2); Glucose 119 mg/dL (74-106); Potassium 3.8 mmol/L (3.5-5.1); Protein, Total 8.2 g/dL (6.4-8.2); Sodium Level 137 mmol/L (136-145)
[2019-09-07 15:45] LABS: Hemoglobin A1c 7.3 % (3.8-5.6)
== END ==
PROVIDERS: PCP Internal Medicine; Referring Provider Internal Medicine; Visit Provider Internal Medicine
DX: E11.9 Type 2 diabetes mellitus without complications (principal)
CPT/HCPCS: 36415; 80053; 83036